=== PATIENT | female | born 2000 | race Caucasian/White ===

== ENCOUNTER 2018-01-24 21:07 | Emergency (ER) | payer OTHER, SELFPAY ==
[2018-01-24 21:08] VITALS: BP 124/78; PULSE 97; RESP 15; TEMP 36.7; BMI 43.7
[2018-01-24] MEDS: Naproxen 250 MG Tablet 500 MG PO (22:16)
--- NOTE | 2018-01-24 22:17 | ED.DCSUM_ITS ---
- ER Visit Summary Date of Service: 01/24/18 Chief Complaint: Low back pain History of Present Illness: The patient is a 17 F past medical history of noncemented diabetes. She states openly that she is noncompliant is not taking any medications and does not check her blood sugars. States that she has had low back pain now for approximately 3 weeks worse with movement. Denies any fall or trauma. Denies any fever or dysuria. She has never had back surgery. She denies any redness or swelling to her low back. No weakness or numbness in her lower extremities no bowel or bladder incontinence. No prior history. Physical Examination: Well-appearing young female. Vital signs are stable afebrile. She sitting upright in bed no distress. H EENT exam unremarkable. Neck nontender no lymphadenopathy. Lungs clear to auscultation bilaterally. Heart regular rhythm no murmur. Abdomen soft nontender nondistended normal bowel sounds no peritoneal signs. She is moving all 4 extremities. Neurovascular intact. No cauda equina. Normal medial thigh sensation. Normal motor strength in both lower extremities with 5 out of 5 motor strength with dorsi plantarflexion. Full range of motion intact. Normal sensation. Upper extremities are normal neurologically also. Her back exam there is no reproducible tenderness. No signs of trauma. No redness or warmth. No spine abnormalities. Over her lower lumbar coccyx area is where the pain is but there is no reproducible tenderness. There is no signs of a pilonidal cyst or abscess. Test Results: None Emergency Department Course and Treatment: Patient be placed on Naprosyn for pain. She will be referred to Dr. Blevins if she is not improving. We will check a BG T prior to discharge. Treatment Plan: Naprosyn for pain. Disposition: Discharge Impression: Musculoskeletal low back pain This note was generated with [employer] dictation software. It may contain incorrect words, spelling, and punctuation that were not noted in review of the chart prior to signing ED Disposition - Plan for ED Patient: Chief Complaint: Back Referrals: Care Physician,No Primary [Primary Care Provider] -
--- NOTE | 2018-01-24 22:17 | ED.DEP ---
ED Disposition - Plan for ED Patient: Disposition: Home or Assisted Living Chief Complaint: Back Instructions: ED Neck Back Pain General Prescriptions: Naproxen [Naprosyn] 500 mg PO BID PRN PRN #20 tab PRN Reason: Pain Referrals: Jose Cruz Robles MD [STAFF PHYSICIAN] - Additional Instructions: Ice and heat to the affected area of the lower back. Naprosyn for medication no more than 2 pills per day. Return if feeling worse weakness or numbness. Otherwise follow-up with Dr. Zander Robles to obtain a new primary care physician.
[2018-01-24 22:20] VITALS: PULSE 96; RESP 18
[2018-01-24 22:30] LABS: Bedside Glucose 110 mg/dL (70-110)
== END 2018-01-24 22:26 | disposition home or self-care (01) ==
PROVIDERS: Emergency Provider Emergency Medicine
DX: M54.5 Low back pain (principal); E11.9 Type 2 diabetes mellitus without complications; Z91.14 Patient's other noncompliance with medication regimen; Z91.19 Patient's noncompliance with other medical treatment and regimen; Z72.0 Tobacco use
CPT/HCPCS: 82962; 99282

== ENCOUNTER 2018-04-27 13:38 | Emergency (ER) | payer OTHER, MEDICAID, SELFPAY ==
[2018-04-27 13:39] VITALS: BP 122/83; PULSE 66; RESP 16; TEMP 36.4; O2SAT 98; BMI 28.3
[2018-04-27] MEDS: 0.9% Normal Saline 1,000 ML 999 ML IV (14:00)
--- NOTE | 2018-04-27 14:09 | ED.VISSUMM ---
- ER Visit Summary Date of Service: 04/27/18 Chief Complaint: Headache History of Present Illness: The patient is a 17 F who presents with a headache. Been going on for 3 hours. She states it is throbbing in both her bitemporal areas. She has had nausea with vomiting. She states that she is seeing spots. No direct trauma. No history of migraines in the past. She did not take any medications for this today. She does have a history of chronic back pain. Patient was seen at an urgent care today and directed to come to the emergency department for a stroke workup. Physical Examination: Vital signs reviewed. HEENT exam unremarkable. Heart is regular rate and rhythm without murmurs. Lungs are clear to auscultation. Abdomen is soft and nontender. Extremities reveal no edema. Skin exam normal. Neurologic exam normal. Test Results: HCG negative Emergency Department Course and Treatment: Patient received Compazine and Benadryl and IV fluids. She feels much better. This is likely a primary headache. She has no focal neurologic deficits. I do not feel that imaging is necessary at this time. I will give her naproxen for pain at home. She will follow-up with her PCP Treatment Plan: [] Disposition: Discharge Impression: Headache This note was generated with [email or web address] dictation software. It may contain incorrect words, spelling, and punctuation that were not noted in review of the chart prior to signing ED Disposition - Plan for ED Patient: Chief Complaint: Headache Referrals: Care Physician,No Primary [Primary Care Provider] -
[2018-04-27] MEDS: DiphenhydrAMINE 50 MG/ML Syringe 25 MG IV (14:18)
[2018-04-27] MEDS: proCHLORPERazine 10 MG/2 ML Vial IV (14:18)
[2018-04-27 14:41] LABS: Pregnancy, Serum, hCG Quali. NEGATIVE Negative (0-9 Nonpreg)
--- NOTE | 2018-04-27 15:01 | ED.DEP ---
ED Disposition - Plan for ED Patient: Disposition: Home or Assisted Living Chief Complaint: Headache Instructions: ED Cephalgia Unspecified Prescriptions: Naproxen [Naprosyn] 500 mg PO BID PRN #20 tab Referrals: Care Physician,No Primary [Primary Care Provider] -
[2018-04-27 15:22] VITALS: BP 98/66; PULSE 68; RESP 16
== END 2018-04-27 15:22 | disposition home or self-care (01) ==
PROVIDERS: Emergency Provider Emergency Medicine
DX: R51 Headache (principal); Z72.0 Tobacco use
CPT/HCPCS: 84703; 96361; 96374; 96375; 99285; J7030

== ENCOUNTER 2018-05-22 17:47 | Emergency (ER) | payer OTHER, MEDICAID, SELFPAY ==
[2018-05-22 17:49] VITALS: BP 118/68; PULSE 89; RESP 17; TEMP 37.2; O2SAT 100; BMI 28.2
--- NOTE | 2018-05-22 18:12 | ED.VISSUMM ---
- ER Visit Summary Date of Service: 05/22/18 Chief Complaint: Pelvic pain History of Present Illness: The patient is a 17 F 2 day history lower pelvic cramping. Home test positive a week ago. Abnormal menstrual periods, last menstrual period was January of this year. TIRE WRAPPER is in [place]. She has appointment upcoming week. She states she called her STEM MAKER today was told in the ED for workup with ultrasound. She takes vitamins. Denies any vaginal bleeding or discharge. Denies urinary symptoms. . History of thyroidectomy. States diabetic history. Takes no medications except for prenatals currently. Physical Examination: General: Alert and oriented ?3, no acute distress HEENT: Normocephalic, atraumatic. Moist mucosa membranes Neck: supple, nontender. Cardiovascular: Regular rate and rhythm, no murmurs Respiratory: Normal breath sounds, symmetric, no distress Abdomen: Soft, nontender, nondistended Extremities: Nontender, no edema, pulses intact ?4 Neuro: no focal neurological deficits. Test Results: Urine 100 leukocytes, WBCs 10-25. Urine culture pending. HCG 29,377. Ultrasound notes intrauterine 6 weeks and 0 days. Emergency Department Course and Treatment: Patient no vaginal bleeding or clots. Complains of cramping. She was given one [place]. Workup initiated hCG is 29,000. Ultrasound obtained intrauterine at 6 weeks. Urine did note signs of infections culture sent. With her being will be started on Macrobid. She will keep her follow-up with her OB. Smoking cessation discussed. Use Tylenol as needed. Treatment Plan: [] Disposition: Discharge Impression: 1. First trimester intrauterine 2. UTI in This note was generated with [employer] dictation software. It may contain incorrect words, spelling, and punctuation that were not noted in review of the chart prior to signing ED Disposition - Plan for ED Patient: Disposition: Home or Assisted Living Chief Complaint: Abd Pain Diagnosis: First trimester , UTI in Instructions: : Your First Trimester Changes, Understanding Urinary Tract Infections (UTIs) Prescriptions: Nitrofurantoin Macrocrystals [Macrobid] 100 mg PO Q12 #10 capsule Referrals: Care Physician,No Primary [Primary Care Provider] - Additional Instructions: Stop smoking. Continue prenatals. Take antibiotic as prescribed. Keep follow-up with your TIRE WRAPPER.
[2018-05-22 18:35] LABS: Mucous, Urine 0 SEEN /hpf (<or=2+)
[2018-05-22 18:39] LABS: Color, Urine Yellow (Yellow); Glucose, Dipstick Normal (Normal); Ketone-Dipstick 5 mg/dl (Negative); Leukocyte Esterase-Dipstick 100 /ul (Negative); Nitrite-Dipstick Negative (Negative); Occult Blood-Urine 10 /ul (Negative); Protein-Dipstick 15 mg/dl (Negative); Specific Gravity, Urine 1.015 (1.002-1.030); Urine Bilirubin Dipstick Negative (Negative); Urine Clarity Cloudy (Clear); Urine Urobilinogen 4 mg/dl (Normal)
[2018-05-22 18:50] LABS: Red Blood Cells-Urine 0-5 SEEN /hpf (0-5); Squamous Epithelial Cells - UA 0-5 SEEN /hpf (5-10)
[2018-05-22 18:51] LABS: Bacteria 1+ /hpf (None Seen)
[2018-05-22 18:52] LABS: Amorphous Sediment 3+; White Blood Cells 10-25 SEEN /hpf (0-5)
[2018-05-22] MEDS: HYDROcodone Bitartrate/Apap 5/325 Tablet PO (19:14)
[2018-05-22 19:26] LABS: hCG Titer Quant., Serum 29377 mIU/mL (<9 non-preg)
[2018-05-22] MEDS: Nitrofurantoin Macrocrystals 100 MG Capsule PO (20:40)
[2018-05-22 20:42] VITALS: BP 124/82; PULSE 75; RESP 18; O2SAT 96
== END 2018-05-22 20:46 | disposition home or self-care (01) ==
PROVIDERS: Emergency Provider Emergency Medicine
DX: O23.41 Unspecified infection of urinary tract in pregnancy, first trimester (principal); B96.89 Other specified bacterial agents as the cause of diseases classified elsewhere; O99.331 Smoking (tobacco) complicating pregnancy, first trimester; Z3A.01 Less than 8 weeks gestation of pregnancy
CPT/HCPCS: 36415; 76817; 81001; 84702; 87086; 87088; 87186; 99283

== ENCOUNTER → 2018-07-02 14:01 | Outpatient (CLI) | payer MEDICAID, OTHER, SELFPAY ==
[2018-07-02 14:28] LABS: Absolute Lymphocyte Count 1.77 X10^3/ul (0.83-4.51); Absolute Neutrophil Count 4.6 X10^3/uL (2.0-7.7); Eosinophil# 0.04 X10^3/uL; Eosinophils% 0.6 % (0-5); Hematocrit 35.4 % (37-47); Hemoglobin 11.7 g/dl (12.0-15.0); Lymphocyte # 1.77 X10^3/ul (4.0); Lymphocyte % 26.4 % (19-41); Mean Corp Hgb Conc 33.1 g/gl (32-36); Mean Corpuscular Hgb 29.3 pg (27.0-32.0); Mean Corpuscular Volume 88.7 fL (81-99); Mean Platelet Vol. 10.2 fl (6.2-12.0); Monocyte# 0.28 X10^3/uL; Monocyte% 4.2 % (0-10); Neutrophil % 68.5 % (47-70); POSITIVE COUNT NO; POSITIVE DIFFERENTIAL NO; POSITIVE MORPHOLOGY NO; Platelet Count 259 K/mm3 (150-450); RBC Distribution Width CV 14.4 % (11.6-14.6); RBC Distribution Width SD 46.6 fl (35.1-43.9); Red Blood Count 3.99 M/mm3 (4.2-5.4); White Blood Count 6.7 K/mm3 (4.4-11.0)
[2018-07-02 14:46] LABS: Protein, Urine (Random) 17.2 mg/dL (<11.9); Protein:Creat Ratio 91 mg/g CRE (0-200)
[2018-07-02 14:50] LABS: Hemoglobin A1c 5.6 % (4.2-6.3)
[2018-07-02 15:11] LABS: ALB/GLOB Ratio 0.9 RATIO (0.9-2.4); AST(SGOT) 12 U/L (15-37); Alanine Aminotransfer ALT/SGPT 15 U/L (13-56); Albumin, Serum 3.5 g/dL (3.2-5.0); Alkaline Phosphatase 77 U/L (45-117); Anion Gap 9 (5-15); BUN 6 mg/dL (7-18); BUN/Creat Ratio 10.3 RATIO (10-20); Calcium,Total 8.9 mg/dL (8.5-10.1); Chloride 105 mmol/L (98-107); Creatinine, Serum 0.58 mg/dL (0.55-1.02); EST Glomerular Filtration Rate 141 mL/min (>60); Est Glom Filt Rate - Afr Amer 170 mL/min (>60); Glucose 87 mg/dL (74-106); Potassium 3.7 mmol/L (3.5-5.1); Protein, Total 7.5 g/dL (6.4-8.2); Sodium Level 140 mmol/L (136-145); T4 Free Direct 0.46 ng/dL (0.76-1.46)
[2018-07-02 15:21] LABS: Amphetamine Urine VISTA NEGATIVE (<1000 ng/mL); Barbiturate Urine VISTA NEGATIVE (< 200 ng/mL); Benzodiazepine Urine VISTA NEGATIVE (< 200 ng/mL); Cocaine Urine VISTA NEGATIVE (< 300 ng/mL); Ecstacy Urine VISTA NEGATIVE (< 500 ng/mL); Methadone Urine VISTA NEGATIVE (< 300 ng/mL); PCP Urine VISTA NEGATIVE (< 25 ng/mL); THC Urine VISTA POSITIVE (< 50 ng/mL); Vista UDS pH Range 7
[2018-07-02 15:50] LABS: HIV - WCH Non-Reactive (Nonreactive); Rubella IgG 24.9 IU/mL
[2018-07-02 16:17] LABS: Chlamydia Trachomatis by PCR Negative (Negative); Neisserai gonorrhoeae by PCR Negative (Negative); Probe Check PASS; Sample Adequacy Control PASS; Specimen Processing Control PASS
[2018-07-07 13:54] LABS: CF, Screen Comment: (.); HEPATITIS B SURFACE AG Negative (Negative)
[2018-07-09 05:43] LABS: Rapid Plasmin Reagin (RPR) NONREACTIVE (NONREACTIVE)
== END ==
PROVIDERS: Referring Provider Obstetrics & Gynecology; Visit Provider Obstetrics & Gynecology
DX: O09.91 Supervision of high risk pregnancy, unspecified, first trimester (principal); Z3A.00 Weeks of gestation of pregnancy not specified
CPT/HCPCS: 36415; 80053; 80307; 81220; 82570; 83036; 84156; 84439; 84443; 85025; 86592; 86703; 86762; 86850; 86900; 87086; 87088; 87186; 87340; 87491; 87591

== ENCOUNTER → 2018-07-02 17:23 | Outpatient (CLI) | payer MEDICAID, OTHER, SELFPAY ==
[2018-07-02 19:32] LABS: Chlamydia Trachomatis by PCR Negative (Negative); Neisserai gonorrhoeae by PCR Negative (Negative); Probe Check PASS; Sample Adequacy Control PASS; Specimen Processing Control PASS
== END ==
PROVIDERS: Referring Provider Obstetrics & Gynecology; Visit Provider Obstetrics & Gynecology
DX: O09.91 Supervision of high risk pregnancy, unspecified, first trimester (principal); Z3A.00 Weeks of gestation of pregnancy not specified
CPT/HCPCS: 36415; 80053; 80307; 81220; 82570; 83036; 84156; 84439; 84443; 85025; 86592; 86703; 86762; 86850; 86900; 87086; 87088; 87186; 87340; 87491; 87591

== ENCOUNTER → 2018-08-27 13:12 | Outpatient (CLI) | payer OTHER, MEDICAID, SELFPAY ==
[2018-08-27 13:37] LABS: Absolute Neutrophil Count 7.6 X10^3/uL (2.0-7.7); Basophil# 0.01 X10^3/uL; Basophil% 0.1 % (0-1); Differential Indicated SCAN CRITERIA MET; Eosinophil# 0.03 X10^3/uL; Eosinophils% 0.3 % (0-5); Hematocrit 29.4 % (37-47); Hemoglobin 9.7 g/dl (12.0-15.0); Lymphocyte % 17.2 % (19-41); Mean Corpuscular Hgb 29.3 pg (27.0-32.0); Mean Corpuscular Volume 88.8 fL (81-99); Mean Platelet Vol. 9.3 fl (6.2-12.0); Monocyte# 0.53 X10^3/uL; Monocyte% 5.3 % (0-10); Neutrophil # 7.58 X10^3/uL (2.7-7.7); Neutrophil % 76.5 % (47-70); POSITIVE COUNT NO; POSITIVE DIFFERENTIAL NO; POSITIVE MORPHOLOGY YES; Platelet Count 292 K/mm3 (150-450); RBC Distribution Width CV 14.6 % (11.6-14.6); RBC Distribution Width SD 47.7 fl (35.1-43.9); Red Blood Count 3.31 M/mm3 (4.2-5.4); White Blood Count 9.9 K/mm3 (4.4-11.0)
--- OUTSIDE RECORDS SUMMARY | 2018-10-22 12:23 | XMS RPT_ITS ---
:2000 Author Organization OHIP Support Name Relationship Address Phone [employer] Unavailable [address] + [place] [address] [facility] Unavailable [address] + [place] [address] [employer] Unavailable [address] + [place] [address] [facility] Unavailable [address] + [place] [address] [facility] Unavailable Unavailable + [place] [address] [facility] Unavailable + [place] [address] [employer] Unavailable [address] + [place] [address] [facility] CHARIS Unavailable [address] + [place] [address] [facility] Unavailable [address] + [place] [address] UE Unavailable Unavailable Unavailable [facility] Unavailable [address] + [place] [address] UE Unavailable Unavailable Unavailable [facility]IS Unavailable Unavailable + [place] [address] [facility] Unavailable Unavailable + [place] [address] [facility] Unavailable [address] + [place] [address] UE Unavailable Unavailable Unavailable [facility] Unavailable [address] + [place] [address] UE Unavailable Unavailable Unavailable Charis Montalvo Unavailable [address] [place] + [place] [address] UE Unavailable Unavailable Unavailable UE Unavailable Unavailable Unavailable UE Unavailable Unavailable Unavailable UE Unavailable Unavailable Unavailable ROBIND Unavailable [address] + [address] [place] [address] Care Team Providers Name Role Phone EFRAIN ROSAS Attending Unavailable MARCANTHONY, KATERINE Styles Referring Unavailable INGRID, CRYSTAL Primary Care Unavailable RENY BARRON Attending Unavailable MARCANTHONY, KATERINE E Referring Unavailable INGRID, CRYSTAL Primary Care Unavailable Marcanthony, Katerine Attending Unavailable Marcanthony, Katerine Referring Unavailable Primay Care Physicia, No Primary Care Unavailable Marcanthony, Katreine Attending Unavailable Marcanthony, Katerine Referring Unavailable Primay Care Physicia, No Primary Care Unavailable Marcanthony, Katerine Consulting Unavailable Dhruv Reid Attending Unavailable Primay Care Physicia, No Primary Care Unavailable Jose Antonio Everett Attending Unavailable Primay Care Physicia, No Primary Care Unavailable Ander Mckeon Attending Unavailable Primay Care Physicia, No Primary Care Unavailable Daisy, Oumar Attending Unavailable Le, Oumar Referring Unavailable Marcanthony, Katerine Attending Unavailable Primay Care Physicia, No Referring Unavailable Marcanthony, Katerine Attending Unavailable Marcanthony, Katerine Referring Unavailable Primay Care Physicia, No Primary Care Unavailable Marcanthony, Katerine Attending Unavailable Marcanthony, Katerine Referring Unavailable Marcanthony, Katerine Attending Unavailable Primay Care Physicia, No Referring Unavailable Marcanthony, Katerine Attending Unavailable Primay Care Physicia, No Referring Unavailable Marcanthony, Katerine Attending Unavailable Marcanthony, Katerine Referring Unavailable Primay Care Physicia, No Primary Care Unavailable PROBLEMS PROBLEMS DATE TYPE CONDITION / CODE ATTENDING STATUS SOURCE 2018 Unknown O09.299 - Marcanthony, Active [place] Supervision of [facility] with Hospital other poor Repository reproductive or obstetric history, unspecified trimester / O09.299(ICD-10) 2018 Unknown Z82.79 - Family Marcanthony, Active [place] history of other [facility] congenital Hospital malformations, Repository deformations and chromosomal abnormalities / Z82.79(ICD-10) 2018 Unknown O99.332 - Smoking Marcanthmarah, Active [place] (tobacco) [facility] complicating Hospital , second Repository trimester / O99.332(ICD-10) 2018 Unknown O99.282 - Marcanthony, Active [place] Endocrine, [facility] nutritional and Hospital metabolic diseases Repository complicating , second trimester / O99.282(ICD-10) 2018 Unknown O34.219 - Maternal Marcanthony, Active [place] care for [facility] unspecified type Hospital scar from previous Repository delivery / O34.219(ICD-10) 2018 Unknown Z87.898 - Personal Marcanthony, Active [place] history of other [facility] specified Hospital conditions / Repository Z87.898(ICD-10) 2018 Unknown O09.92 - Marcanthony, Active [place] Supervision of high [facility] risk , Hospital unspecified, second Repository trimester / O09.92(ICD-10) 2018 Unknown G40.909 - Epilepsy, Marcanthony, Active [place] unspecified, not [facility] intractable, Hospital without status Repository epilepticus / G40.909(ICD-10) 2018 Unknown Z3A.19 - 19 weeks Marcanthony, Active [place] gestation of [facility] / Hospital Z3A.19(ICD-10) Repository 07/30/2018 Unknown E03.9 - Marcanthony, Active [place] Hypothyroidism, [facility] unspecified / Hospital E03.9(ICD-10) Repository 07/03/2018 Unknown Z34.90 - Encounter Marcanthony, Active [place] for supervision of [facility] normal , Hospital unspecified, Repository unspecified trimester / Z34.90(ICD-10) 07/02/2018 Unknown O09.90 - Marcanthony, Active [place] Supervision of high [facility] risk , Hospital unspecified, Repository unspecified trimester / O09.90(ICD-10) 07/02/2018 Unknown O09.91 - Marcanthony, Active [place] Supervision of high [facility] risk , Hospital unspecified, first Repository trimester / O09.91(ICD-10) PROCEDURES PROCEDURES No Procedure Records FoundRESULTS RESULTS CBC W/DIFF, AUTOMATED Collected: 2018 Status: F Source: [place] 1:21 PM [facility] REPOSITORY TYPE CODE TESTS RESULT OUT OF RANGE REFERENCE UNITS LAB L100.1000 4.4-11.0 K/mm3 Normal WBC 9.9 LAB L100.1200 4.2-5.4 M/mm3 Low RBC 3.31 LAB L100.1300 12.0-15.0 g/dl Low HGB 9.7 LAB L100.1400 37-47 % Low HCT 29.4 LAB L100.1500 81-99 fL Normal MCV 88.8 LAB L100.1600 27.0-32.0 pg Normal MCH 29.3 LAB L100.1700 32-36 g/gl Normal MCHC 33.0 LAB L100.1810 11.6-14.6 % Normal RDW CV 14.6 LAB L100.1820 35.1-43.9 fl High RDW SD 47.7 LAB L100.1900 150-450 K/mm3 Normal PLT 292 LAB L100.2000 6.2-12.0 fl Normal MPV 9.3 LAB L100.2100 47-70 % High NEUT% 76.5 LAB L100.2200 19-41 % Low LY% 17.2 LAB L100.2300 0-10 % Normal MONO% 5.3 LAB L100.2400 0-5 % Normal EO% 0.3 LAB L100.2500 0-1 % Normal BASO% 0.1 LAB L100.2550 0.0-0.9 % Normal IM GRAN % 0.600 Result Comment: IG% - Immature Granulocytes (promyelocytes, myelocytes and metamyelocytes) > 1% indicates that a LEFT SHIFT is Present. LAB L100.2620 2.0-7.7 X10 3/uL Normal Absolute Neut 7.6 LAB L100.2720 0.83-4.51 X10 3/ul Normal Absolute Lymph 1.70 Performed By: #### L100.0100 #### [facility] [address] [place], [place], [id number] TYPE AND SCREEN Collected: 2018 Status: F Source: [place] 1:21 PM [facility] REPOSITORY Order Comment: Reason for Type AND Screen/Red Cells: TYPE CODE TESTS RESULT OUT OF RANGE REFERENCE UNITS LAB B10.0800 O Normal BLOOD TYPE GEL POSITIVE LAB B100.4000 Normal Antibody NEGATIVE Screen Performed By: #### B101.7450 #### [facility] [address] [place], [address] POLICE DETECTIVE OFFICE VISIT Observed: 2018 Status: F Source: [place] REPORT 1:09 PM [facility] REPOSITORY [facility] [address] [place] [address] OFFICE VISIT Date of Service: 08/27/18 MR#: [id number] Acct: [id number] Name: SABRA MONTALVO Rep #: [id number] : 2000 Provider: Katerine Mcnulty MD Age/Sex: 18/F Location: [facility] Status: Signed Intake Vital Signs08/27/18 Height 5 ft 4 in 08/27/18 Weight: 175 lb 08/27/18 Body Mass Index (BMI) 30.0 08/27/18 Blood Pressure 114/70 Intake Visit Reasons: 19 weeks Chief Complaint: est ob Air Pollution Engineer Required: No Is patient in pain?: No Allergies levothyroxine sodium [From Synthroid] Allergy (Verified 08/27/18 12:56) Other Medications Prenatabs FA 1 tab PO DAILY 05/22/18 [History Confirmed 08/27/18] folic acid 1 mg tablet 4 mg PO DAILY #120 tab 07/02/18 [Rx Confirmed 08/27/18] thyroid (pork) 15 mg tablet 15 mg PO DAILY #30 tab 07/03/18 [Rx Confirmed 08/27/18] Last Menstral Period: 04/22/18 Zika: Zika virus screening: Negative : No PFSH PFSH Medical History Diabetes (Acute) Epilepsy (Acute) Graves disease (Acute) Surgical History delivery delivered (Acute) H/O thyroidectomy (Acute) Family History Mother Cancer unknown Social History Smoking Status: Current every day smoker alcohol intake: never substance use type: marijuana caffeine: Yes what type of physical activity do you participate in: none seatbelt use: always do you feel safe at home: Yes additional social history: single- unemployed Pregancy History 3 Elective abortions Hx Para 1 Spontaneous abortions Past Pregnancies Del. DateName GA/Weeks Outcome Route Bth WeighInfant GeLabor LgtAnesthesiDel LocatProvider FOB t n h a n HPI 19 weeks: Details: SABRA MONTALVO is a 18 year old who presents for routine OB visit. patient states that she fell down the steps Thursday evening and landed on her back into the [facility] OB Visit GUIDO Calculator Estimated Delivery Date 01/15/19 Based on Ultrasound Date 05/22/18 Current WG 19w 6d Number 1 Initial Weight: Not Recorded Date Weight BP Urine PrFHR FuHt Pres MoCTX DilationFetal StVisit NoProviderComments E ot v te GA G Effac lucose ed Visit Notes Visit Date: 08/27/18 no vb lof some fm. no cramping. Katerine Mcnulty MD on 08/27/18 Visit Date: 07/30/18 no vb lof cramping states she has had one seizure she is trying to get in with a neurologist. she started her thyroid medicine but she hasn't made any visits yet Katerine Mcnulty MD on 07/30/18 ACOG First Trimester First Trimester: Desire for , Alcohol, Tobacco Cessation, Illicit/Recreational Drug/Substance Use, Intimate Partner Violence, Barriers to care, Unstable Housing, Communication Barriers, Environmental/Work Hazards, Anticipated Course of Care, Toxoplasmosis Precations, Use of Any medications, Sexual activity, Exercise, Dental Care, Sauna/Hot tub use, Seat Belt use, Childbirth classes/Hospital facilities, , Travel, Indications for US and Screening for Aneuploidy Diagnostics Diagnostics Labs Blood Type O POSITIVE 07/02/18 Antibody Screen NEGATIVE 07/02/18 Hct 35.4 % (37-47) L 07/02/18 Hgb 11.7 g/dl (12.0-15.0) L 07/02/18 Obstetrics Ultrasound 05/22/18 Rubella IgG Antibody 24.9 IU/mL 07/02/18 RPR NONREACTIVE (NONREACTIVE) 07/02/18 Hep Bs Antigen Negative (Negative) 07/02/18 Chlam trachomat DNA PCR Negative (Negative) 07/02/18 N.gonorrhoeae DNA (PCR) Negative (Negative) 07/02/18 Details: HIV: Urine Culture: Sequential Screen: NIPT Screen: ROS Const Denies fever(s) GI Denies abdominal pain, Reports as per HPI Denies vaginal discharge, Denies abnormal vaginal bleeding, Reports as per HPI Exam Const General: healthy appearing, comfortable, no acute distress GI Inspection: normal to inspection Palpation: soft, nontender Results [id number] Office Urine Glucose Negative Last Edit by Fransisca Delarosa on 08/27/18 13:01 Office Urine Protein Negative Last Edit by Fransisca Delarosa on 08/27/18 13:01 Assessment AND Plan Problems 1. 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 Family history of spina bifida Z82.79 4 mg folic acid 3. Tobacco smoking affecting in second trimester O99.332 encouraged cessation 4. Hypothyroidism affecting in second trimester O99.282 h/o thyroid removal. ordered testing 5. History of delivery affecting O34.219 considering 6. History of marijuana use Z87.898 encouraged cessation 7. Supervision of high risk in second trimester O09.92 [place] 01/15/19 TONY Urban (Nanci Jimenez) 8. Nonintractable epilepsy without status epilepticus, unspecified epilepsy type G40.909 neuro consult. no meds. last seizure 07/15 9. 19 weeks gestation of Z3A.19 NT normal, second part of sequential screen at 15-18 weeks. Plan ACOG trimester education reviewed and updated. see problem list details for updated plan management information and see below for orders placed at this visit. GA appropriate handout given. Orders Orders: Coding Level of Care Code Off vis,est,level 3 Diagnoses History of abnormality in previous , currently O09.299 Family history of spina bifida Z82.79 Tobacco smoking affecting in second trimester O99.332 Trimester: second trimester Hypothyroidism affecting in second trimester O99.282 Trimester: second trimester History of delivery affecting O34.219 History of marijuana use Z87.898 Supervision of high risk in second trimester O09.92 Trimester: second trimester Nonintractable epilepsy without status epilepticus, unspecified epilepsy type G40.909 Epilepsy type: unspecified Intractability: not intractable Status epilepticus: without status epilepticus 19 weeks gestation of Z3A.19 Weeks of gestation: 19 weeks 08/27/18 1309 <Electronically signed by Katerine Mcnulty MD> Date Katerine Mcnulty MD Cosigner Signature: Date (if applicable) CC: POLICE DETECTIVE OFFICE VISIT Observed: 07/30/2018 Status: F Source: [place] REPORT 1:47 PM [facility] REPOSITORY [facility] [address] [place], [place] [address]. [address] [place] [address] OFFICE VISIT Date of Service: 07/30/18 MR#: [id number] Acct: [id number] Name: SABRA MONTALVO Desirae Rep #: [id number] : 2000 Provider: Katerine Mcnulty MD Age/Sex: 17/F Location: [facility] Status: Signed Intake Vital Signs07/30/18 Height 5 ft 4 in 07/30/18 Weight: 167 lb 07/30/18 Body Mass Index (BMI) 28.6 07/30/18 Blood Pressure 114/80 Intake Visit Reasons: 15 weeks/Discuss questions about MFM (see note) Chief Complaint: est ob, questions about MFM Air Pollution Engineer Required: No Is patient in pain?: No Allergies levothyroxine sodium [From Synthroid] Allergy (Verified 07/30/18 13:17) Other Medications Nitrofurantoin Macrocrystals [Macrobid] 100 mg PO Q12 #10 cap 05/22/18 [Rx Confirmed 07/30/18] Prenatabs FA 1 tab PO DAILY 05/22/18 [History Confirmed 07/30/18] folic acid 1 mg tablet 4 mg PO DAILY #120 tab 07/02/18 [Rx Confirmed 07/30/18] thyroid (pork) 15 mg tablet 15 mg PO DAILY #30 tab 07/03/18 [Rx Confirmed 07/30/18] Last Menstral Period: 04/22/18 Zika: Zika virus screening: Negative : No PFSH PFSH Medical History Diabetes (Acute) Epilepsy (Acute) Graves disease (Acute) Surgical History delivery delivered (Acute) H/O thyroidectomy (Acute) Family History Mother Cancer unknown Social History Smoking Status: Current every day smoker alcohol intake: never substance use type: marijuana caffeine: Yes what type of physical activity do you participate in: none seatbelt use: always do you feel safe at home: Yes additional social history: single- unemployed Pregancy History 3 Elective abortions Hx Para 1 Spontaneous abortions Past Pregnancies Del. DateName GA/Weeks Outcome Route Bth WeighInfant GeLabor LgtAnesthesiDel LocatProvider FOB t n h a n HPI 15 weeks/Discuss questions about MFM (see note): Details: SABRA MONTALVO is a 17 year old who presents for routine OB visit. OB Visit GUIDO Calculator Estimated Delivery Date 01/15/19 Based on Ultrasound Date 05/22/18 Current WG 15w 6d Number 1 Initial Weight: Not Recorded Date Weight BP Urine PrFHR FuHt Pres MoCTX DilationFetal StVisit NoProviderComments E ot v te GA G Effac lucose ed Visit Notes Visit Date: 07/30/18 no vb lof cramping states she has had one seizure she is trying to get in with a neurologist. she started her thyroid medicine but she hasn't made any visits yet Katerine Mcnulty MD on 07/30/18 ACOG First Trimester First Trimester: Desire for , Alcohol, Tobacco Cessation, Illicit/Recreational Drug/Substance Use, Intimate Partner Violence, Barriers to care, Unstable Housing, Communication Barriers, Environmental/Work Hazards, Anticipated Course of Care, Toxoplasmosis Precations, Use of Any medications, Sexual activity, Exercise, Dental Care, Sauna/Hot tub use, Seat Belt use, Childbirth classes/Hospital facilities, , Travel, Indications for US and Screening for Aneuploidy Diagnostics Diagnostics Labs Blood Type O POSITIVE 07/02/18 Antibody Screen NEGATIVE 07/02/18 Hct 35.4 % (37-47) L 07/02/18 Hgb 11.7 g/dl (12.0-15.0) L 07/02/18 Obstetrics Ultrasound 05/22/18 Rubella IgG Antibody 24.9 IU/mL 07/02/18 RPR NONREACTIVE (NONREACTIVE) 07/02/18 Hep Bs Antigen Negative (Negative) 07/02/18 Chlam trachomat DNA PCR Negative (Negative) 07/02/18 N.gonorrhoeae DNA (PCR) Negative (Negative) 07/02/18 Details: HIV: Urine Culture: Sequential Screen: NIPT Screen: ROS Const Denies fever(s) GI Denies abdominal pain, Reports as per HPI Denies vaginal discharge, Denies abnormal vaginal bleeding, Reports as per HPI Exam Const General: healthy appearing, comfortable, no acute distress GI Inspection: normal to inspection Palpation: soft, nontender Results [id number] Office Urine Glucose Negative Last Edit by Fransisca Delarosa on 07/30/18 13:19 Office Urine Protein Negative Last Edit by Fransisca Delarosa on 07/30/18 13:19 Assessment AND Plan Problems 1. 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 Family history of spina bifida Z82.79 4 mg folic acid 3. Tobacco smoking affecting in second trimester O99.332 encouraged cessation 4. Hypothyroidism affecting in second trimester O99.282; E03.9 h/o thyroid removal. ordered testing 5. History of delivery affecting O34.219 considering 6. History of marijuana use Z87.898 encouraged cessation 7. Supervision of high risk in second trimester O09.92 GUIDO 01/15/19 TONY Urban (Nanci Jimenez) 8. Nonintractable epilepsy without status epilepticus, unspecified epilepsy type G40.909 neuro consult. no meds. last seizure 07/15 Plan ACOG trimester education reviewed and updated. see problem list details for updated plan management information and see below for orders placed at this visit. [place] appropriate handout given. Orders Orders: Coding Level of Care Code Off vis,est,level 3 Diagnoses History of abnormality in previous , currently O09.299 Family history of spina bifida Z82.79 Tobacco smoking affecting in second trimester O99.332 Trimester: second trimester Hypothyroidism affecting in second trimester O99.282; E03.9 Trimester: second trimester History of delivery affecting O34.219 History of marijuana use Z87.898 Supervision of high risk in second trimester O09.92 Trimester: second trimester Nonintractable epilepsy without status epilepticus, unspecified epilepsy type G40.909 Epilepsy type: unspecified Intractability: not intractable Status epilepticus: without status epilepticus 07/30/18 1347 <Electronically signed by Katerine Mcnulty MD> Date Katerine Mcnulty MD Cosigner Signature: Date (if applicable) CC: POLICE DETECTIVE OFFICE VISIT Observed: 07/02/2018 Status: F Source: [place] REPORT 8:[address] [facility] [address] [place] [address] OFFICE VISIT Date of Service: 07/02/18 MR#: [id number] Acct: [id number] Name: MICHELLEGERARD Dos SantosRob Merrill Rep #: [id number] : 2000 Provider: Katerine Mcnulty MD Age/Sex: 17/F Location: [facility] Status: Signed Intake Vital Signs07/02/18 Height 5 ft 4 in 07/02/18 Weight: 169 lb 07/02/18 Body Mass Index (BMI) 29.0 07/02/18 Blood Pressure 112/80 Intake Visit Reasons: NOB - LMP MID MARCH (11 WEEKS?) Chief Complaint: NEW OB Air Pollution Engineer Required: No Is patient in pain?: No Allergies levothyroxine sodium [From Synthroid] Allergy (Verified 07/02/18 12:52) Other Medications Nitrofurantoin Macrocrystals [Macrobid] 100 mg PO Q12 #10 cap 08/25/18 [Rx] Prenatabs FA 1 tab PO DAILY 05/22/18 [History Confirmed 07/02/18] folic acid 1 mg tablet 4 mg PO DAILY #120 tab 07/02/18 [Rx Confirmed 07/02/18] Last Menstral Period: 04/22/18 Zika: Zika virus screening: Negative : No PFSH PFSH Medical History Diabetes (Acute) Epilepsy (Acute) Graves disease (Acute) Surgical History delivery delivered (Acute) H/O thyroidectomy (Acute) Family History Mother Cancer unknown Social History Smoking Status: Current every day smoker alcohol intake: never substance use type: marijuana caffeine: Yes what type of physical activity do you participate in: none seatbelt use: always do you feel safe at home: Yes additional social history: single- unemployed Pregancy History 3 Elective abortions Hx Para 1 Spontaneous abortions Past Pregnancies Del. DateName GA/Weeks Outcome Route Bth WeighInfant GeLabor LgtAnesthesiDel LocatProvider FOB t n h a n HPI NOB - LMP MID MARCH (11 WEEKS?): Details: SABRA MONTALVO is a 17 year old who presents for New OB visit. unable to give urine specimen OB Visit Menstrual History Last Menstral Period: 04/22/18 Reported LMP: definite Normal amount/duration: Yes On hormonal BC at conception: No Antepartum Record Genetic Screening: Congenital Heart Defect: Other, Neural Tube Defect: Patient (sister spina bifida), Hemoglobinopathy Or Carrier: Other, Cystic Fibrosis: Other, Chromosome Abnormality: Other, Eb-Sachs: Other, Hemophilia: Other, Intellectual Disability/Autism: Other, Recurrent Loss/Stillbirth: Other, Other Structural Defect: Patient (child with TE malformation), Other Genetic Disease: Other, Maternal Metabolic Disorder: Other Infection History: Live with someone with TB or Exposed to TB: No, Patient or Partner has history of Genital Herpes: No, Rash or Viral illness since last mentrual period: No, Prior GBS-Infected child: No, History of STD: No, HIV Infection: No, History of Hepatitis: No, Recent travel outside of [place]: No, Concern for Hep exposure: No, Varicella immune: Yes Medical History Medical History: Positive: Diabetes, Auto-immune disorder, Neurologic/epilepsy, Thyroid dysfunction, Operations/hospitalizations, Negative: Hypertension, Heart disease, Kidney disease/UTI, Psychiatric, Depression/ depression, Hepatitis/liver disease, Varicosities/phlebitis, Trauma/domestic violence, History of blood transfusions, D (Rh) Sensitized, Pulmonary (e.g.,TB,Asthma), Seasonal allergies, Drug/latex allergies/reactions, Breast, Jewish Thought Professor surgery, Anesthetic complications, History of abnormal pap, Uterine anomaly/twan, Infertility, Anti-retroviral treatment, Relevant family history, Other ACOG First Trimester First Trimester: Desire for , Alcohol, Tobacco Cessation, Illicit/Recreational Drug/Substance Use, Intimate Partner Violence, Barriers to care, Unstable Housing, Communication Barriers, Environmental/Work Hazards, Anticipated Course of Care, Nurtrition and weight gain, Toxoplasmosis Precations, Use of Any medications, Sexual activity, Exercise, Dental Care, Sauna/Hot tub use, Seat Belt use, Childbirth classes/Hospital facilities, , Travel, Indications for US and Screening for Aneuploidy ROS Const Denies fever(s), Reports system reviewed and no additional complaints, except as docu, Reports fatigue Eyes Reports system reviewed and no additional complaints, except as docu ENT Reports system reviewed and no additional complaints, except as docu Card Denies chest pain, Denies shortness of breath Resp Reports system reviewed and no additional complaints, except as docu, Denies shortness of breath, Denies cough GI Reports nausea, Denies abdominal pain Reports system reviewed and no additional complaints, except as docu Musc Reports system reviewed and no additional complaints, except as docu Skin/Breast Reports system reviewed and no additional complaints, except as docu Neuro Yes system reviewed and no additional complaints, except as docu Psych Reports system reviewed and no additional complaints, except as docu Endo Reports fatigue, Reports system reviewed and no additional complaints, except as docu Exam Const General: healthy appearing, comfortable, no acute distress Orientation: alert [facility] Head: normal to inspection, atraumatic, normocephalic Ears: external ears normal, hearing grossly normal bilaterally Nose: nares normal, external nose normal Mouth: oral mucosae normal Teeth and gingiva: dentition normal Eyes General: appearance normal, both eyes and all related structures Neck Neck: no lymphadenopathy, supple, normal visual inspection Thyroid: thyroid normal Chest Chest palpation AND inspection: normal inspection of the chest Breast inspection: normal inspection of the breasts, normal inspection of the axillae Breast palpation: normal palpation of the breasts, normal palpation of the axillae Resp Effort AND Inspection: normal respiratory effort GI Inspection: normal to inspection Palpation: soft, no hepatosplenomegaly General: bladder normal to palpation External Female Exam: normal external appearance, normal appearance of the urethra Urethra: normal appearance of the urethra Speculum Exam - Vagina: normal appearance of the vagina, normal vaginal discharge Speculum Exam - Cervix: normal appearance of the cervix Bimanual Exam- Vagina AND Uterus: bladder normal to palpation, normal bimanual exam, uterus non-tender, other Bimanual Exam- Adnexa, other: adnexae non-tender Skin General: no rashes or lesions noted Neuro Motor: muscle tone normal throughout, no movement abnormalities noted Extrem General: normal to inspection, full ROM Assessment AND Plan Problems 1. History of delivery affecting O34.219 considering 2. Hypothyroidism affecting in first trimester O99.281; E03.9 h/o thyroid removal. ordered testing 3. Nonintractable epilepsy without status epilepticus, unspecified epilepsy type G40.909 neuro consult. no meds. last seizure several months ago 4. Pre-existing type 2 diabetes mellitus during in first trimester O24.111 no meds. testing order and endocrine, mfm consult 5. Supervision of high risk in first trimester O09.91 GUIDO 01/15/19 TONY Urban (Nanci Jimenez) 6. Family history of spina bifida Z82.79 4 mg folic acid 7. Tobacco smoking affecting in first trimester O99.331 encouraged cessation 8. History of marijuana use Z87.898 encouraged cessation 9. 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 ACOG book offered to patient. Discussed routine and specially indicated labs if needed- patient consents to testing. see problem list details for plan information. Optional screening including carrier screenings, neural tube defect screening, sequential screening, and NIPT screening offered to patient and patient chose: sequential screen Orders Orders: Referrals: Medications New: Supplemental Info ACOG book given and patient encouraged to read about nutrition, exercise, weight gain, and food avoidance in . Coding Level of Care Code Off vis,new,level 5 Diagnoses History of delivery affecting O34.219 Hypothyroidism affecting in first trimester O99.281; E03.9 Trimester: first trimester Nonintractable epilepsy without status epilepticus, unspecified epilepsy type G40.909 Epilepsy type: unspecified Intractability: not intractable Status epilepticus: without status epilepticus Pre-existing type 2 diabetes mellitus during in first trimester O24.111 Diabetes in type: pre-existing, type 2 Trimester: first trimester Supervision of high risk in first trimester O09.91 Trimester: first trimester Family history of spina bifida Z82.79 Tobacco smoking affecting in first trimester O99.331 Trimester: first trimester History of marijuana use Z87.898 History of abnormality in previous , currently O09.299 07/02/182056 <Electronically signed by Katerine Mcnulty MD> Date Katerine Mcnulty MD Cosigner Signature: Date (if applicable) CC: CT/NG [facility] BY PCR Collected: 07/02/2018 Status: F Source: [place] 5:25 PM [facility] REPOSITORY TYPE CODE TESTS RESULT OUT OF RANGE REFERENCE UNITS LAB L8200.2100 Negative Normal Chlam Negative Trac PCR LAB L8200.2200 Negative Normal NG by Negative PCR Performed By: #### L8200.2000 #### [facility] [address] [place], [address] URINE DRUG SCREEN Collected: 07/02/2018 Status: F Source: NEGRITA (AMELIATA) 2:10 PM [facility] REPOSITORY Order Comment: List of Drugs Taken or Suspected? UNK TYPE CODE TESTS RESULT OUT OF RANGE REFERENCE UNITS LAB L505.0075 TO BE Normal CONFIRMED Result Comment: CONFIRMATORY TESTING FOR ALL POSITIVE URINE DRUG SCREEN RESULTS WILL ONLY BE SENT OUT UPON PHYSICIAN ORDER. AARON Urine Drug Screen methods provide only preliminary analytical test results. A more specific alternate chemical method must be used in order to obtain a confirmed analytical result. Gas chromatography/mass spectrometery (GC/MS) is the preferred confirmatory method. Clinical consideration and professional judgement should be applied to any drug of abuse test result, particularly when preliminary positive results are used. URINE TCA TESTING MUST BE ORDERED SEPARATELY. USE TEST MNEMONIC: [facility] LAB L505.5005 VISTA UDS PH 7 Normal LAB L505.5015 <1000 ng/mL AMPHETAMINES Normal NEGATIVE LAB L505.5025 < 200 ng/mL BARBITIURATES Normal NEGATIVE LAB L505.5035 < 200 ng/mL BENZODIAZIPINE Normal NEGATIVE LAB L505.5045 < 300 ng/mL COCAINE Normal NEGATIVE LAB L505.5055 < 500 ng/mL ECSTACY Normal NEGATIVE LAB L505.5065 < 300 ng/mL METHADONE Normal NEGATIVE LAB L505.5075 < 300 ng/mL OPIATES Normal NEGATIVE LAB L505.5085 < 25 ng/mL PCP Normal NEGATIVE LAB L505.5095 < 50 High ng/mL THC POSITIVE Performed By: #### L505.5000 #### [facility] [address] [place], [address] PROTEIN+CREATININE Collected: Status: F Source: [facility],URINE 07/02/2018 2:10 PM [facility] REPOSITORY TYPE CODE TESTS RESULT OUT OF RANGE REFERENCE UNITS LAB L501.1200 NO RANGE EST. mg/dL Normal UR CREAT 190.00 LAB L501.1930 <11.9 mg/dL High 17.2 PROTEIN,UR.R AN. LAB L501.1940 0-200 mg/g CRE Normal PROT:CRE 91 RATIO Performed By: #### L501.0900, L8200.1999, M100.0650 #### [facility] [address] [place], [address] CT/NG [facility] BY PCR Collected: 07/02/2018 Status: F Source: [place] 2:10 PM [facility] REPOSITORY TYPE CODE TESTS RESULT OUT OF RANGE REFERENCE UNITS LAB L8200.2100 Negative Normal Chlam Negative Trac PCR LAB L8200.2200 Negative Normal NG by Negative PCR Performed By: #### L501.0900, L8200.1999, M100.0650 #### [facility] [address] [place], [address] Observed: 07/02/2018 Status: F Source: BELLE CULTURE, URINE 2:10 PM [facility] REPOSITORY Urine Culture ORGANISM 1: Presumptive E. coli [place] Count >100,000 Presumptive E. coli: REACTION Amoxacillin/Clavulanic Acid $ >=32 R Ampicillin $ >=32 R Ampicillin/Sulbactam $ >=32 R Cefazolin $ 16 I Cefepime $ <=1 S Ceftriaxone $ <=1 S Ciprofloxacin $ <=0.25 S ESBL - Ertapenim $$$ <=0.5 S Gentamicin $ <=1 S Imipenem *NF <=0.25 S Levofloxacin $ <=0.12 S Nitrofurantoin $ 32 S Piperacillin/Tazobactam $$ <=4 S Tobramycin $ <=1 S Trimethoprim/Sulfametho $ <=20 S (NF) indicates non-formulary drug at [facility]. Approval by Infectious Disease Specialist required before non-formulary drugs may be ordered and/or dispensed. Performed By: #### L501.0900, L8200.2000, M100.0650 #### [facility] [address] [place], [address] CBC W/DIFF, AUTOMATED Collected: 07/02/2018 Status: F Source: BELLE 2:07 PM [facility] REPOSITORY TYPE CODE TESTS RESULT OUT OF RANGE REFERENCE UNITS LAB L100.1000 4.4-11.0 K/mm3 Normal WBC 6.7 LAB L100.1200 4.2-5.4 M/mm3 Low RBC 3.99 LAB L100.1300 12.0-15.0 g/dl Low HGB 11.7 LAB L100.1400 37-47 % Low HCT 35.4 LAB L100.1500 81-99 fL Normal MCV 88.7 LAB L100.1600 27.0-32.0 pg Normal MCH 29.3 LAB L100.1700 32-36 g/gl Normal MCHC 33.1 LAB L100.1810 11.6-14.6 % Normal RDW CV 14.4 LAB L100.1820 35.1-43.9 fl High RDW SD 46.6 LAB L100.1900 150-450 K/mm3 Normal PLT 259 LAB L100.2000 6.2-12.0 fl Normal MPV 10.2 LAB L100.2100 47-70 % Normal NEUT% 68.5 LAB L100.2200 19-41 % Normal LY% 26.4 LAB L100.2300 0-10 % Normal MONO% 4.2 LAB L100.2400 0-5 % Normal EO% 0.6 LAB L100.2500 0-1 % Normal BASO% 0.0 LAB L100.2550 0.0-0.9 % Normal IM GRAN % 0.300 Result Comment: IG% - Immature Granulocytes (promyelocytes, myelocytes and metamyelocytes) > 1% indicates that a LEFT SHIFT is Present. LAB L100.2620 2.0-7.7 X10 3/uL Normal Absolute Neut 4.6 LAB L100.2720 0.83-4.51 X10 3/ul Normal Absolute Lymph 1.77 Performed By: #### L100.0100 #### [facility] [address], [place], [id number] HEMOGLOBIN A1C Collected: 07/02/2018 Status: F Source: BEL[place] 2:07 PM [facility] REPOSITORY TYPE CODE TESTS RESULT OUT OF RANGE REFERENCE UNITS LAB L501.9985 4.2-6.3 % Normal HGB A1C 5.6 Performed By: #### L501.9985 #### [facility] [address], [place], [id number] TYPE AND SCREEN Collected: 07/02/2018 Status: F Source: BEL[place] 2:07 [facility] REPOSITORY Order Comment: Reason for Type AND Screen/Red Cells: TYPE CODE TESTS RESULT OUT OF RANGE REFERENCE UNITS LAB B10.0800 O Normal BLOOD TYPE GEL POSITIVE LAB B100.4000 Normal Antibody NEGATIVE Screen Performed By: #### B101.7450 #### [facility] [address], [place], [id number] COMPREHENSIVE METABOLIC Collected: 07/02/2018 Status: F Source: [facility] 2:07 PM [facility] REPOSITORY TYPE CODE TESTS RESULT OUT OF RANGE REFERENCE UNITS LAB L501.0100 74-106 mg/dL Normal GLU 87 Result Comment: Please note revised GLUCOSE reference range effective 2017. LAB L501.1000 7-18 mg/dL Low BUN 6 LAB L501.1100 0.55-1.02 mg/dL Normal CREAT,SERUM 0.58 Result Comment: The validity of the calculated GFR AND GFRAA in patients over 70 years has not been determined. Clinical correlation is essential. LAB L501.1110 >60 mL/min Normal EST GFR 141 Result Comment: Non- GFR Calc LAB L501.1115 >60 mL/min Normal EST GFR - AA 170 Result Comment: GFR Calc LAB L501.1300 10-20 RATIO Normal BUN/CRE 10.3 LAB L501.1500 6.4-8.2 g/dL T Normal PROT 7.5 LAB L501.1800 3.2-5.0 g/dL Normal ALB 3.5 LAB L501.1950 2.2-4.2 g/dL Normal GLOB 4.0 LAB L501.2000 0.9-2.4 RATIO Normal A/G 0.9 LAB L501.2200 8.5-10.1 mg/dL CA Normal 8.9 LAB L501.4100 15-37 U/L Low AST 12 LAB L501.4305 45-117 U/L Normal ALK P 77 LAB L501.4405 13-56 U/L Normal ALT 15 LAB L501.4600 0.20-1.00 mg/dL T Normal BILI 0.20 LAB L501.5300 136-145 mmol/L NA Normal 140 LAB L501.5600 3.5-5.1 mmol/L K Normal 3.7 LAB L501.5900 98-107 mmol/L CL Normal 105 LAB L501.6100 21.0-32.0 mmol/L Normal CO2 26.0 LAB L501.6200 5-15 Normal GAP 9 Performed By: #### L500.4050, L501.9520, L506.0400 #### [facility] [address] [place], [address] THYROID STIM HORMONE Collected: 07/02/2018 Status: F Source: NEGRITA (TSH) 2:07 PM [facility] REPOSITORY TYPE CODE TESTS RESULT OUT OF RANGE REFERENCE UNITS LAB L501.9520 0.358-3.74 uIU/mL High TSH 72.80 Performed By: #### L500.4050, L501.9520, L506.0400 #### [facility] [place] [id number] T4 FREE DIRECT Collected: 07/02/2018 Status: F Source: BELLE 2:07 PM [facility] REPOSITORY TYPE CODE TESTS RESULT OUT OF REFERENCE UNITS RANGE LAB L506.0400 0.76-1.46 ng/dL Low T4 FREE 0.46 DIRECT Performed By: #### L500.4050, L501.9520, L506.0400 #### [facility] [address] [place], [place] [id number] RUBELLA IGG Collected: 07/02/2018 Status: F Source: BELLE 2:07 [facility] REPOSITORY TYPE CODE TESTS RESULT OUT OF RANGE REFERENCE UNITS LAB L509.4000 IU/mL Normal Rubella IgG 24.9 Result Comment: Antibody results Interpretation of Immune Status < 5 IU/ml Presumed Non-immune 5 - < 10 IU/ml Equivocal > or = 10 IU/ml Presumed Immune Performed By: #### L509.4000, L3890.6005 #### [place] [id number] #### L3100.0390, L3280.0100 #### [facility] (refer to report for specific site) refer to report for address and phone number HIV - [facility] Collected: 07/02/2018 Status: F Source: [place] 2:07 PM [facility] REPOSITORY TYPE CODE TESTS RESULT OUT OF RANGE REFERENCE UNITS LAB L3890.6005 Nonreactive Normal HIV - [facility] Non-Reactive Performed By: #### L509.4000, L3890.6005 #### [facility] [address] [place], [place] [id number] #### L3100.0390, L3280.0100 #### [facility] (refer to report for specific site) refer to report for address and phone number HEPATITIS B SURFACE Collected: 07/02/2018 Status: F Source: [place] AG 2:07 PM [facility] REPOSITORY TYPE CODE TESTS RESULT OUT OF RANGE REFERENCE UNITS LAB L3100.0400 Negative Normal HB Negative SURF AG Result Comment: Performed at: - [facility] [address] [place], [place] [id number] Assistant Infant Teacher: Marie Sutherland MD, Phone: [phone] Performed at: - [facility] [id number] Assistant Infant Teacher: Zohaib Mo PhD, Phone: [phone] Performed By: #### L509.4000, L3890.6005 #### [facility] [place], [address] #### L3100.0390, L3280.0100 #### [facility] (refer to report for specific site) refer to report for address and phone number CYSTIC FIBROSIS PROF Collected: 07/02/2018 Status: F Source: [place] 2:07 PM [facility] REPOSITORY TYPE CODE TESTS RESULT OUT OF RANGE REFERENCE UNITS LAB L3280.0200 . Normal CF, SCREEN Comment: Result Comment: RESULTS: Negative for 32 mutations analyzed INTERPRETATION: This individual is negative for the mutations analyzed. This negative result may need further interpretation depending on the clinical indication. This result reduces but does not eliminate the risk to be a CF carrier. COMMENTS: The detection rate varies with ethnicity and is listed below. The presence of an undetected mutation in the CF gene cannot be ruled out. In the absence of family history, the remaining risk that a person with a negative result could have at least one CF mutation is listed in the table. If there is a family history of CF, these risk figures do not apply. As detailed information regarding this individual's family history would permit a more accurate assessment of this individual's risk to be a carrier of cystic fibrosis, please contact [facility] at for a revised report. Mutation Detection Detection rates are based on mutation Rates among Ethnic frequencies in patients affected with Groups cystic fibrosis. Among individuals with an atypical or mild presentation (e.g. congenital absence of the vas deferens, pancreatitis) detection rates may vary from those provided here: Carrier risk reduction when no family history Detection Ethnicity Rate Ashkenazi 10/23 to 97% Pentecostalism 10/22 to 90% (non-) -[place]i to 69% 46 to 73% to 55% This interpretation is based on the clinical and family relationship information provided and the current understanding of the molecular genetics of this condition. MUTATIONS ANALYZED: G85E V520F W5191V 2183AA to G R117H G542X P3378G 2184delA R334W S549N 394delTT 2789+5G to A R347H S549R 621+1G to T 3120+1G to A R347P G551D 711+1G to T 3659delC A455E R553X 1078delT 3849+10kbC to T GwazuF068 R560T 1717-1G to A 3876delA EawgtR884 G2961A 1898+1G to A 3905insT METHODS/LIMITATIONS: DNA is isolated from the sample and tested for the 32 CF mutations on the [place] Array Platform ([employer]). Regions of the CFTR gene are amplified enzymatically and subjected to a solution-phase multiplex allele-specific primer extension with subsequent hybridization to a bead array and fluorescence detection. Polymorphisms F508C, I506V and I507V are included in this panel to rule out false positive [id number] homozygotes. Reflex testing of 5T is included in the panel for R117H interpretation. False positive or negative results may occur for reasons that include genetic variants, blood transfusions, bone marrow transplantation, erroneous representation of family relationships or contamination of a sample with maternal cells. REFERENCES: 1. Updates on Carrier Screening for Cystic Fibrosis. (2011) Am J Ob Gynecol 117(4):4680-6719 2. Moiz, et al. (2004) Renetta Med 6:387-91 3. Juan Luis, et al. (2002) [place] Med 4:379-391 4. Preconception and carrier screening for cystic fibrosis: (2001)ACOG.ACMG publication Results Released By: Bev Kirk, Ph.D., Public Health Assistant Released By: Bev Kirk, Ph.D., Director LAB L3280.0400 . Normal COMMENT Comment Result Comment: The assay provides information intended to be used for carrier screening in adults of reproductive age, as an aid in screening, and as a confirmatory test for another medically established diagnosis in newborns and children. The test is not indicated for use in diagnostic testing, pre-implantation screening, or for any stand-alone diagnostic purposes without confirmation by another medically established diagnostic product or procedure. Performed By: #### L509.4000, L3890.6005 #### [facility] [address] [place], [address] #### L3100.0390, L3280.0100 #### [facility] (refer to report for specific site) refer to report for address and phone number RAPID PLASMIN REAGIN Collected: 07/02/2018 Status: F Source: BELLE (RPR) 2:07 PM [facility] REPOSITORY TYPE CODE TESTS RESULT OUT OF REFERENCE UNITS RANGE LAB L700.5000 NONREACTIVE NONREACTIVE Normal RPR Performed By: #### L700.5000 #### [facility] [address] [place], [address] EMERGENCY DEPARTMENT Observed: 05/22/2018 Status: F Source: BELLE SUMMARY 8:32 PM [facility] REPOSITORY [facility] Medical Records Department [address] [place] [address] Emergency Department Summary 05/22/18 1812 MR#: [id number] Acct: [id number] Name: SABRA MONTALVO Rep #: [id number] : 2000 17 From: Oumar Kern PCP: Care Physician, No Primary Status: REG ER - ER Visit Summary Date of Service: 05/22/18 Chief Complaint: Pelvic pain History of Present Illness: The patient is a 17 F 2 day history lower pelvic cramping. Home test positive a week ago. Abnormal menstrual periods, last menstrual period was January of this year. POLICE DETECTIVE is in [place]. She has appointment upcoming week. She states she called her CLINICAL CYTOGENETICS DIRECTOR today was told in the ED for workup with ultrasound. She takes vitamins. Denies any vaginal bleeding or discharge. Denies urinary symptoms. . History of thyroidectomy. States diabetic history. Takes no medications except for prenatals currently. Physical Examination: General: Alert and oriented 3, no acute distress HEENT: Normocephalic, atraumatic. Moist mucosa membranes Neck: supple, nontender. Cardiovascular: Regular rate and rhythm, no murmurs Respiratory: Normal breath sounds, symmetric, no distress Abdomen: Soft, nontender, nondistended Extremities: Nontender, no edema, pulses intact 4 Neuro: no focal neurological deficits. Test Results: Urine 100 leukocytes, WBCs 10-25. Urine culture pending. HCG 29,377. Ultrasound notes intrauterine 6 weeks and 0 days. Emergency Department Course and Treatment: Patient no vaginal bleeding or clots. Complains of cramping. She was given one [place]. Workup initiated hCG is 29,000. Ultrasound obtained intrauterine at 6 weeks. Urine did note signs of infections culture sent. With her being will be started on Macrobid. She will keep her follow-up with her OB. Smoking cessation discussed. Use Tylenol as needed. Treatment Plan: [] Disposition: Discharge Impression: 1. First trimester intrauterine 2. UTI in This note was generated with [employer] dictation software. It may contain incorrect words, spelling, and punctuation that were not noted in review of the chart prior to signing ED Disposition - Plan for ED Patient: Disposition: Home or Assisted Living Chief Complaint: Abd Pain Diagnosis: First trimester , UTI in Instructions: : Your First Trimester Changes, Understanding Urinary Tract Infections (UTIs) Prescriptions: Nitrofurantoin Macrocrystals [Macrobid] 100 mg PO Q12 #10 capsule Referrals: Care Physician,No Primary [Primary Care Provider] - Additional Instructions: Stop smoking. Continue prenatals. Take antibiotic as prescribed. Keep follow-up with your POLICE DETECTIVE. What to do if you have Problems For any increased pain, shortness of breath, bleeding, nausea or vomiting, chest pain, or any unexpected problems, contact your Primary Care Provider. Call [facility] ([phone]) or report to the closest Emergency Room. Call 911 if necessary. 05/22/182031 <Electronically signed by Oumar Kern> Date Oumar Kern Cosigner Signature (If Indicated): Date CC: No Primary Care Physician URINALYSIS, COMPLETE Collected: 05/22/2018 Status: F Source: [place] 6:30 PM [facility] REPOSITORY Order Comment: Order Date: 05/22/18 How was Urine Obtained? CLEAN CATCH TYPE CODE TESTS RESULT OUT OF RANGE REFERENCE UNITS LAB L400.3000 Yellow COLOR Normal Yellow LAB L400.3050 Clear Normal CLARITY Cloudy LAB L400.3200 Normal mg/dl Normal GLUCOSE, UR Normal LAB L400.3300 Negative mg/dL Normal BILIRUBIN URINE Negative LAB L400.3400 Negative mg/dl High 5 KETONE UR LAB L400.3465 1.002-1.030 Normal SP.GR. DIPSTX 1.015 LAB L400.3550 5.0 - 8.0 pH UR Normal 7.0 LAB L400.3600 Negative mg/dl High PROT 15 DIPSTX LAB L400.3700 Normal mg/dl High 4 UROBILI LAB L400.3750 Negative Normal NITRITE UR Negative LAB L400.3780 Negative /ul High 10 OCCULT BLOOD-UR LAB L400.3800 Negative /ul High LEUK ESTERASE 100 LAB L400.4050 0-5 /hpf WBC Normal 10-25 SEEN LAB L400.4100 0-5 /hpf Normal RBC-UA 0-5 SEEN LAB L400.4150 5-10 /hpf SQUAM Normal EPI 0-5 SEEN LAB L400.4300 None Seen /hpf 1+ Normal BACTERIA LAB L400.4350 <or=2+ /hpf 0 Normal MUCUS, URINE SEEN LAB L400.4900 3+ Normal AMORPHOUS Performed By: #### L400.0001 #### [facility] [address] [place], [place], [address] Observed: 05/22/2018 Status: F Source: [place] CULTURE, URINE 6:30 PM [facility] REPOSITORY Order Date: 05/22/18 Urine Culture ORGANISM 1: Presumptive E. coli [place] Count >100,000 Presumptive E. coli: REACTION Amoxacillin/Clavulanic Acid $ >=32 R Ampicillin $ >=32 R Ampicillin/Sulbactam $ 16 I Cefazolin $ 16 I Cefepime $ <=1 S Ceftriaxone $ <=1 S Ciprofloxacin $ <=0.25 S ESBL - Ertapenim $$$ <=0.5 S Gentamicin $ <=1 S Imipenem *NF <=0.25 S Levofloxacin $ <=0.12 S Nitrofurantoin $ 32 S Piperacillin/Tazobactam $$ <=4 S Tobramycin $ <=1 S Trimethoprim/Sulfametho $ <=20 S (NF) indicates non-formulary drug at [facility]. Approval by Infectious Disease Specialist required before non-formulary drugs may be ordered and/or dispensed. Performed By: #### M100.0650 #### [facility] [address] [facility] [place], [address] HCG TITER QUANT., Collected: 05/22/2018 Status: F Source: [place] SERUM 6:15 PM [facility] REPOSITORY TYPE CODE TESTS RESULT OUT OF RANGE REFERENCE UNITS LAB L700.8000 <9 non-preg mIU/mL High HCG 76997 QUANT. Performed By: #### L700.8000 #### [facility] [address] [place], [address] TRANSVAGINAL W/PREG US Observed: 05/22/2018 Status: F Source: BELLE 6:09 PM [facility] REPOSITORY [facility] Imaging Services [address] [place] [address] Transvaginal w/Preg US MR#: [id number] Acct: [id number] Name: SABRA MONTALVO Rep #: [id number] : 2000 F 17 From: Reny Walker MD PCP: Care Physician, No Primary Status: DEP ER Study: Transvaginal w/Preg US Date of Exam: 05/22/18 Exam# [id number] Ordering Dr: Oumar Villa DO STUDY: FIRST TRIMESTER OBSTETRICAL ULTRASOUND REASON FOR EXAM: Female, 17 years old. and pain LMP: April 06, 2018 TECHNIQUE: Transverse and longitudinal imaging of the pelvis was obtained transvaginally using real-time ultrasound. PRIOR STUDY: None. FINDINGS: There is visualization of a single gestational sac in a normal intrauterine position. The mean sac diameter (MSD) measures 15.8 mm, indicating an estimated gestational age (EGA) of 6 weeks, 3 days. The gestational sac shape is within normal limits. There is a visualized yolk sac. The yolk sac measures 3.1 mm. There is visualization of an embryonic pole. The crown-rump length (CRL) measures 3.3 mm, indicating an estimated gestational age (EGA) of 6 weeks, 0 days. There is demonstrated cardiac activity with a heart rate of 97 bpm. The estimated gestation age (EGA) by LMP is 6 weeks, 4 days. The estimated date of delivery (GUIDO) by LMP is January 11, 2019. The estimated gestation age (EGA) by US is 6 weeks, 2 days. The estimated date of delivery (GUIDO) by US is January 13, 2019. The uterus measures 9.0 x 5.0 x 5.6 cm. There is no demonstrated uterine fibroid. The cervix is closed. The right ovary was not visualized. There is no visualized right adnexal mass or complex lesion. The left ovary measures 2.7 x 1.5 x 3.2 cm. There is no left ovarian cyst. There is no visualized left adnexal mass or complex lesion. There is minimal fluid in the cul de sac. US/Transvaginal w/Preg US IMPRESSION: There is an intrauterine with estimated age of 6 weeks 2 days by the current ultrasound. Heart rate was measured at 97 bpm, likely within normal limits at the small size. There is minimal fluid in the pelvis. There are no abnormal masses seen in the adnexal regions. Electronically Signed: Reny Walker MD at 20:58 EDT Tel Direct: [phone], Service support , CC: No Primary Care Physician; Oumar Villa Environmental Permitting Specialist: Signed DISCHARGE INSTRUCTION Observed: 04/27/2018 Status: F Source: NEGRITA 3:02 PM [facility] REPOSITORY [facility] Medical Records Department [address] [place] [address] Discharge Instruction 04/27/18 1501 MR#: [id number] Acct: [id number] Name: SABRA MONTALVO Rep #: [id number] : 2000 17 From: Ander Mckeon MD PCP: Care Physician, No Primary Status: REG ER ED Disposition - Plan for ED Patient: Disposition: Home or Assisted Living Chief Complaint: Headache Instructions: ED Cephalgia Unspecified Prescriptions: Naproxen [Naprosyn] 500 mg PO BID PRN #20 tab Referrals: Care Physician,No Primary [Primary Care Provider] - What to do if you have Problems For any increased pain, shortness of breath, bleeding, nausea or vomiting, chest pain, or any unexpected problems, contact your Primary Care Provider. Call [facility] ([phone]) or report to the closest Emergency Room. Call 911 if necessary. 04/27/18 1502 <Electronically signed by Ander Mckeon MD> Date Ander Mckeon MD Cosigner Signature (If Indicated): Date CC: No Primary Care Physician EMERGENCY DEPARTMENT Observed: 04/27/2018 Status: F Source: NEGRITA SUMMARY 3:01 PM [facility] REPOSITORY [facility] Medical Records Department [address] [place] [address] Emergency Department Summary 04/27/18 1409 MR#: [id number] Acct: [id number] Name: SABRA MONTALVO Rep #: [id number] : 2000 17 From: Ander Mckeon MD PCP: Jennifer Physician, No Primary Status: REG ER - ER Visit Summary Date of Service: 04/27/18 Chief Complaint: Headache History of Present Illness: The patient is a 17 F who presents with a headache. Been going on for 3 hours. She states it is throbbing in both her bitemporal areas. She has had nausea with vomiting. She states that she is seeing spots. No direct trauma. No history of migraines in the past. She did not take any medications for this today. She does have a history of chronic back pain. Patient was seen at an urgent care today and directed to come to the emergency department for a stroke workup. Physical Examination: Vital signs reviewed. HEENT exam unremarkable. Heart is regular rate and rhythm without murmurs. Lungs are clear to auscultation. Abdomen is soft and nontender. Extremities reveal no edema. Skin exam normal. Neurologic exam normal. Test Results: HCG negative Emergency Department Course and Treatment: Patient received Compazine and Benadryl and IV fluids. She feels much better. This is likely a primary headache. She has no focal neurologic deficits. I do not feel that imaging is necessary at this time. I will give her naproxen for pain at home. She will follow-up with her PCP Treatment Plan: [] Disposition: Discharge Impression: Headache This note was generated with [employer] dictation software. It may contain incorrect words, spelling, and punctuation that were not noted in review of the chart prior to signing ED Disposition - Plan for ED Patient: Chief Complaint: Headache Referrals: Care Physician,No Primary [Primary Care Provider] - What to do if you have Problems For any increased pain, shortness of breath, bleeding, nausea or vomiting, chest pain, or any unexpected problems, contact your Primary Care Provider. Call [facility] ([phone]) or report to the closest Emergency Room. Call 911 if necessary. 04/27/18 1501 <Electronically signed by Ander Mckeon MD> Date Ander Mckeon MD Cosigner Signature (If Indicated): Date CC: No Primary Care Physician ,SERUM,HCG QUALI. Collected: Status: F Source: NEGRITA 04/27/2018 2:02 PM [facility] REPOSITORY Order Comment: Date of Last Menstrual Period? 04/27/18 TYPE CODE TESTS RESULT OUT OF REFERENCE UNITS RANGE LAB L700.6700 =>Qualitative mIU/mL Normal HCG Qual < 1 triggr LAB L700.7000 0-9 Nonpreg Negative Normal HCGSQUAL NEGATIVE Performed By: #### L700.6800 #### [facility] [address] [place], [address] PROGRESS Observed: 04/27/2018 Status: COMPLETED Source: [place]ATUR 1:07 PM [facility] RE[facility]IT[facility] HNO ID: [id number] Author: Wilmar Haq Service: (none) Author Type: Physician Type: Progress Notes Filed: 04/27/2018 1:39 PM Note Text: Patient presents with: Vomiting: AND headache X 2.5 hrs HPI: Feeling abrupt onset of headache today. The headache was preceded by red and black spots in her outer paula of vision. She then got nausea and started to vomit. She continues to have the vision change and nausea. She has not had headaches like this before. She normally does not get headaches. She has never had vision change with a headache. Positive symptoms: headache (bilateral temples), right facial numbness, photophobia, feels like she might pass out Negative symptoms: Sore throat, Fever, Diarrhea, weakness, palpitations, chest pain, shortness of breath OTC: none. No family history of migraines, stroke, or aneurysm. MEDICATIONS: Reports to EMS she takes synthroid s/p thyroidectomy No current outpatient prescriptions on file. No current facility-administered medications for this visit. ALLERGIES: ALLERGIES No Known Allergies VITALS: BP 120/78 Pulse 76 Temp 36.1 ?C (96.9 ?F) (Tympanic) Resp 18 Wt 74.8 kg (165 lb) LMP 02/24/2018 (Approximate) PHYSICAL EXAM: GEN: Alert, mildly ill appearing HEENT: PERRL (3mm), EOMI, MMM NECK: supple, no lymphadenopathy, no thyromegaly HEART: regular rate, regular rhythm, no murmurs LUNGS: clear to auscultation, no wheezes or crackles, no increased WOB ABD: soft, non-distended, no masses palpated, non-tender EXT: no clubbing, no cyanosis, no edema NEURO: Alert and oriented to person, place, and time. CN II-XII intact. DTR 2+/4. Normal strength. Normal gait. No tremor. ASSESSMENT/PLAN: 1. Headache, unspecified headache type - ICD9: 784.0, ICD10: R51 (primary diagnosis) 2. Vision changes - ICD9: 368.9, ICD10: H53.9 3. Numbness and tingling of right face - ICD9: 782.0, ICD10: R20.0, R20.2 4. Dizziness - ICD9: 780.4, ICD10: R42 Transported to ED by EMS. Wilmar Haq MD CNOV Observed: 04/27/2018 Status: COMPLETED Source: [place] 1:00 PM [facility] REPOSITORY Office Visit (WSTR) SABRA MONTALVO ([id number]) 2000 F Date Time Provider Department 04/27/18 1:00 PM WILMAR HAQ [facility] During your visit today, we recorded the following information about you: Temperature Pulse Respiration Blood pressure 96.9 degrees 76/minute 18/minute 120/78 Weight Last Period 74.8 kg 02/24/18 Wilmar Haq MD 04/27/2018 1:39 PM Signed Patient presents with: Vomiting: AND headache X 2.5 hrs HPI: Feeling abrupt onset of headache today. The headache was preceded by red and black spots in her outer [place] of vision. She then got nausea and started to vomit. She continues to have the vision change and nausea. She has not had headaches like this before. She normally does not get headaches. She has never had vision change with a headache. Positive symptoms: headache (bilateral temples), right facial numbness, photophobia, feels like she might pass out Negative symptoms: Sore throat, Fever, Diarrhea, weakness, palpitations, chest pain, shortness of breath OTC: none. No family history of migraines, stroke, or aneurysm. MEDICATIONS: Reports to EMS she takes synthroid s/p thyroidectomy No current outpatient prescriptions on file. No current facility-administered medications for this visit. ALLERGIES: ALLERGIES No Known Allergies VITALS: BP 120/78 Pulse 76 Temp 36.1 ?C (96.9 ?F) (Tympanic) Resp 18 Wt 74.8 kg (165 lb) LMP 02/24/2018 (Approximate) PHYSICAL EXAM: GEN: Alert, mildly ill appearing HEENT: PERRL (3mm), EOMI, MMM NECK: supple, no lymphadenopathy, no thyromegaly HEART: regular rate, regular rhythm, no murmurs LUNGS: clear to auscultation, no wheezes or crackles, no increased WOB ABD: soft, non-distended, no masses palpated, non-tender EXT: no clubbing, no cyanosis, no edema NEURO: Alert and oriented to person, place, and time. CN II-XII intact. DTR 2+/4. Normal strength. Normal gait. No tremor. ASSESSMENT/PLAN: 1. Headache, unspecified headache type - ICD9: 784.0, ICD10: R51 (primary diagnosis) 2. Vision changes - ICD9: 368.9, ICD10: H53.9 3. Numbness and tingling of right face - ICD9: 782.0, ICD10: R20.0, R20.2 4. Dizziness - ICD9: 780.4, ICD10: R42 Transported to ED by EMS. Wilmar Haq MD Referring Provider: SELF [200] Allergies As of Date: 04/27/2018 (No Known Allergies) Date Reviewed: 04/27/2018 Reviewed by: Cinda Beth LPN - Fully Assessed Reason for Visit: Vomiting [120] Cmt: AND headache X 2.5 hrs Primary Visit Diagnosis:Headache, unspecified headache type [R51] Other Visit Diagnoses:Vision changes [H53.9] Numbness and tingling of right face [R20.0, R20.2] Dizziness [R42] Problem List As Of Date 04/27/2018 Noted Resolved [Z34.90] INVALID FOR* Pes planus [M21.40] INVALID FOR* Medications Discontinued During This Encounter Ansbjula-Ih-Iqx-Fe-FA (PREN* 0 04/04/2014 04/27/2018 Class: Med Update Route: ORAL Sig: Take 1 tablet by mouth once daily. Patient not taking: Reported on 04/27/2018 Disc: Course of therapy completed Letter Text Sabra Montalvo Wilmar Haq MD Urgent Care [address] [facility] [address] Dept: [phone] Date this form was last completed: April 27, 2018 Reason for Emergency Transport: Headache, right sided facial numbness, vision change, feeling faint Name: Sabra Montalvo [facility] Number : [id number] Age: [age] year old : 2000 Address: [address] [place] [address] Dr Jonny lloyd [facility] [address] (home) Primary care physician: No Pcp NO PCP Current Vital Signs: BP 120/78 Pulse 76 Temp 36.1 ?C (96.9 ?F) (Tympanic) Resp 18 Wt 74.8 kg (165 lb) LMP 02/24/2018 (Approximate) Allergies: Patient has no known allergies. Current Medications: Current Outpatient Prescriptions: Ewqomiiz-Vv-Lqr-Fe-FA ( VITAMIN) tab Take 1 tablet by mouth once daily. (Patient not taking: Reported on 04/27/2018 ) No current facility-administered medications for this visit. Problem List: ACTIVE PROBLEM LIST Pes Planus Past Surgical History PAST SURGICAL HISTORY Procedure Laterality Date - NONE Insurance information: Payor: [place] / Plan: [place] [employer] [place] / Product Type: Medicaid / Emergency Contact: Extended Emergency Contact Information Primary Emergency Contact: Charis Montalvo Mobile Relation: Visitor Services Representative Encounter Status:Closed by WILMAR HAQ MD on 04/27/18 EMERGENCY DEPARTMENT Observed: 01/25/2018 Status: F Source: BELLE SUMMARY 12:30 AM [facility] REPOSITORY [facility] Medical Records Department [address] [place] [address] Emergency Department Summary 01/24/18 2213 MR#: [id number] Acct: [id number] Name: SABRA MONTALVO Rep #: [id number] : 2000 17 From: Jose Antonio Everett MD PCP: Jennifer Physician, No Primary Status: DEP ER - ER Visit Summary Date of Service: 01/24/18 Chief Complaint: Low back pain History of Present Illness: The patient is a 17 F past medical history of noncemented diabetes. She states openly that she is noncompliant is not taking any medications and does not check her blood sugars. States that she has had low back pain now for approximately 3 weeks worse with movement. Denies any fall or trauma. Denies any fever or dysuria. She has never had back surgery. She denies any redness or swelling to her low back. No weakness or numbness in her lower extremities no bowel or bladder incontinence. No prior history. Physical Examination: Well-appearing young female. Vital signs are stable afebrile. She sitting upright in bed no distress. H EENT exam unremarkable. Neck nontender no lymphadenopathy. Lungs clear to auscultation bilaterally. Heart regular rhythm no murmur. Abdomen soft nontender nondistended normal bowel sounds no peritoneal signs. She is moving all 4 extremities. Neurovascular intact. No cauda equina. Normal medial thigh sensation. Normal motor strength in both lower extremities with 5 out of 5 motor strength with dorsi plantarflexion. Full range of motion intact. Normal sensation. Upper extremities are normal neurologically also. Her back exam there is no reproducible tenderness. No signs of trauma. No redness or warmth. No spine abnormalities. Over her lower lumbar coccyx area is where the pain is but there is no reproducible tenderness. There is no signs of a pilonidal cyst or abscess. Test Results: None Emergency Department Course and Treatment: Patient be placed on Naprosyn for pain. She will be referred to Dr. Blevins if she is not improving. We will check a BG T prior to discharge. Treatment Plan: Naprosyn for pain. Disposition: Discharge Impression: Musculoskeletal low back pain This note was generated with [employer] dictation software. It may contain incorrect words, spelling, and punctuation that were not noted in review of the chart prior to signing ED Disposition - Plan for ED Patient: Chief Complaint: Back Referrals: Care Physician,No Primary [Primary Care Provider] - What to do if you have Problems For any increased pain, shortness of breath, bleeding, nausea or vomiting, chest pain, or any unexpected problems, contact your Primary Care Provider. Call [facility] ([phone]) or report to the closest Emergency Room. Call 911 if necessary. 01/25/1829 <Electronically signed by Jose Antonio Everett MD> Date Jose Antonio Everett MD Cosigner Signature (If Indicated): Date CC: No Primary Care Physician DISCHARGE INSTRUCTION Observed: 01/25/2018 Status: F Source: NEGR[place] 12:30 AM [facility] REPOSITORY [facility] Medical Records Department [address] [place] [address] Discharge Instruction 01/24/182216 MR#: [id number] Acct: [id number] Name: SABRA MONTALVO Rep #: [id number] : 2000 17 From: Jose Antonio Everett MD PCP: Care Physician, No Primary Status: DEP ER ED Disposition - Plan for ED Patient: Disposition: Home or Assisted Living Chief Complaint: Back Instructions: ED Neck Back Pain General Prescriptions: Naproxen [Naprosyn] 500 mg PO BID PRN PRN #20 tab PRN Reason: Pain Referrals: Jose Cruz Robles MD [STAFF PHYSICIAN] - Additional Instructions: Ice and heat to the affected area of the lower back. Naprosyn for medication no more than 2 pills per day. Return if feeling worse weakness or numbness. Otherwise follow- up with Dr. Zander Robles to obtain a new primary care physician. What to do if you have Problems For any increased pain, shortness of breath, bleeding, nausea or vomiting, chest pain, or any unexpected problems, contact your Primary Care Provider. Call [facility] ([phone]) or report to the closest Emergency Room. Call 911 if necessary. 01/25/1829 <Electronically signed by Jose Antonio Everett MD> Date Jose Antonio Torres Signature (If Indicated): Date CC: No Primary Care Physician BEDSIDE GLUCOSE Collected: 01/24/2018 Status: F Source: BELLE 10:24 PM [facility] REPOSITORY TYPE CODE TESTS RESULT OUT OF RANGE REFERENCE UNITS LAB L501.080 70-110 mg/dL Normal BEDSIDE GLU 110 Result Comment: MANAGEMENT OF PATIENT CARE PER NURSING PROTOCOL Performed By: #### L501.080 #### [facility] Point of Care [address] [place] [address] CNCO Observed: 12/23/2017 Status: COMPLETED Source: [place] 12:00 AM [facility] REPOSITORY Letter Text [facility], [address], [address] [place] [address] December 23, 2017 RE: Lynda Yu [address] [facility] [address] 2000 Dear Parent/Guardian of Lynda, We have tried to contact you in regards to your child's Need for Routine Physical Our efforts to reach you have been unsuccessful. Please call [phone] to coordinate your child's plan of care. Thank you and we look forward to talking with you. Sincerely, [facility] Pediatrics [facility] Children's ALLERGIES ALLERGIES DATE TYPE / NAME / CODE REACTION SEVERITY SOURCE CODE 09/14/2018 Drug levothyroxine Other Unknown [place] Allergy/41 sodium/[id number](RXNO Community 0890059([facility]) [facility]) Repository 01/24/2018 Drug No Known Unknown [place] Allergy/41 Allergies/[id number](R Community 8262283([facility]) Repository 09/13/2015 DRUG PROPYLTHIOURACIL [place] IN[place]EDI/ Children's 0030256([facility]) Repository 08/24/2015 DRUG METHIMAZOLE pruritis Low [place] IN[place]EDI/41 Children's 9258309([facility] OMED CT) Repository Drug NO KNOWN ALLERGIES [place] Class/4195 [facility] [address]([facility]) Repository ENCOUNTERS ENCOUNTERS ADMIT/DISCHARGE ACCOUNT ADMITTING ENCOUNTER LOCATION SOURCE NUMBER CLASS 09/14/2018 [id number] Ambulatory BMSBuilding:B [place] MS.CF.[facility] Repository 09/14/2018/09/14/20 [id number] Ambulatory [address] Hospital ing:WPOUTRoom Repository : WP013 08/30/2018 [id number] Ambulatory Building:[facility] Repository 2018 [id number] Ambulatory [facility] ing:PAVLAB Repository 08/27/2018/08/27/20 [id number] Ambulatory BMSBuilding:B [place] 18 MS.[facility] Repository 07/30/2018/07/30/20 [id number] Ambulatory BMSBuilding:B [place] 18 MS.[facility] Repository 07/15/2018 [id number] Ambulatory Building:[facility] Repository 07/02/2018 [id number] Ambulatory [facility] ing:LABSPEC Repository 07/02/2018 [id number] Ambulatory [facility] ing:PAVLAB Repository 07/02/2018/07/02/20 [id number] Ambulatory BMSBuilding:B [place] 18 MS.[facility] Repository 05/22/2018/05/22/20 [id number] Emergency [address] ing:ED Repository 04/27/2018/04/27/20 [id number] Emergency [address] Hospital ing:ED Repository 04/27/2018/04/28/20 [id number] Ambulatory [address] Repository 01/24/2018/01/25/20 [id number] Emergency [address] Hospital ing:ED Repository 10/01/2017/10/01/19 [id number] Ambulatory BMSBuilding:B [place] 18 MS.[facility] Repository PAYERS PAYERS ENCOUNTER GUARANTOR PAYER SUBSCRIBER SOURCE 09/14/2018 SABRA D Primary SABRA D [place] [id number] Insurance:PARAMOUNT LAGAMBODOB: Community ANTWAN PERRIN ADVANTAGE [facility] [id number] Number: Repository [address]Uge: 330 [id number] [phone] () Date:4123-15-81YA [address], [place] [address]MG: 09/14/2018 Secondary SABRA D [place] Insurance:CIGNAPolicy LAGAMBODOB: Community Number: [id number] Hospital [id number] Repository Date:6020-61-12UF [address] [place] [address]EC: 09/14/2018 Tertiary NOT GIVENUNK [place] Insurance:SELF PAY [facility] Number: Effective Repository Date:2018-09-14 09/14/2018 SABRA D Primary SABRA D [place] [id number] Insurance:PARAMOUNT LAGAMBODOB: Community ANTWAN PERRIN [facility] [id number] Number: Repository [address]Zne: 330 [id number] [phone] () Date:2357-97-65VO [address] [place] [address]PB: 09/14/2018 Secondary SABRA D [place] Insurance:CIGNAPolicy LAGAMBODOB: Community Number: [id number] Hospital [id number] Repository Date:6863-49-81VQ [address] [address]ON: 09/14/2018 Tertiary NOT GIVENUNK [place] Insurance:SELF PAY [facility] Number: Effective Repository Date:2018-09-14 08/30/2018 SABRA KARLA Primary SABRA KARLA [place] [facility] LAGAMBODOB: Insurance:CIGNAPolicy LAGAMBODOB: [facility] Number: [id number] Repository ANTWAN AYALA [id number] [address] [place] [address] Date: KRZYSZTOF [place], [address]Aye: (330) [place] [address] [phone] (HP) 08/30/2018 Secondary SABRA KARLA [place] [facility] Insurance:PARAMOUNT LAGAMBODOB: Hospital ADVANTAGE [id number] Repository MEDICAIDPolicy 6 [address] Number: [id number] [place], [id number] [place] [address] Date:[address], [place] [address]VB: 2018 SABRA D Primary SABRA D [place] [id number] Insurance:PARAMOUNT LAGAMBODOB: Community [facility] [id number] Number: Repository [address]Hpp: 330 [id number] [phone] (HP) Date:0175-28-97WX [address] [place] [address]BU: 2018 Secondary SABRA D [place] Insurance:CIGNAPolicy LAGAMBODOB: Community Number: [id number] Hospital [id number] Repository Date:3250-16-07LS [address]CVHTNSNW, [place] [address]VN: 2018 Tertiary NOT GIVENUNK [place] Insurance:SELF PAY [facility] Number: Effective Repository Date:2018 2018 SABRA D Primary SABRA D [place] [id number] Insurance:PARAMOUNT LAGAMBODOB: Community [address] DR[address] [facility] [id number] Number: Repository [address]Cwn: 330 [id number] [phone] (HP) Date:4440-04-93YN [address], [place] [address]PB: 2018 Secondary SABRA D [place] Insurance:CIGNAPolicy LAGAMBODOB: Community Number: [id number] Hospital [id number] Repository Date:1876-53-04EL [address]USDWTGMQSBP, [place] [address]FK: 2018 Tertiary NOT GIVENUNK [place] Insurance:SELF PAY [facility] Number: Effective Repository Date:2018 07/30/2018 SABRA D Primary SABRA D [place] [id number] Insurance:PARAMOUNT LAGAMBODOB: [facility] [address] ADVANTAGE [facility] [id number] Number: Repository [address]Zbe: (044) [id number] [phone] (HP) Date:0651-26-51MJ [address], [place] [address]OS: 07/30/2018 Secondary SABRA D [place] Insurance:CIGNAPolicy LAGAMBODOB: Community Number: [id number] Hospital [id number] Repository Date:7418-90-04DD [address]TFDXGNON[address]X, [place] [address]DS: 07/30/2018 Tertiary NOT GIVENUNK [place] Insurance:SELF PAY [facility] Number: Effective Repository Date:2018-07-15 07/15/2018 [facility] SABRA [place] [facility] CSBDOB: Insurance:CIGNAPolicy LAGAMBODOB: [place] [id number] Number: [id number] Repository [place] [id number] [address] [place], [place] Date: KRZYSZTOF [address] [address]Lso: 330) [place] [address] [phone] (HP) 07/15/2018 Secondary SABRA [place] [facility] Insurance:PARAMOUNT LAGAMBODOB: Hospital ADVANTAGE [id number] Repository [facility] [address] Number: [id number] [place] [id number] [place] [address] Date:[address] [address]OV: 07/02/2018 SABRA D Primary SABRA D [place] [id number] Insurance:PARAMOUNT LAGAMBODOB: [facility] [address] ADVANTAGE MCDPolicy [id number] Number: Repository [address]Rlu: (330) [id number] [phone] (HP) Date:1035-14-57XK [address] [place] [address]JM: 07/02/2018 Secondary SABRA D [place] Insurance:CIGNAPolicy LAGAMBODOB: Community Number: [id number] Hospital [id number] Repository Date:9182-99-09BZ [facility] [address]ONJG[place], [place] [address]YB: 07/02/2018 Tertiary NOT GIVENUNK [place] Insurance:SELF PAY [facility] Number: Effective Repository Date:2018-07-02 07/02/2018 SABRA D Primary SABRA D [place] [id number] Insurance:PARAMOUNT LAGAMBODOB: Community ANTWAN PERRIN [facility] [id number] [place] Number: Repository [id number]: ([phone]) [id number] [phone] () Date:2038-16-30VY [facility] [address], [place] [address]JU: 07/02/2018 Secondary SABRA D [place] Insurance:CIGNAPolicy LAGAMBODOB: Community Number: [id number] Hospital [id number] Repository Date:8936-37-78BX [facility] [place], [place] [address]QF: 07/02/2018 Tertiary NOT GIVENUNK [place] Insurance:SELF PAY [facility] Number: Effective Repository Date:2018-07-02 07/02/2018 SABRA D Primary SABRA D [place] [id number] Insurance:PARAMOUNT LAGAMBODOB: Community ANTWAN PERRIN [facility] [id number] Number: Repository [id number]: ([phone]) [id number] [phone] (HP) Date:7284-35-36YK [address], [place] [address]VW: 07/02/2018 Secondary SABRA D [place] Insurance:CIGNAPolicy LAGAMBODOB: Community Number: [id number] Hospital [id number] Repository Date:7170-57-03ZH [address]MC[place]N, [place] [address]CM: 07/02/2018 Tertiary NOT GIVENUNK [place] Insurance:SELF PAY [facility] Effective Repository Date:2018-07-02 05/22/2018 SABRA D Primary SABRA D [place] [id number] Insurance:CIGNAPolicy LAGAMBODOB: Community [address] Number: [id number] [id number] Repository [address]Xjz: ([phone]) Date:9866-01-75WV [phone] () [place]HWM[place]BS[place]X, [place] [address]VI: 05/22/2018 Secondary SABRA D [place] Insurance:PARAMOUNT LAGAMBODOB: Community ADVANTAGE [facility] [id number] Hospital Number: Repository [id number] Date:2460-62-88JT [address] [place] [address]MZ: 05/22/2018 Tertiary NOT GIVENUNK [place] Insurance:SELF PAY [facility] Number: Effective Repository Date:2018-05-22 04/27/2018 SABRA D Primary SABRA D [place] [id number] Insurance:CIGNAPolicy LAGAMBODOB: Community [address] Number: [id number] [id number] Repository [address]Xwl: ([phone]) Date:6099-93-32UX [phone] () [place]00[place]MXB[place]ADIW, [place] [address]TD: 04/27/2018 Secondary SABRA D [place] Insurance:PARAMOUNT LAGAMBODOB: Community [facility] [id number] Hospital Number: Repository [id number] Date:1976-44-31YA [address], [place] [address]EK: 04/27/2018 Tertiary NOT GIVENUNK [place] Insurance:SELF PAY [facility] Number: Effective Repository Date:2018-04-27 01/24/2018 SABRA D Primary AMBAR Negr[place] [id number] Insurance:CIGNAPolicy LAGAMBOUNK [facility] [address] Number: [place], [place] [id number] Repository [address]Ydj: ([phone]) Date:2749-26-31HM [phone] () [place], [place] [address]FA: 01/24/2018 Secondary NOT GIVENUNK [place] Insurance:SELF PAY [facility] Number: Effective Repository Date:2018-01-24 10/01/2017 SABRA Primary NOT GIVENUNK [place] [id number] Insurance:SELF PAY [place] Number: Effective Repository [phone]: ([phone]) Date:2017-10-01 [phone] ()
== END ==
PROVIDERS: Referring Provider Obstetrics & Gynecology; Visit Provider Obstetrics & Gynecology
DX: Z34.90 Encounter for supervision of normal pregnancy, unspecified, unspecified trimester (principal)
CPT/HCPCS: 36415; 85025; 86850; 86900

== ENCOUNTER 2018-09-14 17:35 | Outpatient (CLI) | payer OTHER, MEDICAID, SELFPAY ==
[2018-09-14 18:00] VITALS: BMI 29.9
--- NOTE | 2018-09-14 19:50 | OB.TRI.HP_ITS ---
- Problem List (1) Migraine Status: Acute History of Present Illness Date of Service: 09/14/18 Was patient seen by the physician?: No Reason For Visit: DECREASED FM History of Present Illness: decreased fm and migraines Allergies levothyroxine sodium [From Synthroid] Allergy (Verified 09/14/18 18:01) Other - Pertinent Past Medical History Medical History: Past Medical History (Last Reviewed 08/27/18 @ 12:56 by Fransisca Delarosa) Diabetes Epilepsy Graves disease Surgical History: Past Surgical History (Last Reviewed 08/27/18 @ 12:56 by Fransisca Delarosa) delivery delivered H/O thyroidectomy NST - FHR Rate Baby A Baseline: 150 Impression/Plan decreased fm and migraine- reassuring fhts, evaluated in er [facility]
--- OUTSIDE RECORDS SUMMARY | 2018-12-17 06:00 | XMS RPT_ITS ---
:2000 Author Organization OHIP Support Name Relationship Address Phone CHARIS MONTALVO Unavailable [address] + [place] [address] UE Unavailable Unavailable Unavailable [employer] Unavailable [address] + [place] [address] [facility] Unavailable [address] + [place] [address] [employer] Unavailable [address] + [place] [address] [facility] Unavailable [address] + [place] [address] [facility], CHARIS Unavailable Unavailable + [place] [address] [facility] AMBAR Unavailable Unavailable + [place] [address] [employer] Unavailable [address] + [place] [address] [facility] Unavailable [address] + [place] [address] [facility], CHARIS Unavailable [address] + [place] [address] UE Unavailable Unavailable Unavailable [facility] CHARIS Unavailable [address] + [place] [address] UE Unavailable Unavailable Unavailable [facility] CHARIS Unavailable Unavailable + [place] [address] [facility] AMBAR Unavailable Unavailable + [place] [address] [facility], CHARIS Unavailable [address] + [place] [address] UE Unavailable Unavailable Unavailable [facility], CHARIS Unavailable [address] + [place] [address] UE Unavailable Unavailable Unavailable [place], Charis Unavailable [address] + [place] [address] UE Unavailable Unavailable Unavailable UE Unavailable Unavailable Unavailable UE Unavailable Unavailable Unavailable UE Unavailable Unavailable Unavailable Care Team Providers Name Role Phone ALEXUS SMITH Attending Unavailable EFRAIN ROSAS Attending Unavailable MTANTHONYKATERINE E Referring Unavailable [place]GRID, CRYSTAL Primary Care Unavailable RENY BARRON Attending Unavailable MARCANTHONY, KATERINE E Referring Unavailable INGRID, CRYSTAL Primary Care Unavailable Marcanthony, Katerine Attending Unavailable Marcanthony, Katerine Referring Unavailable Primay Care Physicia, No Primary Care Unavailable Marcanthony, Katerine Attending Unavailable Marcanthony, Katerine Referring Unavailable Primay Care Physicia, No Primary Care Unavailable Marcanthony, Katerine Attending Unavailable Primay Care Physicia, No Referring Unavailable MarcanthonyKaterine Attending Unavailable Marcanthony, Katerine Referring Unavailable Marcanthony, Katerine Attending Unavailable Marcanthony, Katerine Referring Unavailable Primay Care Physicia, No Primary Care Unavailable Marcanthony, Katerine Attending Unavailable Primay Care Physicia, No Referring Unavailable Primay Care Physicia, No Primary Care Unavailable Jose Miguel Villay Attending Unavailable Daisy, Oumar Referring Unavailable Primay Care Physicia, No Primary Care Unavailable Ander Mckeon Attending Unavailable Primay Care Physicia, No Primary Care Unavailable Jose Antonio Everett Attending Unavailable Primay Care Physicia, No Primary Care Unavailable USMAN GERBER Attending Unavailable MarcanthonyKaterine Attending Unavailable MarcanthonyKaterine Referring Unavailable Primay Care Physicia, No Primary Care Unavailable MtanthKaterine crystal Consulting Unavailable MarcanthKaterine crystal Attending Unavailable Primay Care Physicia, No Referring Unavailable PROBLEMS PROBLEMS DATE TYPE CONDITION / CODE ATTENDING STATUS SOURCE 2018 Unknown O09.299 - Pricila, Active [place] Supervision of [facility] with Hospital other [facility] [place] Repository reproductive or obstetric history, unspecified trimester / O09.299(ICD-10) 2018 Unknown Z82.79 - Family Marcanthmarah, Active [place] history of other [facility] malformations, Repository deformations and chromosomal abnormalities / Z82.79(ICD-10) 2018 Unknown O99.332 - Smoking Marcanthmarah, Active [place] (tobacco) [facility] complicating Hospital , second Repository trimester / O99.332(ICD-10) 2018 Unknown O99.282 - Marcanthony, Active [place] Endocrine, [facility] nutritional and Hospital metabolic diseases Repository complicating , second trimester / O99.282(ICD-10) 2018 Unknown O34.219 - Maternal Marcanthony, Active [place] care for [facility] unspecified type Hospital scar from previous Repository delivery / O34.219(ICD-10) 2018 Unknown Z87.898 - Personal Marcanthony, Active [place] history of other [facility] specified Hospital conditions / Repository Z87.898(ICD-10) 2018 Unknown O09.92 - Marcanthony, Active [place] Supervision of high [facility] risk , Hospital unspecified, second Repository trimester / O09.92(ICD-10) 2018 Unknown G40.909 - Epilepsy, Marcanthony, Active [place] unspecified, not [facility] intractable, Hospital without status Repository epilepticus / G40.909(ICD-10) 2018 Unknown Z3A.19 - 19 weeks Marcanthony, Active [place] gestation of [facility] / Hospital Z3A.19(ICD-10) Repository 07/30/2018 Unknown E03.9 - Marcanthony, Active [place] Hypothyroidism, [facility] unspecified / Hospital E03.9(ICD-10) Repository 07/03/2018 Unknown Z34.90 - Encounter Marcanthony, Active [place] for supervision of [facility] normal , Hospital unspecified, Repository unspecified trimester / Z34.90(ICD-10) 07/02/2018 Unknown O09.90 - Marcanthony, Active [place] Supervision of high [facility] risk , Hospital unspecified, Repository unspecified trimester / O09.90(ICD-10) 07/02/2018 Unknown O09.91 - Marcanthony, Active [place] Supervision of high [facility] risk , Hospital unspecified, first Repository trimester / O09.91(ICD-10) PROCEDURES PROCEDURES No Procedure Records FoundRESULTS RESULTS 12 LEAD ELECTROCARDIOGRAM Observed: 09/29/2018 Status: F Source: [place] 2:42 PM [facility] Cardiovascular Services [address] [place] [address] 12 Lead EKG 09/27/18 0421 MR#: [id number] Acct: [id number] Name: MARILYN MONTALVO Rep #: [id number] : 2000 18 From: Aniket Osullivan MD Attending Dr: Status: DEP ER Ordering Dr: Usman Gerber MD Date: 09/27/18 Location: ED Sex: F C Admitted: Test Reason : SOB Blood Pressure : / mmHG Vent. Rate : 075 BPM Atrial Rate : 075 BPM P-R Int : 154 ms QRS Dur : 088 ms QT Int : 384 ms P-R-T Axes : -12 054 038 degrees QTc Int : 428 ms Normal sinus rhythm Normal ECG Confirmed by ABRAN BUTLER, ANIKET ([id number]), senior technical editor LENA GUADALUPE ([id number]) on 09/29/2018 2:42:16 PM Referred By: BUZZ Confirmed By:ANIKET OSULLIVAN MD 09/29/18 1442 Date Aniket Osullivan MD CC: No Primary Care Physician; USMAN GERBER MD Signed EMERGENCY DEPARTMENT Observed: 09/27/2018 Status: F Source: [place] SUMMARY 7:22 AM [facility] Medical Records Department [address] [place] [address] Emergency Department Summary 09/27/18 0405 MR#: [id number] Acct: [id number] Name: MARILYN MONTALVO Rep #: [id number] : 2000 18 From: Usman Gerber MD PCP: Care Physician, No Primary Status: REG ER History of Present Illness Chief Complaint: Shortness of Breath Informant: Patient Onset: Days - 3 Context: Gradual Onset Timing: Continuous Quality: short of breath Location: throat, but doesn't feel swollen or sore Current Severity: Moderate Maximum Severity: Severe Worsened by: nothing in particular Relieved by: nothing Associated Symptoms: throat discomfort/tightness Narrative: Patient is approximately 24 weeks , states for the past 4 or 5 months she has felt mildly short of breath but it has been worse in the last several days especially today since she has developed a cough and congestion. No fevers. Cough is nonproductive. She is still feeling the baby move and is having no abdominal symptoms or vaginal discharge/bleeding. She does not have a history of asthma. She feels like a tightness is in her throat but has no chest discomfort. No history of DVT or PE, no leg pain or swelling, or other recent illness. - Past Medical History (1) Graves disease Status: Resolved (2) Convulsion, non-epileptic Status: Chronic (3) Migraine Status: Chronic Past Medical History - Allergies and Home Meds Allergies/Adverse Reactions: Allergies levothyroxine sodium [From Synthroid] Allergy (Verified 09/27/18 03:09) Other Primary Care Physician: Care Physician,No Primary [Primary Care Provider] - Smoking Status: Current every day smoker Review of Systems General: Denies: Chills, Fever, Sweats Eyes: Denies: Visual changes - bilaterally, Diplopia ENT: Denies: Bilateral ear pain, Sore throat Cardiovascular: Denies: Chest pain, Palpitations Respiratory: Reports: Dyspnea, Cough. Denies: Sputum, Dyspnea on exertion, Orthopnea Gastrointestinal: Denies: Abdominal pain, Nausea, Vomiting, Diarrhea, Melena, Hematochezia Genitourinary: Reports: Frequency - since . Denies: Dysuria, Hematuria Musculoskeletal: Denies: Back pain, Swelling, Extremity Pain Skin: Denies: Rash, Abscess Neurological: Denies: Headache, Weakness, Numbness Psych: Denies: Depression, Anxiety Endocrine: Denies: Polyuria, Polydipsia Hematologic: Denies: Easy bruising, Easy bleeding Allergy: Denies: Swelling of the mouth, Swelling of the tongue Physical Exam Vital Signs/Narrative: Vital Signs 09/27/18 03:04 22 H 09/27/18 02:59 98.5 F 94 22 H 114/73 95 Inital Vital Signs reviewed: Yes General: Well nourished, Well developed, - - conversive in full sentences, nad Head: Normocephalic, Atraumatic Eyes: Perrl, EOMI ENT: Moist mucous membranes, No rhinorrhea Neck: Supple, Nontender Cardiovascular: Regular rate, Regular rhythm, No murmurs, Normal S1, Normal S2 Respiratory: No distress, CTA bilaterally, Chest nontender Abdomen: Soft, Nontender, Nondistended, Normal bowel sounds, - - gravid uterus to about the umbilicus Back: Nontender, Normal Inspection Extremities: Nontender - no calf tenderness or palpable cords, No edema Skin: Normal color, No rash Neurological: Alert, Oriented x3, Cranial nerves II-XII grossly intact, Normal Strength, Normal Sensation Psychological: Normal affect Diagnostic/Tx/Re-eval Impressions Chest X-Ray 09/27/18 04:50 IMPRESSION: Normal x-ray examination of the chest. Electronically Signed: Graham Griffith MD at 5:39 EST Tel , Service support , Chest CTA 09/27/18 05:13 IMPRESSION: 1. No CTA demonstrated large or central pulmonary embolism or arterial dissection. 2. There is limited enhancement of segmental pulmonary arteries and therefore segmental pulmonary emboli are not excluded. Electronically Signed: Zehra Guadalupe MD at 6:47 EST , Service support , 09/27/18 04:50 Chest PA and Lateral [RAD] Stat 09/27/18 05:13 CTA Chest W/WO Contrast [CT] Stat Laboratory Results WBC 11.1 H - Rhythm Strip Rhythm Strip: Sinus Rhythm Rate: 75 Ectopy: None - EKG Initial EKG Interpretation: Sinus Rhythm, No Acute Injury Pattern, - - Normal EKG - Medical Decision Making D-dimer is elevated at 1.01, the rest of her initial workup is unremarkable/normal including chest x-ray. I had a extensive discussion with the patient regarding her elevated risk for pulmonary embolus and given her symptoms, I recommend CT angiography of the chest as the least risky testing modality to the fetus and the best way to rule out pulmonary embolus in her at this time. She was amenable to this, it was performed and she was given IV fluids afterwards, the CT is unremarkable. The contrast bolus provided relatively limited views of the pulmonary vasculature, however no major filling defects were seen. Her vitals are normal and she is conversational with no difficulty. Differential diagnosis here includes progesterone-related dyspnea. 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 She is comfortable with that plan. ED Disposition - Plan for ED Patient: Disposition: Home or Assisted Living Chief Complaint: Shortness of Breath Diagnosis: Dyspnea, Second trimester Instructions: ED Dyspnea Shortness of Breath Referrals: Katerine Mcnulty MD [STAFF PHYSICIAN] - (Call for appointment to be seen within the next week) What to do if you have Problems For any increased pain, shortness of breath, bleeding, nausea or vomiting, chest pain, or any unexpected problems, contact your Primary Care Provider. Call [facility] ([phone]) or report to the closest Emergency Room. Call 911 if necessary. 09/27/18 07 <Electronically signed by Usman Gerber MD> Date Usman Gerber MD Cosigner Signature (If Indicated): Date CC: No Primary Care Physician CTA CHEST W/WO Observed: 09/27/2018 Status: F Source: [place] CONTRAST 5:15 AM [facility] REPOSITORY [facility] Imaging Services [address] [place] [address] CTA Chest W/WO Contrast MR#: [id number] Acct: [id number] Name: MARILYN MONTALVO Rep #: [id number] : 2000 F 18 From: Zehra Guadalupe MD PCP: Care Physician, No Primary Status: REG ER Study: CTA Chest W/WO Contrast Date of Exam: 09/27/18 Exam# [id number] Ordering Dr: Usman Gerber MD STUDY: CTA CHEST REASON FOR EXAM: Female, 18 years old. Shortness of breath and elevated d-dimer. RADIATION DOSAGE (If Supplied By Facility): CTDIvol = ( 13.29 ) mGy, DLP = ( 449.98 ) mGycm TECHNIQUE: The examination was performed with the intravenous administration of 100 ml of Isovue 370 contrast material. Post-processing of the angiographic images was performed, with multiplanar reformation and 3D reconstruction. Individualized dose optimization techniques were used for this CT. COMPARISON: Prior comparison studies are not available for review at this time. FINDINGS: There is limited enhancement of the main pulmonary artery and right and left pulmonary arteries. There is limited enhancement of the bilateral peripheral pulmonary arteries. There is no demonstrated large or central pulmonary embolism. There is prominence of the main pulmonary arteries without peripheral pulmonary vascular congestion. Normal thoracic aorta and visualized great vessels. There is no demonstrated aortic dissection. Normal heart and pericardium. Normal mediastinum. Normal hilar regions. Normal visualized trachea and bronchi. The lungs are well expanded. Normal pulmonary parenchyma. Normal pleura. Normal chest wall structures. Normal osseous structures. Normal visualized upper abdomen. CT/CTA Chest W/WO Contrast IMPRESSION: 1. No CTA demonstrated large or central pulmonary embolism or arterial dissection. 2. There is limited enhancement of segmental pulmonary arteries and therefore segmental pulmonary emboli are not excluded. Electronically Signed: Zehra Guadalupe MD at 6:47 EST , Service support , CC: No Primary Care Physician; USMAN GERBER MD Data Acquisition Technician: Signed BASIC METABOLIC Collected: 09/27/2018 Status: F Source: [place] PROFILE (BMP) 4:31 AM [facility] REPOSITORY TYPE CODE TESTS RESULT OUT OF RANGE REFERENCE UNITS LAB L501.0100 74-106 mg/dL Normal GLU 79 Result Comment: Please note revised GLUCOSE reference range effective 2017. LAB L501.1000 7-18 mg/dL Normal BUN 7 LAB L501.1100 0.55-1.02 mg/dL Low CREAT,SERUM 0.53 Result Comment: The validity of the calculated GFR AND GFRAA in patients over 70 years has not been determined. Clinical correlation is essential. LAB L501.1110 >60 mL/min Normal EST GFR 155 Result Comment: Non- GFR Calc LAB L501.1115 >60 mL/min Normal EST GFR - AA 188 Result Comment: GFR Calc LAB L501.1255 ml/min Normal Estimated CRCL 146.21 LAB L501.1300 10-20 RATIO BUN/CRE Normal 13.1 LAB L501.2200 8.5-10 mg/dL Low .1 CA 8.4 LAB L501.5300 136-14 mmol/L 5 NA Normal 140 LAB L501.5600 3.5-5. mmol/L 1 K Normal 3.6 LAB L501.5900 98-107 mmol/L CL Normal 107 LAB L501.6100 21.0-3 mmol/L 2.0 CO2 Normal 22.0 LAB L501.6200 5-15 GAP Normal 11 Performed By: #### L500.2500 #### [facility] [address] [place], [address] CBC W/DIFF, AUTOMATED Collected: 09/27/2018 Status: C Source: [place] 4:31 AM [facility] REPOSITORY TYPE CODE TESTS RESULT OUT OF RANGE REFERENCE UNITS LAB L100.1000 4.4-11.0 K/mm3 High WBC 11.1 LAB L100.1200 4.2-5.4 M/mm3 Low RBC 3.20 LAB L100.1300 12.0-15.0 g/dl Low HGB 9.5 LAB L100.1400 37-47 % Low HCT 28.7 LAB L100.1500 81-99 fL Normal MCV 89.7 LAB L100.1600 27.0-32.0 pg Normal MCH 29.7 LAB L100.1700 32-36 g/gl Normal MCHC 33.1 LAB L100.1810 11.6-14.6 % High RDW CV 14.7 LAB L100.1820 35.1-43.9 fl High RDW SD 46.8 LAB L100.1900 150-450 K/mm3 Normal PLT 301 LAB L100.2000 6.2-12.0 fl Normal MPV 9.6 LAB L100.2100 47-70 % High NEUT% 72.4 LAB L100.2200 19-41 % Low LY% 15.6 LAB L100.2300 0-10 % Normal MONO% 8.9 LAB L100.2400 0-5 % Normal EO% 0.6 LAB L100.2500 0-1 % Normal BASO% 0.3 LAB L100.2550 0.0-0.9 % High IM GRAN % 2.200 Result Comment: IG% - Immature Granulocytes (promyelocytes, myelocytes and metamyelocytes) > 1% indicates that a LEFT SHIFT is Present. LAB L100.2620 2.0-7.7 X10 3/uL High Absolute Neut 8.1 LAB L100.2720 0.83-4.51 X10 3/ul Normal Absolute Lymph 1.73 LAB L100.9900 Normal PATH REV Reviewed Result Comment: Neutrophilic leukocytosis with left shift. Normocytic anemia. Clinical correlation necessary. Chris Belcher M.D. 09/27/18 AMENDED REPORT 09/27/18 1057 PATH REV previously reported as: January Performed By: #### L100.0100 #### [facility] [address] [facility] [place], [address] D-DIMER QUANTITATIVE Collected: 09/27/2018 Status: F Source: [place] (DVT/PE) 4:31 AM [facility] REPOSITORY TYPE CODE TESTS RESULT OUT OF RANGE REFERENCE UNITS LAB L300.8000 0.27-0.49 FEU/ug/m High alert D-DIMER 1.01 QUANT Result Comment: D-Dimer ELEVATED (>0.49): Additional studies and clinical assessments are indicated to conclude diagnosis of: Deep Vein Thrombosis (DVT) or Pulmonary Embolism (PE) CRITICAL VALUE VERIFIED. CALLED TO [facility]AD[facility] GARZA ED 09/27/18 0500 [facility]. RESULTS READ BACK BY SAME . Performed By: #### L300.8000 #### [facility] [address] [place], [address] CHEST PA AND LATERAL Observed: 09/27/2018 Status: F Source: [place] 4:05 AM [facility] REPOSITORY [facility] Imaging Services [address] [place] [address] Chest PA and Lateral MR#: [id number] Acct: [id number] Name: MARILYN MONTALVO Rep #: [id number] : 2000 F 18 From: Graham Griffith MD PCP: Care Physician, No Primary Status: REG ER Study: Chest PA and Lateral Date of Exam: 09/27/18 Exam# [id number] Ordering Dr: Usman Gerber MD STUDY: X-RAY CHEST REASON FOR EXAM: Female, 18 years old. Dyspnea TECHNIQUE: Frontal and lateral views of the chest. COMPARISON: None. FINDINGS: The lungs are clear and expanded. There is no demonstrated pleural abnormality. Normal size heart. Normal mediastinum and zion. Normal visualized pulmonary arteries. Normal visualized aortic arch and descending thoracic aorta. Normal visualized thoracic spine. Normal visualized ribs, clavicles, and shoulders. There is no demonstrated abnormality of the visualized soft tissue structures of the upper abdomen. RAD/Chest PA and Lateral IMPRESSION: Normal x-ray examination of the chest. Electronically Signed: Graham Griffith MD at 5:39 EST Tel , Service support , CC: No Primary Care Physician; USMAN GERBER MD Data Acquisition Technician: Signed CBC W/DIFF, AUTOMATED Collected: 2018 Status: F Source: [place] 1:21 PM [facility] REPOSITORY TYPE CODE TESTS RESULT OUT [...] Lymph 1.70 Performed By: #### L100.0100 #### [facility] [address] [place], [address] TYPE AND SCREEN Collected: 2018 Status: F Source: [place] 1:21 PM [facility] REPOSITORY Order Comment: Reason for Type AND Screen/Red Cells: TYPE CODE TESTS RESULT OUT OF RANGE REFERENCE UNITS LAB B10.0800 O Normal BLOOD TYPE GEL POSITIVE LAB B100.4000 Normal Antibody NEGATIVE Screen Performed By: #### B101.7450 #### [facility] [address] [place], [address] FOLDER INSPECTOR OFFICE VISIT Observed: 2018 Status: F Source: [place] REPORT 1:09 PM [facility] REPOSITORY [facility] [address] [place] [address] OFFICE VISIT Date of Service: 08/27/18 MR#: [id number] Acct: [id number] Name: MARILYN MONTALVO Rep #: [id number] : 2000 Provider: Katerine Mcnulty MD Age/Sex: 18/F Location[place] [facility] Status: Signed Intake Vital Signs08/27/18 Height 5 ft 4 in 08/27/18 Weight: 175 lb 08/27/18 Body Mass Index (BMI) 30.0 08/27/18 Blood Pressure 114/70 Intake Visit Reasons: 19 weeks Chief Complaint: est ob Cemetery Counselor Required: No Is patient in pain?: No [...] h a n HPI 19 weeks: Details: MARILYN MONTALVO is a 18 year old who presents for routine OB visit. patient states that she fell down the steps Thursday evening and landed on her back into the [facility] OB Visit GUIDO Calculator Estimated Delivery Date [...] MD Cosigner Signature: Date (if applicable) CC: FOLDER INSPECTOR OFFICE VISIT Observed: 07/30/2018 Status: F Source: [place] REPORT 1:47 PM [facility] REPOSITORY [facility] [address] [place] [address] OFFICE VISIT Date of Service: 07/30/18 MR#: [id number] Acct: [id number] Name: MARILYN MONTALVO Rep #: [id number] : 2000 Provider: Katerine Mcnulty MD Age/Sex: 17/F Location[place] [facility] Status: Signed Intake Vital Signs07/30/18 Height 5 ft 4 in 07/30/18 Weight: 167 lb 07/30/18 Body Mass Index (BMI) 28.6 07/30/18 Blood Pressure 114/80 Intake Visit Reasons: 15 weeks/Discuss questions about MFM (see note) Chief Complaint: est ob, questions about MFM Cemetery Counselor Required: No Is patient in pain?: No [...] weeks/Discuss questions about MFM (see note): Details: MARILYN MONTALVO is a 17 year old who [...] Supervision of high risk in second trimester O09. GUIDO 01/15/19 TONY Urban (Nanci Jimenez) 8. [...] Supervision of high risk in second trimester O09 Trimester: second trimester Nonintractable epilepsy without status epilepticus, unspecified epilepsy type G40.909 Epilepsy type: unspecified Intractability: not intractable Status epilepticus: without status epilepticus 07/30/18 1347 <Electronically signed by Katerine Mcnulty MD> Date Katerine Mcnulty MD [facility] Signature: Date (if applicable) CC: FOLDER INSPECTOR OFFICE VISIT Observed: 07/02/2018 Status: F Source: [place] REPORT 8:57 PM [facility] [address] [place] [address] OFFICE VISIT Date of Service: 07/02/18 MR#: [id number] Acct: [id number] Name: MARILYN MONTALVO Rep #: [id number] : 2000 Provider: Katerine Mcnulty MD Age/Sex: 17/F Location[place] [facility] Status: Signed Intake Vital Signs07/02/18 Height 5 ft 4 in 07/02/18 Weight: 169 lb 07/02/18 Body Mass Index (BMI) 29.0 07/02/18 Blood Pressure 112/80 Intake Visit Reasons: NOB - LMP MID MARCH (11 WEEKS?) Chief Complaint: NEW OB Cemetery Counselor Required: No Is patient in pain?: No Allergies levothyroxine sodium [From Synthroid] Allergy (Verified 07/02/18 12:52) Other Medications Nitrofurantoin Macrocrystals [Macrobid] 100 mg PO Q12 #10 cap 05/22/18 [Rx] Prenatabs FA 1 tab PO DAILY [...] Past Pregnancies Del. DateName GA/Weeks Outcome Route Bt WeighInfant GeLabor LgtAnesthvaleriaDel LocatProvider FOB t n h a n HPI NOB - LMP MID MARCH (11 WEEKS?): Details: MARILYN MONTALVO is a 17 year old who [...] Pulmonary (e.g.,TB,Asthma), Seasonal allergies, Drug/latex allergies/reactions, Breast, Block Mechanic surgery, Anesthetic complications, History of abnormal pap, [...] appearing, comfortable, no acute distress Orientation: alert [facility] Head: normal to inspection, atraumatic, normocephalic Ears: [...] BY PCR Collected: 07/02/2018 Status: F Source: [place] 5:25 PM [facility] REPOSITORY TYPE CODE TESTS RESULT OUT OF RANGE REFERENCE UNITS LAB L8200.2100 Negative Normal Chlam Negative Trac PCR LAB L8200.2200 Negative Normal NG by Negative PCR Performed By: #### L8200.2000 #### [facility] [address] [place], [address] URINE DRUG SCREEN Collected: 07/02/2018 Status: F Source: [place] (AMELIATA) 2:10 PM [facility] REPOSITORY Order Comment: List of Drugs Taken or Suspected? UNK TYPE CODE TESTS RESULT OUT OF RANGE REFERENCE UNITS LAB L505.0075 TO BE Normal CONFIRMED Result Comment: CONFIRMATORY TESTING FOR ALL POSITIVE URINE DRUG SCREEN RESULTS WILL ONLY BE SENT OUT UPON PHYSICIAN ORDER. VISTA Urine Drug Screen methods provide only preliminary [...] THC POSITIVE Performed By: #### L505.5000 #### [facility] [address] [place], [address] PROTEIN+CREATININE Collected: Status: F Source: [place] RATIO,URINE 07/02/2018 2:10 PM [facility] REPOSITORY TYPE CODE TESTS RESULT OUT OF RANGE REFERENCE UNITS LAB L501.1200 NO RANGE EST. mg/dL Normal UR CREAT 190.00 LAB L501.1930 <11.9 mg/dL High 17.2 PROTEIN,UR.R AN. LAB L501.1940 0-200 mg/g CRE Normal PROT:CRE 91 RATIO Performed By: #### L501.0900, L8200.2000, M100.0650 #### [facility] [address] [place], [address] CT/NG [facility] BY PCR Collected: 07/02/2018 Status: F Source: [place] 2:10 PM [facility] REPOSITORY TYPE CODE TESTS RESULT OUT OF RANGE REFERENCE UNITS LAB L8200.2100 Negative Normal Chlam Negative Trac PCR LAB L8200.2200 Negative Normal NG by Negative PCR Performed By: #### L501.0900, L8200.2000, M100.0650 #### [facility] [address] [place], [address] Observed: 07/02/2018 Status: F Source: [place] CULTURE, URINE 2:10 PM [facility] REPOSITORY Urine Culture ORGANISM 1: Presumptive E. coli Winder Count >100,000 Presumptive E. coli: REACTION Amoxacillin/Clavulanic [...] <=20 S (NF) indicates non-formulary drug at [facility]. Approval by Infectious Disease Specialist required before non-formulary drugs may be ordered and/or dispensed. Performed By: #### L501.0900, L8200.2000, M100.0650 #### [facility] [address] [place], [address] CBC W/DIFF, AUTOMATED Collected: 07/02/2018 Status: F Source: [place] 2:07 PM [facility] REPOSITORY TYPE CODE TESTS RESULT OUT [...] Lymph 1.77 Performed By: #### L100.0100 #### [facility] [address] [facility]. [place], [place], [address] HEMOGLOBIN A1C Collected: 07/02/2018 Status: F Source: [place] 2:07 PM [facility] REPOSITORY TYPE CODE TESTS RESULT OUT OF RANGE REFERENCE UNITS LAB L501.9985 4.2-6.3 % Normal HGB A1C 5.6 Performed By: #### L501.9985 #### [facility] [address] [place], [address] TYPE AND SCREEN Collected: 07/02/2018 Status: F Source: [place] 2:07 PM [facility] REPOSITORY Order Comment: Reason for Type AND Screen/Red Cells: TYPE CODE TESTS RESULT OUT OF RANGE REFERENCE UNITS LAB B10.0800 O Normal BLOOD TYPE GEL POSITIVE LAB B100.4000 Normal Antibody NEGATIVE Screen Performed By: #### B101.7450 #### [facility] [address], [place], [address] COMPREHENSIVE METABOLIC Collected: 07/02/2018 Status: F Source: [facility] 2:07 PM [facility] REPOSITORY TYPE CODE TESTS RESULT OUT [...] Performed By: #### L500.4050, L501.9520, L506.0400 #### [facility] [address], [place], [id number] THYROID STIM HORMONE Collected: 07/02/2018 Status: F Source: [place] (TSH) 2:07 PM [facility] REPOSITORY TYPE CODE TESTS RESULT OUT OF RANGE REFERENCE UNITS LAB L501.9520 0.358-3.74 uIU/mL High TSH 72.80 Performed By: #### L500.4050, L501.9520, L506.0400 #### [facility] [address], [place], [id number] T4 FREE DIRECT Collected: 07/02/2018 Status: F Source: [place] 2:07 PM [facility] REPOSITORY TYPE CODE TESTS RESULT OUT OF REFERENCE UNITS RANGE LAB L506.0400 0.76-1.46 ng/dL Low T4 FREE 0.46 DIRECT Performed By: #### L500.4050, L501.9520, L506.0400 #### [facility] [address] [facility]. [place], [place], [id number] RUBELLA IGG Collected: 07/02/2018 Status: F Source: [place] 2:07 PM [facility] REPOSITORY TYPE CODE TESTS RESULT OUT OF RANGE REFERENCE UNITS LAB L509.4000 IU/mL Normal Rubella IgG 24.9 Result Comment: Antibody results Interpretation of Immune Status < 5 IU/ml Presumed Non-immune 5 - < 10 IU/ml Equivocal > or = 10 IU/ml Presumed Immune Performed By: #### L509.4000, L3890.6005 #### [facility]. [place], [place], [id number] #### L3100.0390, L3280.0100 #### [facility] (refer to report for specific site) refer to report for address and phone number HIV - [facility] Collected: 07/02/2018 Status: F Source: [place] 2:07 PM [facility] REPOSITORY TYPE CODE TESTS RESULT OUT OF RANGE REFERENCE UNITS LAB L3890.6005 Nonreactive Normal HIV - [facility] Non-Reactive Performed By: #### L509.4000, L3890.6005 #### [facility] [address] [place] [address]. [place], [place], [id number] #### L3100.0390, L3280.0100 #### [facility] (refer to report for specific site) refer to report for address and phone number HEPATITIS B SURFACE Collected: 07/02/2018 Status: F Source: [place] AG 2:07 PM [facility] REPOSITORY TYPE CODE TESTS RESULT OUT OF RANGE REFERENCE UNITS LAB L3100.0400 Negative Normal HB Negative SURF AG Result Comment: Performed at: - [facility] [address] [id number] Digital Campaign Manager: Marie Sutherland MD, Phone: [phone] Performed at: CB - [facility] [address] [id number] Digital Campaign Manager: Zohaib Mo PhD, Phone: [phone] Performed By: #### L509.4000, L3890.6005 #### [facility] [address] [place], [address] #### L3100.0390, L3280.0100 #### [facility] (refer to report for specific site) refer to report for address and phone number CYSTIC FIBROSIS PROF Collected: 07/02/2018 Status: F Source: [place] 2:07 PM [facility] REPOSITORY TYPE CODE TESTS RESULT OUT [...] a carrier of cystic fibrosis, please contact [employer] at for a revised report. Mutation Detection Detection rates are based on mutation Rates among Ethnic frequencies in patients affected with Groups cystic fibrosis. Among individuals with an atypical or mild presentation (e.g. congenital absence of the vas deferens, pancreatitis) detection rates may vary from those provided here: Carrier risk reduction when no family history Detection Ethnicity Rate Ashkenazi 10/23 to 97% Yarsanism 10/22 to 90% (non-) -Namibian to 69% 46 to 73% to 55% This interpretation is based on the clinical and family relationship information provided and the current understanding of the molecular genetics of this condition. MUTATIONS ANALYZED: G85E V520F Z2068E 2183AA to G R117H G542X B2880U 2184delA R334W S549N 394delTT 2789+5G to A R347H S549R 621+1G to T 3120+1G to A R347P G551D 711+1G to T 3659delC A455E R553X 1078delT 3849+10kbC to T TebjmH998 R560T 1717-1G to A 3876delA OnbdrV582 I7515W 1898+1G to A 3905insT METHODS/LIMITATIONS: DNA is isolated from the sample and tested for the 32 CF mutations on the [employer] Array Platform ([employer]). Regions of the CFTR gene are amplified enzymatically and subjected to a solution-phase multiplex allele-specific primer extension with subsequent hybridization to a bead array and fluorescence detection. Polymorphisms F508C, I506V and I507V are included in this panel to rule out false positive pljcuG208 homozygotes. Reflex testing of 5T is included in the panel for R117H interpretation. False positive or negative results may occur for reasons that include genetic variants, blood transfusions, bone marrow transplantation, erroneous representation of family relationships or contamination of a sample with maternal cells. REFERENCES: 1. Updates on Carrier Screening for Cystic Fibrosis. (2011) Am J Ob Gynecol 117(4):4519-3835 2. Moiz, et al. (2004) Renetta Med 6:387-91 3. Juan Luis, et al. (2002) [facility]etta Med 4:379-391 4. Preconception and carrier screening for cystic fibrosis: (2001)ACOG.ACMG publication Results Released By: Bev Kirk, Ph.D., Billiard Table Repairer Released By: Bev Kirk, Ph.D., Director LAB [...] procedure. Performed By: #### L509.4000, L3890.6005 #### [facility] [address] [place], [place], [address] #### L3100.0390, L3280.0100 #### [facility] (refer to report for specific site) refer to report for address and phone number RAPID PLASMIN REAGIN Collected: 07/02/2018 Status: F Source: [place] (RPR) 2:07 PM [facility] REPOSITORY TYPE CODE TESTS RESULT OUT OF REFERENCE UNITS RANGE LAB L700.5000 NONREACTIVE NONREACTIVE Normal RPR Performed By: #### L700.5000 #### [facility] [address] [place], [address] EMERGENCY DEPARTMENT Observed: 05/22/2018 Status: F Source: [place] SUMMARY 8:32 PM [facility] REPOSITORY [facility] Medical Records Department [address] [place] [address] Emergency Department Summary 05/22/18 1812 MR#: [id number] Acct: [id number] Name: MARILYN MONTALVO Rep #: [id number] : 2000 17 From: Oumar Kern PCP: Care Physician, No Primary Status: REG ER - ER Visit Summary Date of Service: 05/22/18 Chief Complaint: Pelvic pain History of Present Illness: The patient is a 17 F 2 day history lower pelvic cramping. Home test positive a week ago. Abnormal menstrual periods, last menstrual period was January of this year. 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 She has appointment upcoming week. She states she called her STUDIO CAMERA OPERATOR today was told in the ED for [...] Complains of cramping. She was given one Vivian. Workup initiated hCG is 29,000. Ultrasound obtained intrauterine at 6 weeks. Urine did note signs of infections culture sent. With her being will be started on Macrobid. She will keep her follow-up with her OB. Smoking cessation discussed. Use Tylenol as needed. Treatment Plan: [] Disposition: Discharge Impression: 1. First trimester intrauterine 2. UTI in This note was generated with Indigoz dictation software. It may contain incorrect words, [...] antibiotic as prescribed. Keep follow-up with your FOLDER INSPECTOR. What to do if you have Problems For any increased pain, shortness of breath, bleeding, nausea or vomiting, chest pain, or any unexpected problems, contact your Primary Care Provider. Call [facility] ([phone]) or report to the closest Emergency Room. Call 911 if necessary. 05/22/182031 <Electronically signed by Oumar Kern> Date Oumar Kern Cosigner Signature (If Indicated): Date CC: No Primary Care Physician URINALYSIS, COMPLETE Collected: 05/22/2018 Status: F Source: [place] 6:30 PM [facility] REPOSITORY Order Comment: Order Date: 05/22/18 How [...] Normal AMORPHOUS Performed By: #### L400.0001 #### [facility] [address] [place], [address] Observed: 05/22/2018 Status: F Source: [place] CULTURE, URINE 6:30 PM [facility] REPOSITORY Order Date: 05/22/18 Urine Culture ORGANISM 1: Presumptive E. coli Winder Count >100,000 Presumptive E. coli: REACTION Amoxacillin/Clavulanic [...] <=20 S (NF) indicates non-formulary drug at [facility]. Approval by Infectious Disease Specialist required before non-formulary drugs may be ordered and/or dispensed. Performed By: #### M100.0650 #### [facility] [address] [place], [address] HCG TITER QUANT., Collected: 05/22/2018 Status: F Source: [place] SERUM 6:15 PM [facility] REPOSITORY TYPE CODE TESTS RESULT OUT OF RANGE REFERENCE UNITS LAB L700.8000 <9 non-preg mIU/mL High HCG 45023 QUANT. Performed By: #### L700.8000 #### [facility] [address] [place], [address] TRANSVAGINAL W/PREG US Observed: 05/22/2018 Status: F Source: [place] 6:09 PM [facility] REPOSITORY [facility] Imaging Services [address] [place] [address] Transvaginal w/Preg US MR#: [id number] Acct: [id number] Name: MARILYN MONTALVO Rep #: [id number] : 2000 F 17 From: Reny Walker MD PCP: Care Physician, No Primary Status: DEP ER Study: Transvaginal w/Preg US Date of Exam: 05/22/18 Exam# [id number] Ordering Dr: Oumar Villa DO STUDY: FIRST [...] Walker MD at 20:58 EDT Tel Direct: [phone], Service support , CC: No Primary Care Physician; Oumar Villa Data Acquisition Technician: Signed DISCHARGE INSTRUCTION Observed: 04/27/2018 Status: F Source: [place] 3:02 PM [facility] REPOSITORY [facility] Medical Records Department [address] [place] [address] Discharge Instruction 04/27/18 1501 MR#: [id number] Acct: [id number] Name: MARILYN MONTALVO Rep #: [id number] : 2000 17 From: Ander Mckeon MD PCP: Jennifer Physician, No Primary Status: REG ER ED [...] your Primary Care Provider. Call [facility] ([phone]) or report to the closest Emergency Room. Call 911 if necessary. 04/27/18 1502 <Electronically signed by Ander Mckeon MD> Date Ander Mckeon MD Cosigner Signature (If Indicated): Date CC: No Primary Care Physician EMERGENCY DEPARTMENT Observed: 04/27/2018 Status: F Source: [place] SUMMARY 3:01 PM [facility] REPOSITORY [facility] Medical Records Department [address] [place] [address] Emergency Department Summary 04/27/18 1409 MR#: [id number] Acct: [id number] Name: MARILYN MONTALVO Rep #: [id number] : 2000 17 From: Ander Mckeon MD [...] Impression: Headache This note was generated with Indigoz dictation software. It may contain incorrect words, [...] your Primary Care Provider. Call [facility] ([phone]) or report to the closest Emergency Room. Call 911 if necessary. 04/27/18 1501 <Electronically signed by Ander Mckeon MD> Date Ander Mckeon MD Cosigner Signature (If Indicated): Date CC: No Primary Care Physician ,SERUM,HCG QUALI. Collected: Status: F Source: [place] 04/27/2018 2:02 PM [facility] REPOSITORY Order Comment: Date of Last Menstrual Period? 04/27/18 TYPE CODE TESTS RESULT OUT OF REFERENCE UNITS RANGE LAB L700.6700 =>Qualitative mIU/mL Normal HCG Qual < 1 triggr LAB L700.7000 0-9 Nonpreg Negative Normal HCGSQUAL NEGATIVE Performed By: #### L700.6800 #### [facility] [address] [place], [address] PROGRESS Observed: 04/27/2018 Status: COMPLETED Source: [place] 1:07 PM [facility] [place] REPOSITORY HNO ID: [id number] Author: Wilmar Haq Service: (none) Author Type: [...] MD CNOV Observed: 04/27/2018 Status: COMPLETED Source: [place] 1:00 PM [facility] REPOSITORY Office Visit (WSTR) PEDROMARILYN D ([id number]) 2000 F Date Time Provider Department 04/27/18 1:[address] [facility] During your visit today, we recorded the [...] INVALID FOR* Medications Discontinued During This Encounter Emwfbezp-Ly-Dtu-Fe-FA (PREN* 0 04/04/2014 04/27/2018 Class: Med Update Route: ORAL Sig: Take 1 tablet by mouth once daily. Patient not taking: Reported on 04/27/2018 Disc: Course of therapy completed Letter Text Marilyn Montalvo Wilmar Haq MD Urgent Care [address] [facility] [address] Dept: [phone] Date this form was last completed: April 27, 2018 Reason for Emergency Transport: Headache, right sided facial numbness, vision change, feeling faint Name: Marilyn Montalvo [facility] Number : [id number] Age: [age] year old : 2000 [facility] [address] [facility] [address] (home) Primary care physician: No Pcp NO PCP Current Vital Signs: BP 120/78 Pulse 76 Temp 36.1 ?C (96.9 ?F) (Tympanic) Resp 18 Wt 74.8 kg (165 lb) LMP 02/24/2018 (Approximate) Allergies: Patient has no known allergies. Current Medications: Current Outpatient Prescriptions: Mqjrskiy-Wn-Edg-Fe-FA ( VITAMIN) tab Take 1 tablet by mouth once daily. (Patient not taking: Reported on 04/27/2018 ) No current facility-administered medications for this visit. Problem List: ACTIVE PROBLEM LIST Pes Planus Past Surgical History PAST SURGICAL HISTORY Procedure Laterality Date - NONE Insurance information: Payor: [employer] MEDICAID / Plan: [employer] MEDICAID / Product Type: Medicaid / Emergency Contact: Extended Emergency Contact Information Primary Emergency Contact: Charis Montalvo Mobile Relation: Country Printer Encounter Status:Closed by WILMAR HAQ MD on 04/27/18 EMERGENCY DEPARTMENT Observed: 01/25/2018 Status: F Source: [place] SUMMARY 12:30 AM [facility] REPOSITORY [facility] Medical Records Department [address] [address] Emergency Department Summary 01/24/18 2213 MR#: [id number] Acct: [id number] Name: MARILYN MONTALVO Rep #: [id number] : 2000 17 From: Jose Antonio Everett MD PCP: Care Physician, No Primary Status: DEP ER - [...] back pain This note was generated with Indigoz dictation software. It may contain incorrect words, [...] problems, contact your Primary Care Provider. Call [facility] ([phone]) or report to the closest Emergency Room. Call 911 if necessary. 01/25/18 0030 <Electronically signed by Jose Antonio Everett MD> Date Jose Antonio Everett MD Cosigner Signature (If Indicated): Date CC: No Primary Care Physician DISCHARGE INSTRUCTION Observed: 01/25/2018 Status: F Source: [place] 12:30 AM [facility] REPOSITORY [facility] Medical Records Department [address] [place] [address] Discharge Instruction 01/24/18 2217 MR#: [id number] Acct: [id number] Name: MARILYN MONTALVO Rep #: [id number] : 2000 17 From: Jose Antonio Everett [...] your Primary Care Provider. Call [facility] ([phone]) or report to the closest Emergency Room. Call 911 if necessary. 01/25/18 0030 <Electronically signed by Jose Antonio Everett MD> Date Jose Antonio Everett MD Cosigner Signature (If Indicated): Date CC: No Primary Care Physician BEDSIDE GLUCOSE Collected: 01/24/2018 Status: F Source: [place] 10:24 PM [facility] REPOSITORY TYPE CODE TESTS RESULT OUT OF RANGE REFERENCE UNITS LAB L501.080 70-110 mg/dL Normal BEDSIDE GLU 110 Result Comment: MANAGEMENT OF PATIENT CARE PER NURSING PROTOCOL Performed By: #### L501.080 #### [facility] Point of Care [address] [place] [address] CNCO Observed: 12/23/2017 Status: COMPLETED Source: [place] 12:00 AM [facility] REPOSITORY Letter Text General Pediatrics, [place] [address] [facility], [address] [place] [address] December 23, 2017 RE: Lynda Yu [address] [facility] [address] 2000 Dear Parent/Guardian of Lynda, We have tried to contact you in regards to your child's Need for Routine Physical Our efforts to reach you have been unsuccessful. Please call [phone] to coordinate your child's plan of care. Thank you and we look forward to talking with you. Sincerely, Primary Care Pediatrics [facility] ALLERGIES ALLERGIES DATE TYPE / NAME / CODE REACTION SEVERITY SOURCE CODE 09/27/2018 Drug levothyroxine Other Unknown [place] Allergy/41 sodium/[id number](RXNO Community [id number]([facility]) [facility] CT) Repository 01/24/2018 Drug No Known Unknown [place] Allergy/41 Allergies/[id number](R Community [id number]([facility] CT) Repository 09/13/2015 DRUG PROPYLTHIOURACIL [place] INGREDI/41 Children's 1474010([facility]) Repository 08/24/2015 DRUG METHIMAZOLE pruritis Low [place] INGREDI/41 Children's [id number]([facility]) Repository Drug NO KNOWN ALLERGIES [employer] Class/4195 [facility] [address]([facility] ED CT) Repository ENCOUNTERS ENCOUNTERS ADMIT/DISCHARGE ACCOUNT ADMITTING ENCOUNTER LOCATION SOURCE NUMBER CLASS 10/12/2018/10/12/19 [id number] Ambulatory [address] Repository 09/27/2018/09/27/20 [id number] Emergency [address] ing:ED Repository 09/14/2018 [id number] Ambulatory BMSBuilding:Ivanna Rees MS.CF.[facility] Repository 09/14/2018/09/14/20 [id number] Ambulatory [address] ing:WPOUTRoom Repository : WP013 08/30/2018 [id number] Ambulatory Building:[facility] Repository 2018 [id number] Ambulatory [facility] ing:PAVLAB Repository 08/27/2018/08/27/20 [id number] Ambulatory BMSBuilding:B [place] 18 MS.[facility] Repository 07/30/2018/07/30/20 [id number] Ambulatory BMSBuilding:B [place] 18 MS.[facility] Repository 07/15/2018 [id number] Ambulatory Building:[facility] Repository 07/02/2018 [id number] Ambulatory [facility] ing:LABSPEC Repository 07/02/2018 [id number] Ambulatory [facility] ing:PAVLAB Repository 07/02/2018/07/02/20 [id number] Ambulatory BMSBuilding:B [place] 18 MS.[facility] Repository 05/22/2018/05/22/20 [id number] Emergency [address] ing:ED Repository 04/27/2018/04/27/20 [id number] Emergency [address] ing:ED Repository 04/27/2018/04/28/20 [id number] Ambulatory [address] Repository 01/24/2018/01/25/20 [id number] Emergency [address] ing:ED Repository PAYERS PAYERS ENCOUNTER GUARANTOR PAYER SUBSCRIBER SOURCE 09/27/2018 MARILYN Merrill Primary AMBAR [place] [id number] Insurance:Tamir MARTINEZODOB: [facility] DRAPT Number: [id number] [id number] Repository [address]Euc: [phone]) Date:0743-00-65AF [phone] () [address]002[address]ZCOFVDETQCP, [place] [address]ON: 09/27/2018 Secondary MARILYN Merrill [place] Insurance:PARAMOUNT LAGAMBODOB: [facility] [id number] Hospital Number: Repository [id number] Date:7125-60-68ML [address] [place] [phone]: 09/27/2018 Tertiary NOT GIVENUNK [place] Insurance:SELF PAY [facility] Number: Effective Repository Date:2018-09-27 09/14/2018 MARILYN D Primary MARILYN D [place] [id number] Insurance:PARAMOUNT LAGAMBODOB: Community [facility] [address] [facility] [id number] Number: Repository [address]Sfz: 330 [id number] [phone] () Date:7404-04-57GM [address] [place] [phone]: 09/14/2018 Secondary MARILYN D [place] Insurance:CIGNAPolicy LAGAMBODOB: [facility] Number: [id number] Hospital [id number] Repository Date:5112-00-65QH [address]OXFYFBKXOPF, [place] [address]RH: 09/14/2018 Tertiary NOT GIVENUNK [place] Insurance:SELF PAY [facility] Number: Effective Repository Date:2018-09-14 09/14/2018 MARILYN D Primary AMBAR [place] [id number] Insurance:CIGNAPolicy LAGAMBODOB: [facility] [address] Number: [id number] [id number] Repository [address]Ghr: 330) Date:0501-76-03CM [phone] () [id number], [place] [address]UA: 09/14/2018 Secondary MARILYN D [place] Insurance:PARAMOUNT LAGAMBODOB: [facility] [id number] Hospital Number: Repository [id number] Date:9844-88-69LU [address] [place] [phone]: 09/14/2018 Tertiary NOT GIVENUNK [place] Insurance:SELF PAY [facility]: Effective Repository Date:2018-09-14 08/30/2018 MARILYN KARLA Primary MARILYN KARLA [place] [facility] LAGAMBODOB: Insurance:CIGNAPolicy LAGAMBODOB: [facility] Number: [id number] Repository ANTWAN AYALA [id number] [place] [address] Date: KRZYSZTOF [place], [address]Lwz: (330) [place] [address] [phone] (HP) 08/30/2018 Secondary MARILYN KARLA [place] [facility] Insurance:PARAMOUNT LAGAMBODOB: Hospital [facility]ANTAGE [id number] Repository [facility]ICAIDPol[facility] [address] Number: [id number] CELESTIN [id number] [place] [address] Date: [address], [place] [address]QF: 2018 MARILYN D Primary MARILYN D [place] [id number] Insurance:PARAMOUNT LAGAMBODOB: [facility] ANTWAN PERRIN ADVANTAGE [facility] [id number] Number: Repository [id number]: 330 [id number] [phone] (HP) Date:3063-60-50YF [address] [place] [address]CQ: 2018 Secondary MARILYN D [place] Insurance:[facility]ENTERNAPolicy [facility]AMBODOB: Community Number: [id number] Hospital [id number] Repository Date:9897-37-24UB [address]KPKXZEXFHCV, [place] [address]II: 2018 Tertiary NOT GIVENUNK [place] Insurance:SELF PAY [facility] Number: Effective Repository Date:2018 2018 MARILYN D Primary MARILYN D [place] [id number] Insurance:PARAMOUNT LAGAMBODOB: [facility] MONCADA DRLUCY ADVANTAGE [facility] [id number] Number: Repository [id number]: ([phone] [id number] [phone] Date:2166-70-48UQ [address] [place] [address]US: 2018 Secondary MARILYN D [place] Insurance:CIGNAPolicy LAGAMBODOB: Community Number: [id number] Hospital [id number] Repository Date:9172-76-09CO [address] [place] [address]HZ: 2018 Tertiary NOT GIVENUNK [place] Insurance:SELF PAY [facility] Number: Effective Repository Date:2018 07/30/2018 MARILYN D Primary MARILYN D [place] [id number] Insurance:PARAMOUNT LAGAMBODOB: [facility] [id number] Number: Repository [id number]: 330 [id number] [phone] () Date:5179-49-20VZ[address] [address]NA: 07/30/2018 Secondary MARILYN D [place] Insurance:CIGNAPolicy LAGAMBODOB: Community Number: [id number] Hospital [id number] Repository Date:8173-65-58KO [address]ZUPEJCXAMP, [place] [address]PI: 07/30/2018 Tertiary NOT GIVENUNK [place] Insurance:SELF PAY [facility] Number: Effective Repository Date:2018-07-15 07/15/2018 [facility] Primary MARILYN KARLA [facility] CSBDOB: Insurance:CIGNAPolicy LAGAMBODOB: [facility] [id number] Number: [id number] Repository LEANNA [id number] [address] [place], [place] Date: KRZYSZTOF CELESTIN, [address]Nhd: [phone] [place] [phone] () 07/15/2018 Secondary MARILYN KARLA [facility] Insurance:PARAMOUNT LAGAMBODOB: [facility] ADVANTAGE [id number] Repository MEDICAIDPolicy 6 SAM[address] Number: KRZYSZTOF CELESTIN, [id number] [place] [address] Date:[address], [place] [address]EY: 07/02/2018 MARILYN D Primary MARILYN D [place] [id number] Insurance:PARAMOUNT LAGAMBODOB: Community [facility] [id number] Number: Repository [id number]: 330 [id number] [phone] (HP) Date:5491-69-50OD [address], [place] [address]BB: 07/02/2018 Secondary MARILYN D [place] Insurance:CIGNAPolicy LAGAMBODOB: Community Number: [id number] Hospital [id number] Repository Date:7265-21-44OA [address]CACYPRTKWKX, [place] [address]JE: 07/02/2018 Tertiary NOT GIVENUNK [place] Insurance:SELF PAY [facility] Number: Effective Repository Date:2018-07-02 07/02/2018 MARILYN D Primary MARILYN D [place] [id number] Insurance:PARAMOUNT LAGAMBODOB: [facility] [id number] Number: Repository [id number]: 330 [id number] [phone] (HP) Date:0529-97-03JG [address], [place] [address]OM: 07/02/2018 Secondary MARILYN D [place] Insurance:CIGNAPolicy LAGAMBODOB: Community Number: [id number] Hospital [id number] Repository Date:1634-32-96QQ [address]UTVFVDTWTGE, [place] [address]IS: 07/02/2018 Tertiary NOT GIVENUNK [place] Insurance:SELF PAY [facility] Number: Effective Repository Date:2018-07-02 07/02/2018 MARILYN D Primary MARILYN D [place] [id number] Insurance:PARAMOUNT LAGAMBODOB: Community [address] ADVANTAGE [facility] [id number] Number: Repository [address]Nxd: 330 [id number] [phone] () Date:0737-78-04JO [address], [place] [address]MZ: 07/02/2018 Secondary MARILYN D [place] Insurance:CIGNAPolicy LAGAMBODOB: Community Number: [id number] Hospital [id number] Repository Date:8416-77-34BT [address]FYYFVCBLZBX, [place] [address]NX: 07/02/2018 Tertiary NOT GIVENUNK [place] Insurance:SELF PAY [facility] Hospital Number: Effective Repository Date:2018-07-02 05/22/2018 MARILYN D Primary MARILYN D [place] [id number] Insurance:CIGNAPolicy LAGAMBODOB: Community [address] Number: [id number] [id number] Repository [address]Ibj: (330) Date:5231-70-72WJ [phone] () 346985KWVDUFQMMQS, [place] [address]OA: 05/22/2018 Secondary MARILYN D [place] Insurance:PARAMOUNT LAGAMBODOB: Community [facility] [id number] Hospital Number: Repository [id number] Date:8302-58-28ZQ [address], [place] [address]WE: 05/22/2018 Tertiary NOT GIVENUNK [place] Insurance:SELF PAY [facility] Hospital Number: Effective Repository Date:2018-05-22 04/27/2018 MARILYN D Primary MARILYN D [place] [id number] Insurance:CIGNAPolicy LAGAMBODOB: Community [address] Number: [id number] [id number] Repository [address]Elu: (330) Date:6827-20-00SG [phone] () [address]16721APMLZORQZEB, [place] [address]HJ: 04/27/2018 Secondary MARILYN D [place] Insurance:PARAMOUNT LAGAMBODOB: Community ADVANTAGE [facility] [id number] Hospital Number: Repository [id number] Date:6831-48-76NJ [address] [place] [address]EC: 04/27/2018 Tertiary NOT GIVENUNK [place] Insurance:SELF PAY [facility] Number: Effective Repository Date:2018-04-27 01/24/2018 MARILYN D Primary AMBAR [place] [id number] Insurance:[facility] CENTERKARLAHonorhealth Rehabilitation Hospitalsophia [facility] Number: [place], [place] [id number] Repository [address]Wdt: (330) Date:2918-46-22CU [phone] () 400733MGGDTOKPQML, [place] [address]DJ: 01/24/2018 Secondary NOT GIVENUNK [place] Insurance:SELF PAY [facility] Number: Effective Repository Date:2018-01-24
== END 2018-09-14 18:10 | disposition home or self-care (01) ==
LOC: WPOUT 17:44 → WP 17:44
PROVIDERS: Referring Provider Obstetrics & Gynecology; Visit Provider Obstetrics & Gynecology
DX: O36.8190 Decreased fetal movements, unspecified trimester, not applicable or unspecified (principal); O99.350 Diseases of the nervous system complicating pregnancy, unspecified trimester; G43.909 Migraine, unspecified, not intractable, without status migrainosus; Z3A.00 Weeks of gestation of pregnancy not specified
CPT/HCPCS: 59050; 99218; G0378

== ENCOUNTER 2018-09-27 02:58 | Emergency (ER) | payer OTHER, MEDICAID, SELFPAY ==
[2018-09-27] VITALS (8 sets, daily range): BP systolic 103–115; BP diastolic 53–73; PULSE 81–98; RESP 16–22; TEMP 36.7–36.9; O2SAT 95–99; BMI 31.4
--- NOTE | 2018-09-27 04:03 | EKG12_ITS ---
Test Reason : SOB Blood Pressure : / mmHG Vent. Rate : 075 BPM Atrial Rate : 075 BPM P-R Int : 154 ms QRS Dur : 088 ms QT Int : 384 ms P-R-T Axes : -12 054 038 degrees QTc Int : 428 ms Normal sinus rhythm Normal ECG Confirmed by ABRAN BUTLER, MAHENDRA ([id number]), dictionary editor LENA GUADALUPE ([id number]) on 09/29/2018 2:42:16 PM Referred By: BUZZ Confirmed By:MAHENDRA OSULLIVAN MD
--- NOTE | 2018-09-27 04:05 | ED.VIS.GEN ---
History of Present Illness Chief Complaint: Shortness of Breath Informant: Patient Onset: Days - 3 Context: Gradual Onset Timing: Continuous Quality: short of breath Location: throat, but doesn't feel swollen or sore Current Severity: Moderate Maximum Severity: Severe Worsened by: nothing in particular Relieved by: nothing Associated Symptoms: throat discomfort/tightness Narrative: Patient is approximately 24 weeks , states for the past 4 or 5 months she has felt mildly short of breath but it has been worse in the last several days especially today since she has developed a cough and congestion. No fevers. Cough is nonproductive. She is still feeling the baby move and is having no abdominal symptoms or vaginal discharge/bleeding. She does not have a history of asthma. She feels like a tightness is in her throat but has no chest discomfort. No history of DVT or PE, no leg pain or swelling, or other recent illness. - Past Medical History (1) Graves disease Status: Resolved (2) Convulsion, non-epileptic Status: Chronic (3) Migraine Status: Chronic Past Medical History - Allergies and Home Meds Allergies/Adverse Reactions: Allergies levothyroxine sodium [From Synthroid] Allergy (Verified 09/27/18 03:09) Other Primary Care Physician: Care Physician,No Primary [Primary Care Provider] - Smoking Status: Current every day smoker Review of Systems General: Denies: Chills, Fever, Sweats Eyes: Denies: Visual changes - bilaterally, Diplopia ENT: Denies: Bilateral ear pain, Sore throat Cardiovascular: Denies: Chest pain, Palpitations Respiratory: Reports: Dyspnea, Cough. Denies: Sputum, Dyspnea on exertion, Orthopnea Gastrointestinal: Denies: Abdominal pain, Nausea, Vomiting, Diarrhea, Melena, Hematochezia Genitourinary: Reports: Frequency - since . Denies: Dysuria, Hematuria Musculoskeletal: Denies: Back pain, Swelling, Extremity Pain Skin: Denies: Rash, Abscess Neurological: Denies: Headache, Weakness, Numbness Psych: Denies: Depression, Anxiety Endocrine: Denies: Polyuria, Polydipsia Hematologic: Denies: Easy bruising, Easy bleeding Allergy: Denies: Swelling of the mouth, Swelling of the tongue Physical Exam Vital Signs/Narrative: Vital Signs Temp Pulse Resp BP Pulse Ox 09/27/18 03:04 22 H 09/27/18 02:59 98.5 F 94 22 H 114/73 95 Inital Vital Signs reviewed: Yes General: Well nourished, Well developed, - - conversive in full sentences, nad Head: Normocephalic, Atraumatic Eyes: Perrl, EOMI ENT: Moist mucous membranes, No rhinorrhea Neck: Supple, Nontender Cardiovascular: Regular rate, Regular rhythm, No murmurs, Normal S1, Normal S2 Respiratory: No distress, CTA bilaterally, Chest nontender Abdomen: Soft, Nontender, Nondistended, Normal bowel sounds, - - gravid uterus to about the umbilicus Back: Nontender, Normal Inspection Extremities: Nontender - no calf tenderness or palpable cords, No edema Skin: Normal color, No rash Neurological: Alert, Oriented x3, Cranial nerves II-XII grossly intact, Normal Strength, Normal Sensation Psychological: Normal affect Diagnostic/Tx/Re-eval Impressions Chest X-Ray 09/27/18 04:50 IMPRESSION: Normal x-ray examination of the chest. Electronically Signed: Graham Griffith MD at 5:39 EST Tel , Service support , Chest CTA 09/27/18 05:13 IMPRESSION: 1. No CTA demonstrated large or central pulmonary embolism or arterial dissection. 2. There is limited enhancement of segmental pulmonary arteries and therefore segmental pulmonary emboli are not excluded. Electronically Signed: Zehra Brown MD at 6:47 EST , Service support , 09/27/18 04:50 Chest PA and Lateral [RAD] Stat 09/27/18 05:13 CTA Chest W/WO Contrast [CT] Stat Laboratory Results 09/27/18 09/27/18 09/27/18 04:31 04:31 04:31 WBC 11.1 H RBC 3.20 L Hgb 9.5 L Hct 28.7 L MCV 89.7 MCH 29.7 MCHC 33.1 RDW 14.7 H RDW Differential 46.8 H Plt Count 301 MPV 9.6 Immature Gran % (Auto) 2.200 H Neut % (Auto) 72.4 H Lymph % (Auto) 15.6 L [place] % (Auto) 8.9 Eos % (Auto) 0.6 Baso % (Auto) 0.3 Absolute Neuts (auto) 8.1 H Absolute Lymphs (auto) 1.73 Total Counted Not Reportable Diff Path Review May foll D-Dimer Quant (PE/DVT) 1.01 H* Sodium 140 Potassium 3.6 Chloride 107 Carbon Dioxide 22.0 Anion Gap 11 BUN 7 Creatinine 0.53 L Estim Creat Clear Calc 146.21 Est GFR (MDRD) Af Amer 188 Est GFR (MDRD) Non-Af 155 BUN/Creatinine Ratio 13.1 Glucose 79 Calcium 8.4 L - Rhythm Strip Rhythm Strip: Sinus Rhythm Rate: 75 Ectopy: None - EKG Initial EKG Interpretation: Sinus Rhythm, No Acute Injury Pattern, - - Normal EKG - Medical Decision Making D-dimer is elevated at 1.01, the rest of her initial workup is unremarkable/normal including chest x-ray. I had a extensive discussion with the patient regarding her elevated risk for pulmonary embolus and given her symptoms, I recommend CT angiography of the chest as the least risky testing modality to the fetus and the best way to rule out pulmonary embolus in her at this time. She was amenable to this, it was performed and she was given IV fluids afterwards, the CT is unremarkable. The contrast bolus provided relatively limited views of the pulmonary vasculature, however no major filling defects were seen. Her vitals are normal and she is conversational with no difficulty. Differential diagnosis here includes progesterone-related dyspnea. I think she is stable to follow-up with her admeasurer. She is comfortable with that plan. ED Disposition - Plan for ED Patient: Disposition: Home or Assisted Living Chief Complaint: Shortness of Breath Diagnosis: Dyspnea, Second trimester Instructions: ED Dyspnea Shortness of Breath Referrals: Katerine Mcnulty MD [STAFF PHYSICIAN] - (Call for appointment to be seen within the next week)
--- NOTE | 2018-09-27 04:08 | ED.DCSUM_ITS ---
History of Present Illness Chief Complaint: Shortness of Breath Informant: Patient Onset: Days - 3 Context: Gradual Onset Timing: Continuous Quality: short of breath Location: throat, but doesn't feel swollen or sore Current Severity: Moderate Maximum Severity: Severe Worsened by: nothing in particular Relieved by: nothing Associated Symptoms: throat discomfort/tightness Narrative: Patient is approximately 24 weeks , states for the past 4 or 5 months she has felt mildly short of breath but it has been worse in the last several days especially today since she has developed a cough and congestion. No fevers. Cough is nonproductive. She is still feeling the baby move and is having no abdominal symptoms or vaginal discharge/bleeding. She does not have a history of asthma. She feels like a tightness is in her throat but has no chest discomfort. No history of DVT or PE, no leg pain or swelling, or other recent illness. - Past Medical History (1) Graves disease Status: Resolved (2) Convulsion, non-epileptic Status: Chronic (3) Migraine Status: Chronic Past Medical History - Allergies and Home Meds Allergies/Adverse Reactions: Allergies levothyroxine sodium [From Synthroid] Allergy (Verified 09/27/18 03:09) Other Primary Care Physician: Care Physician,No Primary [Primary Care Provider] - Smoking Status: Current every day smoker Review of Systems General: Denies: Chills, Fever, Sweats Eyes: Denies: Visual changes - bilaterally, Diplopia ENT: Denies: Bilateral ear pain, Sore throat Cardiovascular: Denies: Chest pain, Palpitations Respiratory: Reports: Dyspnea, Cough. Denies: Sputum, Dyspnea on exertion, Orthopnea Gastrointestinal: Denies: Abdominal pain, Nausea, Vomiting, Diarrhea, Melena, Hematochezia Genitourinary: Reports: Frequency - since . Denies: Dysuria, Hematuria Musculoskeletal: Denies: Back pain, Swelling, Extremity Pain Skin: Denies: Rash, Abscess Neurological: Denies: Headache, Weakness, Numbness Psych: Denies: Depression, Anxiety Endocrine: Denies: Polyuria, Polydipsia Hematologic: Denies: Easy bruising, Easy bleeding Allergy: Denies: Swelling of the mouth, Swelling of the tongue Physical Exam Vital Signs/Narrative: Vital Signs Temp Pulse Resp BP Pulse Ox 09/27/18 03:04 22 H 09/27/18 02:59 98.5 F 94 22 H 114/73 95 Inital Vital Signs reviewed: Yes General: Well nourished, Well developed, - - conversive in full sentences, nad Head: Normocephalic, Atraumatic Eyes: Perrl, EOMI ENT: Moist mucous membranes, No rhinorrhea Neck: Supple, Nontender Cardiovascular: Regular rate, Regular rhythm, No murmurs, Normal S1, Normal S2 Respiratory: No distress, CTA bilaterally, Chest nontender Abdomen: Soft, Nontender, Nondistended, Normal bowel sounds, - - gravid uterus to about the umbilicus Back: Nontender, Normal Inspection Extremities: Nontender - no calf tenderness or palpable cords, No edema Skin: Normal color, No rash Neurological: Alert, Oriented x3, Cranial nerves II-XII grossly intact, Normal Strength, Normal Sensation Psychological: Normal affect Diagnostic/Tx/Re-eval Impressions Chest X-Ray 09/27/18 04:50 IMPRESSION: Normal x-ray examination of the chest. Electronically Signed: Graham Griffith MD at 5:39 EST Tel , Service support , Chest CTA 09/27/18 05:13 IMPRESSION: 1. No CTA demonstrated large or central pulmonary embolism or arterial dissection. 2. There is limited enhancement of segmental pulmonary arteries and therefore segmental pulmonary emboli are not excluded. Electronically Signed: Zehra Brown MD at 6:47 EST , Service support , 09/27/18 04:50 Chest PA and Lateral [RAD] Stat 09/27/18 05:13 CTA Chest W/WO Contrast [CT] Stat Laboratory Results 09/27/18 09/27/18 09/27/18 04:31 04:31 04:31 WBC 11.1 H RBC 3.20 L Hgb 9.5 L Hct 28.7 L MCV 89.7 MCH 29.7 MCHC 33.1 RDW 14.7 H RDW Differential 46.8 H Plt Count 301 MPV 9.6 Immature Gran % (Auto) 2.200 H Neut % (Auto) 72.4 H Lymph % (Auto) 15.6 L [place] % (Auto) 8.9 Eos % (Auto) 0.6 Baso % (Auto) 0.3 Absolute Neuts (auto) 8.1 H Absolute Lymphs (auto) 1.73 Total Counted Not Reportable Diff Path Review May foll D-Dimer Quant (PE/DVT) 1.01 H* Sodium 140 Potassium 3.6 Chloride 107 Carbon Dioxide 22.0 Anion Gap 11 BUN 7 Creatinine 0.53 L Estim Creat Clear Calc 146.21 Est GFR (MDRD) Af Amer 188 Est GFR (MDRD) Non-Af 155 BUN/Creatinine Ratio 13.1 Glucose 79 Calcium 8.4 L - Rhythm Strip Rhythm Strip: Sinus Rhythm Rate: 75 Ectopy: None - EKG Initial EKG Interpretation: Sinus Rhythm, No Acute Injury Pattern, - - Normal EKG - Medical Decision Making D-dimer is elevated at 1.01, the rest of her initial workup is unremarkable/normal including chest x-ray. I had a extensive discussion with the patient regarding her elevated risk for pulmonary embolus and given her symptoms, I recommend CT angiography of the chest as the least risky testing modality to the fetus and the best way to rule out pulmonary embolus in her at this time. She was amenable to this, it was performed and she was given IV fluids afterwards, the CT is unremarkable. The contrast bolus provided relatively limited views of the pulmonary vasculature, however no major filling defects were seen. Her vitals are normal and she is conversational with no difficulty. Differential diagnosis here includes progesterone-related dyspnea. I think she is stable to follow-up with her lamp tester and inspector. She is comfortable with that plan. ED Disposition - Plan for ED Patient: Disposition: Home or Assisted Living Chief Complaint: Shortness of Breath Diagnosis: Dyspnea, Second trimester Instructions: ED Dyspnea Shortness of Breath Referrals: Katerine Mcnulty MD [STAFF PHYSICIAN] - (Call for appointment to be seen within the next week)
[2018-09-27] MEDS: Albuterol 2.5 MG/3 ML VIAL.NEB. INHALATION (04:37)
[2018-09-27 04:45] LABS: Absolute Lymphocyte Count 1.73 X10^3/ul (0.83-4.51); Absolute Neutrophil Count 8.1 X10^3/uL (2.0-7.7); Basophil# 0.03 X10^3/uL; Basophil% 0.3 % (0-1); Eosinophil# 0.07 X10^3/uL; Eosinophils% 0.6 % (0-5); Hematocrit 28.7 % (37-47); Hemoglobin 9.5 g/dl (12.0-15.0); Lymphocyte # 1.73 X10^3/ul (4.0); Lymphocyte % 15.6 % (19-41); Mean Corp Hgb Conc 33.1 g/gl (32-36); Mean Corpuscular Hgb 29.7 pg (27.0-32.0); Mean Corpuscular Volume 89.7 fL (81-99); Mean Platelet Vol. 9.6 fl (6.2-12.0); Monocyte# 0.99 X10^3/uL; Monocyte% 8.9 % (0-10); Neutrophil # 8.05 X10^3/uL (2.7-7.7); Neutrophil % 72.4 % (47-70); Platelet Count 301 K/mm3 (150-450); RBC Distribution Width CV 14.7 % (11.6-14.6); RBC Distribution Width SD 46.8 fl (35.1-43.9); White Blood Count 11.1 K/mm3 (4.4-11.0)
[2018-09-27 04:50] LABS: Anion Gap 11 (5-15); BUN 7 mg/dL (7-18); BUN/Creat Ratio 13.1 RATIO (10-20); Calcium,Total 8.4 mg/dL (8.5-10.1); Chloride 107 mmol/L (98-107); Creatinine, Serum 0.53 mg/dL (0.55-1.02); EST Glomerular Filtration Rate 155 mL/min (>60); Est Glom Filt Rate - Afr Amer 188 mL/min (>60); Estimated Creatinine Clearance 146.21 ml/min; Glucose 79 mg/dL (74-106); Potassium 3.6 mmol/L (3.5-5.1); Sodium Level 140 mmol/L (136-145)
--- NOTE | 2018-09-27 04:50 | RAD_ITS ---
STUDY: X-RAY CHEST REASON FOR EXAM: Female, 18 years old. Dyspnea TECHNIQUE: Frontal and lateral views of the chest. COMPARISON: None. FINDINGS: The lungs are clear and expanded. There is no demonstrated pleural abnormality. Normal size heart. Normal mediastinum and zion. Normal visualized pulmonary arteries. Normal visualized aortic arch and descending thoracic aorta. Normal visualized thoracic spine. Normal visualized ribs, clavicles, and shoulders. There is no demonstrated abnormality of the visualized soft tissue structures of the upper abdomen. RAD/Chest PA and Lateral IMPRESSION: Normal x-ray examination of the chest. Electronically Signed: Graham Griffith MD at 5:39 EST Tel , Service support ,
[2018-09-27 04:51] LABS: POSITIVE COUNT YES; POSITIVE DIFFERENTIAL NO; POSITIVE MORPHOLOGY YES
[2018-09-27 05:00] LABS: D-Dimer Quantitative (DVT/PE) 1.01 FEU/ug/m (0.27-0.49)
--- NOTE | 2018-09-27 05:02 | ED.RN ---
DR GERBER NOTIFIED OF DDIMER RESULTS
--- NOTE | 2018-09-27 05:13 | CT_ITS ---
STUDY: CTA CHEST REASON FOR EXAM: Female, 18 years old. Shortness of breath and elevated d-dimer. RADIATION DOSAGE (If Supplied By Facility): CTDIvol = ( 13.29 ) mGy, DLP = ( 449.98 ) mGycm TECHNIQUE: The examination was performed with the intravenous administration of 100 ml of Isovue 370 contrast material. Post-processing of the angiographic images was performed, with multiplanar reformation and 3D reconstruction. Individualized dose optimization techniques were used for this CT. COMPARISON: Prior comparison studies are not available for review at this time. FINDINGS: There is limited enhancement of the main pulmonary artery and right and left pulmonary arteries. There is limited enhancement of the bilateral peripheral pulmonary arteries. There is no demonstrated large or central pulmonary embolism. There is prominence of the main pulmonary arteries without peripheral pulmonary vascular congestion. Normal thoracic aorta and visualized great vessels. There is no demonstrated aortic dissection. Normal heart and pericardium. Normal mediastinum. Normal hilar regions. Normal visualized trachea and bronchi. The lungs are well expanded. Normal pulmonary parenchyma. Normal pleura. Normal chest wall structures. Normal osseous structures. Normal visualized upper abdomen. CT/CTA Chest W/WO Contrast IMPRESSION: 1. No CTA demonstrated large or central pulmonary embolism or arterial dissection. 2. There is limited enhancement of segmental pulmonary arteries and therefore segmental pulmonary emboli are not excluded. Electronically Signed: Zehra Brown MD at 6:47 EST , Service support ,
[2018-09-27 10:57] LABS: Pathologist Review Reviewed
== END 2018-09-27 07:27 | disposition home or self-care (01) ==
PROVIDERS: Emergency Provider Emergency Medicine
DX: O99.89 Other specified diseases and conditions complicating pregnancy, childbirth and the puerperium (principal); R06.02 Shortness of breath; O99.282 Endocrine, nutritional and metabolic diseases complicating pregnancy, second trimester; E05.00 Thyrotoxicosis with diffuse goiter without thyrotoxic crisis or storm; O99.332 Smoking (tobacco) complicating pregnancy, second trimester; F17.200 Nicotine dependence, unspecified, uncomplicated; Z3A.24 24 weeks gestation of pregnancy
CPT/HCPCS: 71046; 71275; 80048; 85025; 85379; 93005; 94640; 96360; 99283; J7030; Q9967; A4216

== ENCOUNTER 2018-11-28 13:52 | Emergency (ER) | payer OTHER, MEDICAID, SELFPAY ==
[2018-09-27 02:59] VITALS: BMI 31.4
[2018-11-28 13:53] VITALS: BP 120/66; PULSE 87; RESP 16; TEMP 36.6; O2SAT 99; BMI 31.6
--- NOTE | 2018-11-28 14:52 | RAD_ITS ---
STUDY: X-RAY CHEST REASON FOR EXAM: Female, 18 years old. Cough TECHNIQUE: PA and lateral views of the chest. COMPARISON: 09/27/2018 FINDINGS: The lungs are clear and expanded. There is no demonstrated pleural abnormality. Normal size heart. Normal mediastinum and zion. Normal visualized pulmonary arteries. Normal visualized aortic arch and descending thoracic aorta. Normal visualized thoracic spine. Normal visualized ribs, clavicles, and shoulders. There is no demonstrated abnormality of the visualized soft tissue structures of the upper abdomen. RAD/Chest PA and Lateral IMPRESSION: Normal x-ray examination of the chest. Electronically Signed: Scot Hendricks MD at 16:17 EST , Service support ,
--- NOTE | 2018-11-28 14:54 | ED.VISSUMM ---
- ER Visit Summary Date of Service: 11/28/18 Chief Complaint: Cough History of Present Illness: The patient is a 18 F currently is at 33 weeks. She is Ab1 with having a miscarriage. She is a history of Graves' disease but currently is not taking any thyroid medication. She has had a thyroidectomy. Subjective fever. No chest pain. No hemoptysis. Physical Examination: Young healthy female no acute distress vital signs are stable afebrile pulse ox 99% room air no signs of hypoxia. She is in no distress. HEENT exam clear rhinorrhea. Swollen turbinates. TMs normal. Posterior pharynx moist and pink. No erythema or exudate. No trouble swallowing or breathing. No stridor or drooling. Neck nontender no lymphadenopathy. Lungs clear to auscultation bilaterally. No rales, rhonchi dry cough. Heart regular rhythm no murmur. Abdomen gravid uterus nontender. Normal bowel sounds no peritoneal signs. Extremities moving all 4. Calves nontender without edema or cords. Neurologically awake alert with no focal motor deficits. Back nontender. Test Results: Chest x-ray 2 views were done patient was shielded due to . Shows no acute abnormality. Emergency Department Course and Treatment: Repeat exam doing well at 1606. Treatment Plan: Treat as a viral illness. Plenty of fluids and rest. Follow-up if not improving. Disposition: Discharge Impression: Viral URI. Third trimester This note was generated with [employer] dictation software. It may contain incorrect words, spelling, and punctuation that were not noted in review of the chart prior to signing ED Disposition - Plan for ED Patient: Disposition: Home or Assisted Living Instructions: ED Upper Resp Infec No Abx Tx Referrals: Christine Mancia MD [STAFF PHYSICIAN] - 1 Week if not improving Additional Instructions: Plenty of fluids and rest. Tylenol as needed for fever. Follow-up with CREDIT PORTFOLIO MANAGER as needed.
--- NOTE | 2018-11-28 14:57 | ED.DCSUM_ITS ---
- ER Visit Summary Date of Service: 11/28/18 Chief Complaint: Cough History of Present Illness: The patient is a 18 F currently is at 33 weeks. She is Ab1 with having a miscarriage. She is a history of Graves' disease but currently is not taking any thyroid medication. She has had a thyroidectomy. Subjective fever. No chest pain. No hemoptysis. Physical Examination: Young healthy female no acute distress vital signs are stable afebrile pulse ox 99% room air no signs of hypoxia. She is in no distress. HEENT exam clear rhinorrhea. Swollen turbinates. TMs normal. Posterior pharynx moist and pink. No erythema or exudate. No trouble swallowing or breathing. No stridor or drooling. Neck nontender no lymphadenopathy. Lungs clear to auscultation bilaterally. No rales, rhonchi dry cough. Heart regular rhythm no murmur. Abdomen gravid uterus nontender. Normal bowel sounds no peritoneal signs. Extremities moving all 4. Calves nontender without edema or cords. Neurologically awake alert with no focal motor deficits. Back nontender. Test Results: Chest x-ray 2 views were done patient was shielded due to . Shows no acute abnormality. Emergency Department Course and Treatment: Repeat exam doing well at 1606. Treatment Plan: Treat as a viral illness. Plenty of fluids and rest. Follow-up if not improving. Disposition: Discharge Impression: Viral URI. Third trimester This note was generated with [employer] dictation software. It may contain incorrect words, spelling, and punctuation that were not noted in review of the chart prior to signing ED Disposition - Plan for ED Patient: Disposition: Home or Assisted Living Instructions: ED Upper Resp Infec No Abx Tx Referrals: Christine Mancia MD [STAFF PHYSICIAN] - 1 Week if not improving Additional Instructions: Plenty of fluids and rest. Tylenol as needed for fever. Follow-up with ENTRY LEVEL BUSINESS ANALYST as needed.
--- NOTE | 2018-11-28 15:00 | DCINST.ED_ITS ---
ED Disposition - Plan for ED Patient: Disposition: Home or Assisted Living Instructions: ED Upper Resp Infec No Abx Tx Referrals: Christine Mancia MD [STAFF PHYSICIAN] - 1 Week if not improving Additional Instructions: Plenty of fluids and rest. Tylenol as needed for fever. Follow-up with SUPERVISOR DISPLAY FABRICATION as needed.
[2018-11-28 16:16] VITALS: BP 95/51; PULSE 91; RESP 16; O2SAT 99
== END 2018-11-28 16:17 | disposition home or self-care (01) ==
PROVIDERS: Emergency Provider Emergency Medicine
DX: O99.89 Other specified diseases and conditions complicating pregnancy, childbirth and the puerperium (principal); J06.9 Acute upper respiratory infection, unspecified; J20.8 Acute bronchitis due to other specified organisms; O99.333 Smoking (tobacco) complicating pregnancy, third trimester; F17.200 Nicotine dependence, unspecified, uncomplicated; Z3A.33 33 weeks gestation of pregnancy
CPT/HCPCS: 71046; 99282

== ENCOUNTER 2018-12-26 22:45 | Outpatient (CLI) | payer MEDICAID, SELFPAY ==
[2018-12-26 23:11] VITALS: BMI 34.0
[2018-12-27 00:43] LABS: Color, Urine Yellow (Yellow); Glucose, Dipstick Normal (Normal); Ketone-Dipstick Negative (Negative); Leukocyte Esterase-Dipstick 500 /ul (Negative); Nitrite-Dipstick Negative (Negative); Occult Blood-Urine 150 /ul (Negative); Protein-Dipstick Negative (Negative); Urine Bilirubin Dipstick Negative (Negative); Urine Clarity Sl. Cloudy (Clear); Urine Urobilinogen Normal (Normal); Urine pH 6.5 (5.0 - 8.0)
--- NOTE | 2018-12-29 09:00 | OB.TRI.HP_ITS ---
- Problem List (1) Back pain affecting Status: Acute (2) False labor Status: Acute History of Present Illness Date of Service: 12/26/18 Was patient seen by the physician?: No Reason For Visit: R/O LABOR Date of Service: 12/26/18 Final GUIDO: 01/15/19 Final GUIDO Source: US <20 weeks Gestational age: 37 Weeks and 4 Days History of Present Illness: Presented to L&D with complaint of back pain and possible contractions. Allergies levothyroxine sodium [From Synthroid] Allergy (Verified 12/26/18 23:13) Other - Pertinent Past Medical History Medical History: Past Medical History (Last Reviewed 08/27/18 @ 12:56 by Fransisca Delarosa) Diabetes Epilepsy Graves disease Surgical History: Past Surgical History (Last Reviewed 08/27/18 @ 12:56 by Fransisca Delarosa) delivery delivered H/O thyroidectomy Laboratory Studies: Laboratory Tests 12/27/18 Range/Units 00:25 Urine Color Yellow (Yellow) Urine Clarity Sl. Cloudy (Clear) Urine pH 6.5 (5.0 - 8.0) Ur Specific [place] 1.010 (1.002-1.030) Urine Protein Negative (Negative) mg/dl Urine Glucose (UA) Normal (Normal) mg/dl Urine Ketones Negative (Negative) mg/dl Urine Occult Blood 150 H (Negative) /ul Urine Nitrite Negative (Negative) Urine Bilirubin Negative (Negative) mg/dL Urine Urobilinogen Normal (Normal) mg/dl Ur Leukocyte Esterase 500 H (Negative) /ul NST - FHR Rate Baby A Baseline: 155 Variability:: Moderate Accelerations:: 15 x 15 Decelerations:: Variable NST Reactive:: Yes Uterine Activity:: Irregular
== END 2018-12-27 01:30 | disposition home or self-care (01) ==
LOC: WPOUT 23:04 → WP 23:05
PROVIDERS: Advanced Practice Midwife; Visit Provider Obstetrics & Gynecology
DX: O47.1 False labor at or after 37 completed weeks of gestation (principal); O26.893 Other specified pregnancy related conditions, third trimester; M54.9 Dorsalgia, unspecified; O99.283 Endocrine, nutritional and metabolic diseases complicating pregnancy, third trimester; E05.00 Thyrotoxicosis with diffuse goiter without thyrotoxic crisis or storm; Z3A.37 37 weeks gestation of pregnancy
CPT/HCPCS: 59025; 59050; 81002; 99218; G0378

== ENCOUNTER 2019-01-11 06:00 | Inpatient (IN) | payer MEDICAID, SELFPAY ==
[2019-01-11] VITALS (26 sets, daily range): BP systolic 81–107; BP diastolic 43–73; PULSE 64–88; RESP 14–18; TEMP 36.3–36.9; O2SAT 16–98; BMI 33.0
[2019-01-11] MEDS: Lactated Ringers 1,000 ML 999 ML IV (06:30)
[2019-01-11] MEDS: Sodium Citrate/Citric Acid 30 ML UDC PO (07:04)
[2019-01-11] MEDS: Cefazolin 2 GM in 0.9% Normal Saline 100 ML IV (07:05)
[2019-01-11 07:20] LABS: Absolute Lymphocyte Count 2.07 X10^3/ul (0.83-4.51); Absolute Neutrophil Count 6.7 X10^3/uL (2.0-7.7); Basophil# 0.01 X10^3/uL; Basophil% 0.1 % (0-1); Eosinophil# 0.04 X10^3/uL; Eosinophils% 0.4 % (0-5); Hematocrit 32.5 % (37-47); Hemoglobin 10.1 g/dl (12.0-15.0); Lymphocyte # 2.07 X10^3/ul (4.0); Lymphocyte % 22.2 % (19-41); Mean Corp Hgb Conc 31.1 g/gl (32-36); Mean Corpuscular Hgb 26.7 pg (27.0-32.0); Mean Platelet Vol. 10.6 fl (6.2-12.0); Monocyte# 0.44 X10^3/uL; Monocyte% 4.7 % (0-10); Neutrophil # 6.71 X10^3/uL (2.7-7.7); Platelet Count 346 K/mm3 (150-450); RBC Distribution Width CV 20.8 % (11.6-14.6); RBC Distribution Width SD 61.9 fl (35.1-43.9); Red Blood Count 3.78 M/mm3 (4.2-5.4); White Blood Count 9.3 K/mm3 (4.4-11.0)
[2019-01-11 07:25] LABS: Amphetamine Urine VISTA NEGATIVE (<1000 ng/mL); Barbiturate Urine VISTA NEGATIVE (< 200 ng/mL); Benzodiazepine Urine VISTA NEGATIVE (< 200 ng/mL); Cocaine Urine VISTA NEGATIVE (< 300 ng/mL); Differential Indicated SCAN CRITERIA MET; Ecstacy Urine VISTA NEGATIVE (< 500 ng/mL); Methadone Urine VISTA NEGATIVE (< 300 ng/mL); PCP Urine VISTA NEGATIVE (< 25 ng/mL); POSITIVE COUNT NO; POSITIVE DIFFERENTIAL NO; POSITIVE MORPHOLOGY YES; THC Urine VISTA POSITIVE (< 50 ng/mL); Vista UDS pH Range 7
[2019-01-11 07:31] LABS: Bedside Glucose 95 mg/dL (70-110)
--- NOTE | 2019-01-11 07:34 | PCM.HP.OB ---
History Date of Admission: 01/11/19 Final GUIDO: 01/15/19 Final GUIDO Source: US <20 weeks Gestational age: 39 Weeks and 3 Days History of this : This is a 18 year-old, G [], P [], at 39 weeks gestational age. Medical History: Medical History (Last Updated 01/11/19 @ 07:37 by Adi Sapp) Hypothyroid E03.9 Seizure R56.9 Reported by patient. No records documenting actual seizure actvity. Patient not compliant with seeing neurology. Surgical History: Surgical History (Last Reviewed 08/27/18 @ 12:56 by Fransisca Delarosa) delivery delivered O82 H/O thyroidectomy Z98.890 Allergies levothyroxine sodium [From Synthroid] Allergy (Mild, Verified 01/11/19 06:57) Other itching and zombified feeling Home Medications: Home Medications Prenatabs FA 1 tab PO DAILY 05/22/18 Thyroid [[place] Thyroid] 60 mg PO DAILY 12/26/18 Smoking Status: Current every day smoker Substance Use Type: Marijuana History Past Pregnancies: Past Pregnancies Delivery Date Name GA/Weeks Outcome Route Weight Gender Labor Length Anesthesia Delivery Location Provider FOB Labs: See [facility] H[facility]P Physical Exam General: Alert, Oriented x3 Abdomen: Soft, Non Tender, Non-Distended, Gravid Neurological: Cranial nerves II-XII grossly intact KENO MANAGER: Normal external genitalia Estimated gestational size: Appropriate for gestational size Assessment/Plan All Active Problems (Last Reviewed 08/27/18 @ 12:56 by Fransisca Delarosa) Graves disease (Resolved) Back pain affecting (Acute) False labor (Acute) Anemia during (Acute) (Acute) History of marijuana use (Acute) Tobacco smoking affecting (Acute) History of abnormality in previous , currently (Acute) Family history of spina bifida (Acute) Supervision of high-risk (Acute) Epilepsy (Acute) Hypothyroidism affecting (Acute) History of delivery affecting (Acute) Diabetes in (Ruled-out) This is a 18 year-old, female at 39&3 weeks gestational age. Admit to L&D Plan for repeat section Informed consent signed at pre-op visit Pre-op ancef ordered Plan for PP social work consult
--- NOTE | 2019-01-11 07:38 | HP.PCM_ITS ---
History Date of Admission: 01/11/19 Final GUIDO: 01/15/19 Final GUIDO Source: US <20 weeks Gestational age: 39 Weeks and 3 Days History of this : This is a 18 year-old, G [], P [], at 39 weeks gestational age. Medical History: Medical History (Last Updated 01/11/19 @ 07:37 by Adi Sapp) Hypothyroid E03.9 Seizure R56.9 Reported by patient. No records documenting actual seizure actvity. Patient not compliant with seeing neurology. Surgical History: Surgical History (Last Reviewed 08/27/18 @ 12:56 by Fransisca Delarosa) delivery delivered O82 H/O thyroidectomy Z98.890 Allergies levothyroxine sodium [From Synthroid] Allergy (Mild, Verified 01/11/19 06:57) Other itching and zombified feeling Home Medications: Home Medications Prenatabs FA 1 tab PO DAILY 05/22/18 Thyroid [[place] Thyroid] 60 mg PO DAILY 12/26/18 Smoking Status: Current every day smoker Substance Use Type: Marijuana History Past Pregnancies: Past Pregnancies Delivery Date Name GA/Weeks Outcome Route Weight Gender Labor Length Anesthesia Delivery Location Provider FOB Labs: See [facility] H[facility]P Physical Exam General: Alert, Oriented x3 Abdomen: Soft, Non Tender, Non-Distended, Gravid Neurological: Cranial nerves II-XII grossly intact SKATING CARHOP: Normal external genitalia Estimated gestational size: Appropriate for gestational size Assessment/Plan All Active Problems (Last Reviewed 08/27/18 @ 12:56 by Fransisca Delarosa) Graves disease (Resolved) Back pain affecting (Acute) False labor (Acute) Anemia during (Acute) (Acute) History of marijuana use (Acute) Tobacco smoking affecting (Acute) History of abnormality in previous , currently (Acute) Family history of spina bifida (Acute) Supervision of high-risk (Acute) Epilepsy (Acute) Hypothyroidism affecting (Acute) History of delivery affecting (Acute) Diabetes in (Ruled-out) This is a 18 year-old, female at 39&3 weeks gestational age. Admit to L&D Plan for repeat section Informed consent signed at pre-op visit Pre-op ancef ordered Plan for PP social work consult
[2019-01-11] MEDS: Oxytocin 30 units/NS 500 ml 30 UNITS/500 ML IV.SOLN 167 UNITS IV (08:06)
--- NOTE | 2019-01-11 08:43 | PCM.OPRPT ---
Report of Operation Date of Procedure: 01/11/19 Pre-Operative Diagnosis: (1) Prior section (2) Uncontrolled maternal hypothyroidism Post-Operative Diagnosis: Same Description of Surgical Findings:: Normal uterus & adnexa kiln mechanic: Ana Perales Type of Anesthesia:: Spinal Delivery Classification: Scheduled Final GUIDO: 01/15/19 Gestational age: 39 Weeks and 3 Days Indications for : Repeat Elective Description of Procedure: Patient taken to OR where she was prepped and draped in normal sterile fashion in a dorsal lithotomy position with a leftward tilt. After ensuring adequacy of anesthesia the Pfannensteil skin incision was made and carried through to the underlying fascia w/ a bovie. The fascia was incised in the midline and carried laterally with the Yee scissors. The rectus muscles were in the midline and the peritoneum was entered sharply. The bladder flap was dissected down with the Metzenbaum scissors and blunt dissection. The uterine incision was made with the scalpel and extended laterally w/ blunt dissection. The fetus was vertex and the head was brought to the incision in the flexed position. With good fundal pressure the head delivered easily. Shoulders & body delivered easily. The cord was clamped and cut after 1 minute delay and the handed off to waiting RN. The placenta was delivered w/ gentle traction and fundal massage and the uterus was exteriorized and cleared of all clots and debris. The uterine incision was closed with 1 vicryl suture in a running locked fashion. 3-0 vicryl was used to obtain hemostasis of the blader flap & reapproximate it to the lower uterine incision. The uterus was returned to the peritoneal cavity. Pelvis was irrigated and cleared of all clots & debris. The uterine incision was reexamined and found to be hemostatic. There was a stable hematoma on the left side of the uterine incision. Some chiquita was placed over the uterine incision due to the denuded areas. A figure of eight suture was placed to control bleeding on the muscle and chiquita was placed. Excellent hemostasis was obtained. The fascia was closed with looped PDS suture in a running standard fashion. The subcutaneous tissue was examined, any bleeding bovie cauterized. The subcutaneous tissue was reapproximated with 3-0 vicryl suture. The skin was closed in a subcuticular fashion by the MED AIDE with me present in the labor and delivery suite. I performed the remainder of the procedure w/ assistance. Amniotic Membrane Rupture Type: Artificial Amniotic Fluid Description: Lightly stained meconium Placenta [facility]position: [facility] Drain: Wilcox to straight drain Fluids Replaced: 1200ml Cord Entanglement: None Cord Vessel Description: 3 Vessels Esitmated Blood Loss (ml): 700ml Infant Gender: Female (1 minute): 8 (5 minute): 9 Delayed cord clamping: Yes Pre-op Antibiotic Given: Ancef 2 grams IV x1 - Admit VTE Documentation VTE Present on Admission: No
--- NOTE | 2019-01-11 08:52 | OP.PCM_ITS ---
Report of Operation Date of Procedure: 01/11/19 Pre-Operative Diagnosis: (1) Prior section (2) Uncontrolled maternal hypothyroidism Post-Operative Diagnosis: Same Description of Surgical Findings:: Normal uterus & adnexa director account management: Ana Perales Type of Anesthesia:: Spinal Delivery Classification: Scheduled Final GUIDO: 01/15/19 Gestational age: 39 Weeks and 3 Days Indications for : Repeat Elective Description of Procedure: Patient taken to OR where she was prepped and draped in normal sterile fashion in a dorsal lithotomy position with a leftward tilt. After ensuring adequacy of anesthesia the Pfannensteil skin incision was made and carried through to the underlying fascia w/ a bovie. The fascia was incised in the midline and carried laterally with the Yee scissors. The rectus muscles were in the m idline and the peritoneum was entered sharply. The bladder flap was dissected down with the Metzenbaum scissors and blunt dissection. The uterine incision was made with the scalpel and extended laterally w/ blunt dissection. The fetus was vertex and the head was brought to the incision in the flexed position. With good fundal pressure the head delivered easily. Shoulders & body delivered easily. The cord was clamped and cut after 1 minute delay and the handed off to waiting RN. The placenta was delivered w/ gentle traction and fundal massage and the uterus was exteriorized and cleared of all clots and debris. The uterine incision was closed with 1 vicryl suture in a running locked fashion. 3-0 vicryl was used to obtain hemostasis of the blader flap & reapproximate it to the lower uterine incision. The uterus was returned to the peritoneal cavity. Pelvis was irrigated and cleared of all clots & debris. The uterine incision was reexamined and found to be hemostatic. There was a stable hematoma on the left side of the uterine incision. Some chiquita was placed over the uterine incision due to the denuded areas. A figure of eight suture was placed to control bleeding on the muscle and chiquita was placed. Excellent hemostasis was obtained. The fascia was closed with looped PDS suture in a running standard fashion. The subcutaneous tissue was examined, any bleeding bovie cauterized. The subcutaneous tissue was reapproximated with 3-0 vicryl suture. The skin was closed in a subcuticular fashion by the EMPLOYEE COMMUNICATIONS MANAGER with me present in the labor and delivery suite. I performed the remainder of the procedure w/ assistance. Amniotic Membrane Rupture Type: Artificial Amniotic Fluid Description: Lightly stained meconium Placenta Disposition: [facility] Drain: Wilcox to straight drain Fluids Replaced: 1200ml Cord Entanglement: None Cord Vessel Description: 3 Vessels Esitmated Blood Loss (ml): 700ml Gender: Female (1 minute): 8 (5 minute): 9 Delayed cord clamping: Yes Pre-op Antibiotic Given: Ancef 2 grams IV x1 - Admit VTE Documentation VTE Present on Admission: No
[2019-01-11] MEDS: Lactated Ringers 1,000 ML 100 ML IV ×2 (09:15→18:29)
[2019-01-11 10:06] LABS: Bedside Glucose 104 mg/dL (70-110)
[2019-01-11] MEDS: Ketorolac 30 MG/ML Syringe IV ×2 (15:08→21:20)
[2019-01-12] VITALS (8 sets, daily range): BP systolic 95–121; BP diastolic 48–79; PULSE 68–85; RESP 16–18; TEMP 36.6–37; O2SAT 97–99
[2019-01-12] MEDS: Ketorolac 30 MG/ML Syringe IV ×4 (04:18→20:22)
[2019-01-12 05:12] LABS: Hematocrit 28.7 % (37-47); Mean Corp Hgb Conc 31.4 g/gl (32-36); Mean Corpuscular Hgb 27.4 pg (27.0-32.0); Mean Corpuscular Volume 87.2 fL (81-99); Mean Platelet Vol. 10.1 fl (6.2-12.0); Platelet Count 285 K/mm3 (150-450); RBC Distribution Width CV 20.6 % (11.6-14.6); RBC Distribution Width SD 63.8 fl (35.1-43.9); Red Blood Count 3.29 M/mm3 (4.2-5.4); White Blood Count 9.9 K/mm3 (4.4-11.0)
[2019-01-12 05:19] LABS: Scan Indicated on CBC? Y/N YES- FLAGS NOTED
[2019-01-12 05:39] LABS: Differential Comment SCANNED
[2019-01-12] MEDS: Thyroid 60 MG Tablet PO (06:14)
[2019-01-12 06:41] LABS: Bedside Glucose 106 mg/dL (70-110)
[2019-01-12] MEDS: 0.9% Saline Lock 10 ML Syringe IV ×4 (09:04→20:22)
[2019-01-12] MEDS: oxyCODONE 5 MG Tablet PO ×2 (12:29→22:52)
--- NOTE | 2019-01-12 12:29 | PCM.PN.OB ---
Subjective: Doing well per patient and nursing staff. Ambulating and taking PO without difficulty. Wilcox out and urinating. Passing flatus and feels like she needs to have BM. Denies any chest pain, SOB, increased vaginal bleeding or clots. Up out of bed to couch. Pain controlled. - Physical Exam General: Alert, Oriented x3, Cooperative HEENT: Atraumatic, Normocephalic Neck: Trachea Midline Lungs: Clear to auscultation, Normal air movement, No rhonchi, No wheeze Cardiovascular: Regular rate, Regular Rhythm, No murmurs Abdomen: Bowel Sounds Present, Soft, - - appropriately tender. Fundus firm 3 below U. Dressing dry and intact, no drainage. Extremities: No edema Psych/Mental Status: Normal Affect, Appropriate Vital Signs Temp Pulse Resp BP Pulse Ox 97.9 F 80 18 110/58 L 97 01/12/19 08:00 01/12/19 08:00 01/12/19 08:00 01/12/19 07:30 01/12/19 08:00 Oxygen Delivery Method Room Air Weight: 192 lb 10.944 oz Body Mass Index (BMI) 33.0 Finger Stick Blood Glucose 110 Intake and Output for Last 24 Hours 01/10/19 01/11/19 01/12/19 23:59 23:59 23:59 Intake Total 7727 / 7727 1217 / 1217 Output Total 3900 / 3900 1600 / 1600 Balance 3827 / 3827 -383 / -383 Laboratory Tests Past 24 Hrs 01/12/19 04:55 WBC 9.9 RBC 3.29 L Hgb 9.0 L Hct 28.7 L MCV 87.2 MCH 27.4 MCHC 31.4 L RDW 20.6 H RDW Differential 63.8 H Plt Count 285 MPV 10.1 Differential Comment SCANNED POC Glucose 01/12/19 06:19 POC Glucose 106 Medical Necessity - Tobacco Use Smoking Status: Current every day smoker Assessment/Plan All Active Problems (Last Updated 01/11/19 @ 07:37 by Adi Sapp) Diabetes (Acute) Graves disease (Acute) History of delivery affecting (Acute) Hypothyroidism affecting (Acute) Epilepsy (Acute) Supervision of high-risk (Acute) Family history of spina bifida (Acute) History of abnormality in previous , currently (Acute) Tobacco smoking affecting (Acute) History of marijuana use (Acute) (Acute) Anemia during (Acute) Graves disease (Resolved) Back pain affecting (Acute) False labor (Acute) Diabetes in (Ruled-out) A: POD #1 RLTCS Blood loss anemia P: 1) Routine postop and orders 2) Planning D/C home tomorrow. 3) Pain management. 4) Hgb decreased to 9. Will start Ferrous Sulfate 325mg PO BID. May take stool softener.
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
[2019-01-12] MEDS: Ferrous Sulfate 325 MG Tablet PO (16:58)
[2019-01-12] MEDS: Senna/Docusate Sodium 1 Tablet PO (22:52)
[2019-01-13] MEDS: Ketorolac 30 MG/ML Syringe IV ×2 (02:32→08:21)
[2019-01-13] MEDS: 0.9% Saline Lock 10 ML Syringe IV ×2 (02:32→08:21)
[2019-01-13 02:37] VITALS: BP 114/70; PULSE 80; RESP 16; TEMP 36.2; O2SAT 94
[2019-01-13] MEDS: Thyroid 60 MG Tablet PO (06:12)
[2019-01-13 08:07] VITALS: BP 122/78; PULSE 82; RESP 18; TEMP 36.5; O2SAT 98
--- NOTE | 2019-01-13 08:33 | DCINST_ITS ---
Discharge Diet: No Restrictions Discharge Activity: May not drive while taking narcotic pain medications., May Shower May resume sexual activity in: 6 weeks Weight Bearing Status: Weight bearing as tolerated Call your doctor if your incision/area has: Continuous Slow Oozing, Sudden Increased Bleeding, Increased Pain/ Swelling, Increased Redness, Foul Smelling Discharge, Swelling at the incision site Call your doctor if you observe: Fever of 101 or Higher Additional Instructions: If you experience any of the following, contact your healthcare provider. * Bleeding that soaks a pad every hour for 2 hours * Fever 100.4 or higher * Unrelieved incision or abdominal pain * Swelling, redness, discharge or bleeding from your incision or episiotomy site * Your incision begins to separate * Problems urinating (including inability to urinate or burning while urinating). * Visual changes * Severe headache * Flu-like symptoms * Pain or redness in one of both of your breasts * Pain, warmth, tenderness or swelling in your legs, especially the calf area * Frequent nausea and vomiting * Symptoms of depression or anxiety If you experience any of the following, call 911 or go to the nearest Emergency Room. * Chest pain * Problems breathing * Seizure activity * Partial or complete paralysis of a body part, slurred speech, weakness or drooping of the face, or a sudden inability to walk or hold your balance Allergies/Adverse Reactions: Allergies levothyroxine sodium [From Synthroid] Allergy (Mild, Verified 01/11/19 06:57) Other itching and zombified feeling Medications to take at Discharge Prenatabs FA 1 tab PO DAILY 05/22/18 Thyroid [[place] Thyroid] 60 mg PO DAILY 12/26/18 Acetaminophen [Tylenol] 1,000 mg PO Q8H PRN #60 tab 01/13/19 Docusate Sodium [Colace] 100 mg PO BID PRN PRN #60 cap 01/13/19 Ferrous Sulfate 325 mg PO DAILY #60 tab 01/13/19 Ibuprofen [Motrin] 600 mg PO Q6H PRN PRN #40 tab 01/13/19 Oxycodone [Oxyir] 5 - 10 mg PO Q6H PRN PRN 7 Days #28 tab 01/13/19 Thyroid [[place] Thyroid] 90 mg PO DAILY #30 tab 01/13/19 The following prescriptions were given: Ibuprofen [Motrin] 600 mg PO Q6H PRN PRN #40 tab PRN Reason: Mild Pain (1-310) Oxycodone [Oxyir] 5 - 10 mg PO Q6H PRN PRN 7 Days #28 tab PRN Reason: Mod-Severe Pain (4-1010) Acetaminophen [Tylenol] 1,000 mg PO Q8H PRN #60 tab PRN Reason: Mild Pain (1-310) Docusate Sodium [Colace] 100 mg PO BID PRN PRN #60 cap PRN Reason: Constipation Ferrous Sulfate 325 mg PO DAILY #60 tab Thyroid [[place] Thyroid] 90 mg PO DAILY #30 tab Follow-Up: Call to make an appointment with your doctor for an incision check in 1-2 weeks. You will also need a 6 week post- follow up appointment. Test results from this visit will be discussed in further detail at your follow- up appointment, if applicable. Primary Care Physician: Care Physician,No Primary [Primary Care Provider] -
--- NOTE | 2019-01-13 08:33 | PCM.PN.OB ---
Subjective: Patient denies complaints - Physical Exam General: Alert, Oriented x3 Abdomen: Soft, Non Tender, Non-Distended - ff mid & below um; incision - bandage c/d/i Extremities: No Calf Tenderness Vital Signs Temp Pulse Resp BP Pulse Ox 97.7 F L 82 18 122/78 H 98 01/13/19 08:07 01/13/19 08:07 01/13/19 08:07 01/13/19 08:07 01/13/19 08:07 Oxygen Delivery Method Room Air Weight: 192 lb 10.944 oz Body Mass Index (BMI) 33.0 Finger Stick Blood Glucose 110 Intake and Output for Last 24 Hours 01/11/19 01/12/19 01/13/19 23:59 23:59 23:59 Intake Total 7727 / 7727 1217 / 1217 Output Total 3900 / 3900 2650 / 2650 Balance 3827 / 3827 -1433 / -1433 Medical Necessity - Tobacco Use Smoking Status: Current every day smoker Assessment/Plan All Active Problems (Last Updated 01/11/19 @ 07:37 by Adi Sapp) Diabetes (Acute) Graves disease (Acute) History of delivery affecting (Acute) Hypothyroidism affecting (Acute) Epilepsy (Acute) Supervision of high-risk (Acute) Family history of spina bifida (Acute) History of abnormality in previous , currently (Acute) Tobacco smoking affecting (Acute) History of marijuana use (Acute) (Acute) Anemia during (Acute) Graves disease (Resolved) Back pain affecting (Acute) False labor (Acute) Diabetes in (Ruled-out) POD#2 D/c home per patient request Anemia - rx iron Hypothryoid - increase amour thyroid as recommended by [facility] endo F/u for 2wk PP check Will place nexplanon prior to discharge or at 2wk check
--- NOTE | 2019-01-18 11:23 | NURSING ---
Follow up phone call done . Doing well had some questions about cord care. Has seen wic but not yet seen baby doctor. Encouraged to get into baby doctor for check .
== END 2019-01-13 10:30 | disposition home or self-care (01) | DRG 540 ==
PROVIDERS: Admitting Provider Obstetrics & Gynecology; Referring Provider Obstetrics & Gynecology; Visit Provider Obstetrics & Gynecology
PROC: 10D00Z1 Extraction of Products of Conception, Low, Open Approach (ICD-10-PCS; CPT 59514; principal; 2019-01-11 07:15)
DX: O34.211 Maternal care for low transverse scar from previous cesarean delivery (principal); O77.0 Labor and delivery complicated by meconium in amniotic fluid; O99.284 Endocrine, nutritional and metabolic diseases complicating childbirth; E03.8 Other specified hypothyroidism; O99.334 Smoking (tobacco) complicating childbirth; F17.210 Nicotine dependence, cigarettes, uncomplicated; O99.324 Drug use complicating childbirth; F12.90 Cannabis use, unspecified, uncomplicated; O99.03 Anemia complicating the puerperium; D62 Acute posthemorrhagic anemia; O99.353 Diseases of the nervous system complicating pregnancy, third trimester; G40.909 Epilepsy, unspecified, not intractable, without status epilepticus; Z3A.39 39 weeks gestation of pregnancy; Z37.0 Single live birth
CPT/HCPCS: 80307; 82962; 85025; 85027; 86850; 86900; 99218; J7120; A4216; G0378

== ENCOUNTER 2019-04-07 01:41 | Emergency (ER) | payer MEDICAID, SELFPAY ==
[2019-01-11 06:56] VITALS: BMI 33.0
[2019-04-07 01:43] VITALS: BP 136/70; PULSE 100; RESP 18; TEMP 36.7; O2SAT 96; BMI 28.5
--- NOTE | 2019-04-07 01:51 | ED.VISSUMM ---
- ER Visit Summary Date of Service: 04/07/19 Chief Complaint: Pelvic pain, vaginal bleeding History of Present Illness: The patient is a 18 F who has pelvic pain and vaginal bleeding. Started today. She took a test and it was positive today. She had had some vaginal bleeding. She describes it as slightly less than a menstrual cycle. She had some suprapubic cramping as well. Denies any dysuria. She took nothing for this at home. She does have a vaginal delivery back in December. She is O+. Physical Examination: Vital signs reviewed. HEENT exam unremarkable. Heart is regular rate and rhythm without murmurs. Lungs are clear to auscultation. Abdomen is soft and nontender. exam is deferred. Extremities reveal no edema. Skin exam normal. Neurologic exam normal. Test Results: Urinalysis has 25-50 white blood cells and greater than 100 red cells. hCG quantitative is 301. Previous records show the patient is O+ Emergency Department Course and Treatment: The patient does have a UTI will be treated with Keflex. She does have a quantitative of 301. She will need a repeat quant in 2 days. Since this is below 1500 I do not feel she requires an ultrasound at this point. She will follow-up with her [employer]. Treatment Plan: [] Disposition: Discharge Impression: Threatened AB, UTI This note was generated with [employer] dictation software. It may contain incorrect words, spelling, and punctuation that were not noted in review of the chart prior to signing ED Disposition - Plan for ED Patient: Referrals: Care Physician,No Primary [Primary Care Provider] -
[2019-04-07 01:57] LABS: Bacteria 0 SEEN /hpf (None Seen); Mucous, Urine 0 SEEN /hpf (<or=2+)
[2019-04-07 02:01] LABS: Glucose, Dipstick Normal (Normal); Ketone-Dipstick Negative (Negative); Leukocyte Esterase-Dipstick 500 /ul (Negative); Nitrite-Dipstick Negative (Negative); Occult Blood-Urine 250 /ul (Negative); Protein-Dipstick 30 mg/dl (Negative); Urine Bilirubin Dipstick Negative (Negative); Urine Clarity Sl. Cloudy (Clear); Urine Urobilinogen Normal (Normal)
[2019-04-07 02:02] LABS: Color, Urine SEE COMMENT BELOW (Yellow)
[2019-04-07 02:04] LABS: Red Blood Cells-Urine > 100 SEEN /hpf (0-5); Squamous Epithelial Cells - UA 0-5 SEEN /hpf (5-10); White Blood Cells 25-50 SEEN /hpf (0-5)
[2019-04-07 03:06] LABS: hCG Titer Quant., Serum 301 mIU/mL (1-3)
--- NOTE | 2019-04-07 03:12 | ED.DEP ---
ED Disposition - Plan for ED Patient: Disposition: Home or Assisted Living Instructions: POSSIBLE MISCARRIAGE (Threatened ) Prescriptions: Cephalexin [Keflex] 500 mg PO Q12 #14 cap Prescription Printed Referrals: Care Physician,No Primary [Primary Care Provider] -
[2019-04-07] MEDS: Cephalexin 250 MG Capsule 500 MG PO (03:23)
[2019-04-07 03:25] VITALS: BP 132/76; PULSE 83; RESP 14; O2SAT 99
== END 2019-04-07 03:26 | disposition home or self-care (01) ==
PROVIDERS: Emergency Provider Emergency Medicine
DX: O20.0 Threatened abortion (principal); O23.40 Unspecified infection of urinary tract in pregnancy, unspecified trimester; O99.330 Smoking (tobacco) complicating pregnancy, unspecified trimester; F17.200 Nicotine dependence, unspecified, uncomplicated; Z3A.00 Weeks of gestation of pregnancy not specified
CPT/HCPCS: 81001; 84702; 99283

== ENCOUNTER → 2019-04-13 12:14 | Outpatient (CLI) | payer MEDICAID, SELFPAY ==
[2019-04-07 01:43] VITALS: BMI 28.5
[2019-04-13 12:58] LABS: hCG Titer Quant., Serum 407 mIU/mL (1-3)
== END ==
PROVIDERS: Referring Provider Emergency Medicine; Visit Provider Emergency Medicine
DX: O20.0 Threatened abortion (principal); Z3A.00 Weeks of gestation of pregnancy not specified
CPT/HCPCS: 36415; 84702

== ENCOUNTER 2019-06-30 15:27 | Outpatient (REF) | payer SELFPAY | END 2019-06-30 19:30 | disposition home or self-care (01) | LOC: EDREF 15:27 | DX: Z04.41 Encounter for examination and observation following alleged adult rape (principal) ==

== ENCOUNTER 2019-08-20 21:52 | Emergency (ER) | payer MEDICAID, SELFPAY ==
[2019-08-20 21:52] VITALS: BP 118/64; PULSE 93; RESP 16; TEMP 36.9; O2SAT 96; BMI 26.2
--- NOTE | 2019-08-20 22:04 | ED.VIS.GEN ---
History of Present Illness Chief Complaint: Cough Informant: Patient Narrative: She presents with 1 week of cough and congestion she has not been able to smoke as much secondary to her coughing. It started with upper respiratory symptoms and now she feels like it moved into her bronchus. No fever or chills. Past Medical History - Allergies and Home Meds Allergies/Adverse Reactions: Allergies levothyroxine sodium [From Synthroid] Allergy (Mild, Verified 08/20/19 21:53) Other itching and zombified feeling Primary Care Physician: NOT,DEFINED [Primary Care Provider] - Past Medical History: - - Hypothyroidism, does not take any medications Smoking Status: Current every day smoker Review of Systems General: Denies: Fever ENT: Reports: Rhinorrhea, Sore throat Cardiovascular: Denies: Chest pain Respiratory: Reports: Cough, Sputum. Denies: Dyspnea, Dyspnea on exertion Gastrointestinal: Denies: Abdominal pain Skin: Denies: Rash Neurological: Denies: Headache, Weakness Psych: Denies: Depression Hematologic: Denies: Easy bruising Physical Exam Vital Signs/Narrative: Vital Signs Temp Pulse Resp BP Pulse Ox 08/20/19 21:52 98.4 F 93 16 118/64 96 General: Well nourished, Well developed Head: Normocephalic Eyes: Perrl ENT: Moist mucous membranes, - - Rhinorrhea, swollen nasal turbinates. Postnasal drip. Neck: Supple Cardiovascular: Regular rate, Regular rhythm Respiratory: No distress, - - Some bronchial breath sounds Abdomen: Soft Back: Nontender, Normal Inspection Extremities: Nontender Skin: Normal color Neurological: Alert, Oriented x3 Diagnostic/Tx/Re-eval - Medical Decision Making Patient has bronchitis. I will treat her as such. She does not meet criteria for antibiotics. ED Disposition - Plan for ED Patient: Disposition: Home or Assisted Living Diagnosis: Bronchitis Instructions: BRONCHITIS, No Antibiotic (Adult) Prescriptions: Prednisone [Deltasone] 40 mg PO DAILY #8 tab Prescription Printed Referrals: NOT,DEFINED [Primary Care Provider] -
[2019-08-20] MEDS: predniSONE 20 MG Tablet 40 MG PO (22:25)
--- NOTE | 2019-08-20 22:27 | ED.DEP ---
ED Disposition - Plan for ED Patient: Disposition: Home or Assisted Living Diagnosis: Bronchitis Instructions: BRONCHITIS, No Antibiotic (Adult) Prescriptions: Prednisone [Deltasone] 40 mg PO DAILY #8 tab Prescription Printed Referrals: Aniket Bergeron MD [STAFF PHYSICIAN] - 3-5 Days
== END 2019-08-20 22:31 | disposition home or self-care (01) ==
PROVIDERS: Emergency Provider Emergency Medicine
DX: J40 Bronchitis, not specified as acute or chronic (principal); F17.200 Nicotine dependence, unspecified, uncomplicated
CPT/HCPCS: 99283

== ENCOUNTER 2019-11-30 23:03 | Emergency (ER) | payer MEDICAID, SELFPAY ==
[2019-11-30 23:04] VITALS: BP 122/76; PULSE 82; RESP 15; TEMP 36; O2SAT 98; BMI 22.7
--- NOTE | 2019-11-30 23:26 | ED.DCSUM_ITS ---
History of Present Illness Chief Complaint: Cellulitis Informant: Patient Onset: Days Context: Gradual Onset Current Severity: Moderate Maximum Severity: Moderate Narrative: Patient presents with cellulitis of the left maxilla. She states she is first noted a small bug bite lesion last Thursday. The area became more swollen. She was actually admitted to [facility] in [place] for IV clindamycin, IV vancomycin, and ofloxacin eyedrops. Patient states yesterday she did not get any antibiotics through her IV so she became upset last night and signed out AMA. They did not send her home with any antibiotics. Patient does admit the wound is better with the IV antibiotics, but states it has not really changed since she left the hospital yesterday. She was just hoping for some oral ant ibiotics for home. She has not noted fever or chills. She has no vision change out of her left eye. - Past Medical History (1) Hypothyroid Status: Chronic (2) Diabetes Status: Chronic (3) Graves disease Status: Chronic (4) Epilepsy Status: Chronic Comment: neuro consult. no meds. last seizure 07/15 Past Medical History - Allergies and Home Meds Allergies/Adverse Reactions: Allergies levothyroxine sodium [From Synthroid] Allergy (Mild, Verified 11/30/19 23:03) Other itching and zombified feeling Primary Care Physician: Sekou Zhang MD [STAFF PHYSICIAN] - 1 Week if not improving Prior records reviewed: Yes Lives: With Family Smoking Status: Current every day smoker Review of Systems General: Denies: Chills, Fever Eyes: Denies: Visual changes - bilaterally ENT: Reports: - - Left maxillary pain Cardiovascular: Denies: Chest pain Respiratory: Denies: Dyspnea, Cough Gastrointestinal: Denies: Abdominal pain, Nausea, Vomiting, Diarrhea Skin: Reports: Wounds Neurological: Denies: Headache Hematologic: Denies: Easy bruising, Easy bleeding Allergy: Denies: Uticaria Physical Exam Vital Signs/Narrative: Vital Signs Temp Pulse Resp BP Pulse Ox 11/30/19 23:04 96.8 F L 82 15 122/76 H 98 Inital Vital Signs reviewed: Yes General: Well nourished, Well developed Head: Normocephalic Eyes: Perrl, EOMI, - - Mild edema to the left lower eyelid. ENT: - - There is a scabbed wound over the left maxilla with surrounding erythema. Total length is approximately 6 cm x 3 cm wide. There is no palpable abscess. Cardiovascular: Regular rate, Regular rhythm Respiratory: No distress, CTA bilaterally Abdomen: Soft, Nontender Skin: - - As above Neurological: Alert, Oriented x3 Diagnostic/Tx/Re-eval - Medical Decision Making I was able to review the ophthalmology consult as well as the discharge summary from [facility] through clinic sink. Patient had been on IV clindamycin and IV vancomycin. Patient also felt that she was receiving IV Benadryl and that was helping her swelling quite a bit. At this time patient be written for p.o. clindamycin, Benadryl, and ofloxacin eyedrops. She is referred to Dr. davis, plastic surgery for follow-up as needed. She is given return instructions. I was also able to review CT facial that was performed at [facility]. There was no evidence of deep abscess or deep infection. ED Disposition - Plan for ED Patient: Disposition: Home or Assisted Living Diagnosis: Cellulitis Instructions: Cellulitis Prescriptions: DiphenhydrAMINE [Benadryl] 50 mg PO TID PRN PRN #20 cap PRN Reason: Swelling Transmission Status: Received by [email or web address] [place] Clindamycin [Cleocin] 300 mg PO 4X/DAY #80 cap Transmission Status: Received by [facility] [place] Ofloxacin 1 drp LEFT EYE [id number] #1 opth.btl Transmission Status: Received by [facility] [place] Referrals: Sekou Zhang MD [STAFF PHYSICIAN] - 1 Week if not improving
[2019-11-30] MEDS: DiphenhydrAMINE 25 MG Capsule 50 MG PO (23:33)
[2019-11-30] MEDS: Clindamycin HCl 150 MG Capsule 300 MG PO (23:34)
[2019-11-30 23:38] VITALS: BP 122/76; PULSE 82; RESP 15; O2SAT 98
== END 2019-11-30 23:39 | disposition home or self-care (01) ==
LOC: ED 23:33
PROVIDERS: Emergency Provider Emergency Medicine
DX: L03.90 Cellulitis, unspecified (principal); Z72.0 Tobacco use
CPT/HCPCS: 99283

== ENCOUNTER 2020-02-16 16:30 | Inpatient (IN) | payer MEDICAID, SELFPAY ==
[2020-02-16 16:31] VITALS: BP 123/79; PULSE 91; RESP 16; TEMP 36.4; O2SAT 100; BMI 24.0
--- NOTE | 2020-02-16 16:45 | ED.VISSUMM ---
- ER Visit Summary Date of Service: 02/16/20 Chief Complaint: Abdominal pain [] History of Present Illness: The patient is a 19 F [presents to the emergency department with complaint of abdominal pain that started 2 and half weeks ago. Patient states the pains been continuous but waxes and wanes in intensity. Pain usually worse with walking. Patient is concerned she may have an ectopic as she has had 4 ectopics in the past. Patient denies any vaginal bleeding. She has not had a period since early December. Patient has taken test at home but have been negative. Patient states that the pain is kind of diffuse about her lower abdomen. She describes just minimal dysuria. No fever. No vomiting. No blood in her stool or black tarry stool. Patient is G7, P2.] Physical Examination: [HEENT-PERRLA, EOMI. Cranial nerves II through XII grossly intact. TMs clear. Mucous membranes moist. No adenopathy. Cardiovascular-regular rate and rhythm without murmur or ectopy Lungs-clear to auscultation, chest wall stable without crepitus or subcu emphysema Abdomen-normoactive bowel sounds, soft. Patient has tenderness palpation over lower abdomen diffusely. There is no rebound, rigidity, or peritoneal signs. No masses palpated. Extremities-intact ?4, normal range of motion, normal pulses, atraumatic] Test Results: CBC with differential was normal. Chemistries unremarkable. Urinalysis normal. hCG was negative. CT scan of the abdomen pelvis read by radiology as normal proximal portion of the appendix but could not visualize the distal portion of the appendix. Patient had some inflammatory changes noted within the pelvis. It was recommended that I obtain a pelvic ultrasound. Pelvic ultrasound obtained showed right-sided ovarian cyst and a tubular fluid-filled structure between the bladder and the uterus and it was recommended that MRI be pain to evaluate further. [] Emergency Department Course and Treatment: Claudia case with general surgeon on-call Dr. Grace who asked that we obtain a CT scan of the abdomen pelvis with IV and p.o. contrast. Results will be pending. [] Treatment Plan: [CARE turned over to evening physician awaiting CT results of abdomen pelvis with IV and p.o. contrast] Disposition: [Pending] Impression: [Abdominal pain-etiology uncertain] This note was generated with [employer] software. It may contain incorrect words, spelling, and punctuation that were not noted in review of the chart prior to signing <Chicho Springer - Last Filed: 02/16/20 23:58> - ER Visit Summary Date of Service: 02/17/20 Emergency Department Course and Treatment: Care of the patient was turned over to me pending CT scan. CT scan of the abdomen pelvis with oral and IV contrast shows thickening of the sigmoid colon and rectum suggesting colitis or diverticulitis. There is no obstruction. There are loculated fluid collections in the pelvis measuring 2.8 and 3 cm. There are other small loculated fluid collections in the left hemipelvis measuring up to 15 mm which could represent early abscesses. This was interpreted by the radiologist and reviewed by myself. Case was discussed with Dr. Anne. He reviewed the CT scans and felt that this was more likely to be PID given the patient's age. He did not feel the bowel was inflamed. He recommended admitting the patient to the hospital on antibiotics. Case was discussed with the hospitalist. He recommended discussing the case with DIRECTOR [employer]INEER[employer]. Case was discussed with Dr. Burnett from [employer]. He felt that the patient should be admitted to the hospitalist. Hospitalist will admit the patient. Patient was started on Unasyn, Flagyl, and doxycycline. Results were reviewed with the patient. Patient is agreeable to admission. All questions were answered. Disposition: Admit to hospital Impression: 1. Abdominal pain 2. Pelvic abscesses This note was generated with [employer] dictation software. It may contain incorrect words, spelling, and punctuation that were not noted in review of the chart prior to signing <Simeon Parker - Last Filed: 02/17/20 03:27> ED Disposition <Chicho Springer - Last Filed: 02/16/20 23:58> <Simeon Parker - Last Filed: 02/17/20 03:27> - Plan for ED Patient: Disposition: Acute Care Hospital [facility] Diagnosis: Pelvic abscess in female, Abdominal pain Referrals: Care Physician,No Primary [Primary Care Provider] -
[2020-02-16 17:08] LABS: Absolute Lymphocyte Count 1.75 X10^3/uL (0.83-4.51); Absolute Neutrophil Count 4.9 X10^3/uL (2.0-7.7); Basophil# 0.01 X10^3/uL; Basophil% 0.1 % (0-1); Eosinophil# 0.04 X10^3/uL; Eosinophils% 0.5 % (0-5); Hemoglobin 9.8 g/dL (12.0-15.0); Lymphocyte # 1.75 X10^3/ul (4.0); Lymphocyte % 23.9 % (19-41); Mean Corp Hgb Conc 29.7 g/dL (32-36); Mean Corpuscular Hgb 22.5 pg (27.0-32.0); Mean Corpuscular Volume 75.9 fL (81-99); Mean Platelet Vol. 9.7 fl (6.2-12.0); Monocyte# 0.59 X10^3/uL; Monocyte% 8.1 % (0-10); NRBC Flagged by Analyzer 0 % (0-5); Neutrophil # 4.91 X10^3/uL (2.7-7.7); Neutrophil % 67.1 % (47-70); Platelet Count 483 K/mm3 (150-450); RBC Distribution Width CV 17.2 % (11.6-14.6); RBC Distribution Width SD 46.6 fl (35.1-43.9); Red Blood Count 4.35 M/mm3 (4.2-5.4); White Blood Count 7.3 K/mm3 (4.4-11.0)
[2020-02-16] MEDS: Morphine 4 MG/ML Syringe IV ×2 (17:08→19:56)
[2020-02-16] MEDS: 0.9% Normal Saline 1,000 ML 125 ML IV (17:08)
[2020-02-16] MEDS: Ondansetron 4 MG/2 ML Vial IV (17:08)
[2020-02-16 17:30] LABS: Anion Gap 6 (5-15); BUN 9 mg/dL (7-18); BUN/Creat Ratio 10.1 RATIO (10-20); Calcium,Total 9.2 mg/dL (8.5-10.1); Chloride 107 mmol/L (98-107); Creatinine, Serum 0.89 mg/dL (0.55-1.02); EST Glomerular Filtration Rate 85 mL/min (>60); Est Glom Filt Rate - Afr Amer 103 mL/min (>60); Estimated Creatinine Clearance 86.34 ml/min; Glucose 82 mg/dL (74-106); Potassium 3.6 mmol/L (3.5-5.1); Sodium Level 139 mmol/L (136-145)
[2020-02-16 17:34] LABS: Internal QC Validated? YES +Cl - CLEAR BKGD; Pregnancy, Serum, hCG Quali. NEGATIVE Negative
--- NOTE | 2020-02-16 18:10 | CT_ITS ---
We are attempting to reach an attending provider to discuss findings. An addendum with communication details will be sent when the communication is complete. STUDY: CT ABDOMEN AND PELVIS WITHOUT CONTRAST REASON FOR EXAM: Female, 19 years old. Abdominal pain,LOOKING FOR ECTOPIC VS APPY RADIATION DOSAGE (If Supplied By Facility): CTDIvol = ( 6.06 ) mGy, DLP = ( 319.28 ) mGycm TECHNIQUE: Transaxial images were obtained from the dome of the diaphragm to the symphysis pubis without oral contrast, and without intravenous contrast. Sagittal and coronal images were reconstructed. Individualized dose optimization techniques were used for this CT. COMPARISON: None. FINDINGS: The visualized lung bases are unremarkable. The visualized portions of the heart are within normal limits. Normal liver. Normal gallbladder and extrahepatic biliary system. Normal spleen. Normal pancreas. Normal bilateral adrenal glands. Normal right kidney. 2 mm nonobstructing left mid pole calyx stone, otherwise unremarkable left kidney. Normal visualized stomach. Normal small intestine. Normal colon. The proximal appendix is visualized and appears normal. Distal portion of the appendix is not well seen. There is moderate stranding with irregular soft tissue density within the right lower quadrant and right adnexa, poorly characterized. Normal abdominal aorta. Normal inferior vena cava. Normal retroperitoneum. Normal urinary bladder. Uterus appears enlarged and is poorly characterized. There is a low-attenuation structure posterior inferior aspect of the bladder which is poorly characterized. Normal abdominal wall. Normal osseous structures. CT/Abdomen/Pelvis without Cont IMPRESSION: Examination is limited due to the lack of intravenous contrast. An acute process is noted within the pelvis but is poorly characterized. The proximal appendix is normal however the distal appendix is obscured by this process. Favor a gynecologic process such as a possible ruptured ectopic however if that is a valid clinical concern. Consider contrast-enhanced MRI for further evaluation and to avoid further irradiation of this young patient. Electronically Signed: Jayjay Mariscal, at 19:39 EDT Tel , Service support ,
--- NOTE | 2020-02-16 19:44 | US_ITS ---
STUDY: ULTRASOUND OF THE FEMALE PELVIS - COMPLETE REASON FOR EXAM: Female, [address] scan. LOWER ABD PAIN LMP: 12/28/19 TECHNIQUE: Transabdominal TECHNICAL QUALITY: Limited. No transvaginal images. COMPARISON: CT scan of earlier today. FINDINGS: The uterus is anteverted and is in a midline position. The uterus measures 10.6 x 5.4 x 3.4 cm. Normal uterine cervix. The endometrium measures 6 mm in thickness, and is hyperechoic. There is no demonstrated endometrial mass. There is no demonstrated myometrial mass. I.U.D. - The patient does not have an I.U.D. The right ovary is visualized. The right ovary measures 5.8 x 3.9 x 2.9 cm. There is a 3.4 cm irregular cyst of the right ovary. There is no visualized right adnexal mass or complex lesion. There is normal arterial and normal venous vascularity. The left ovary is visualized. The left ovary measures 3.0 x 2.3 x 1.7 cm. There is no left ovarian cyst or ovarian mass. There is no visualized left adnexal mass or complex lesion. There is normal arterial and normal venous vascularity. 3.5 x 3.4 x 1.5 cm elliptical fluid collection seen located between the anterior aspect of the uterus and the bladder. In retrospect this can also be seen on the CT scan. Etiology is unknown. There is no fluid in the cul-de-sac. The pre void volume of the bladder was 351 ml. US/Pelvic (Non ) IMPRESSION: Again noted is enlargement of the uterus. 3.4 cm complex cyst of the right ovary. Elliptical fluid collection located between the uterus and the bladder of uncertain etiology. As indicated on the prior ultrasound report, recommend further evaluation with contrasted MRI. Electronically Signed: Nick Carpio MD at 22:44 EDT , Service support ,
[2020-02-16 19:57] VITALS: BP 118/83; PULSE 63; RESP 18; O2SAT 94
[2020-02-16 21:57] VITALS: RESP 17
[2020-02-16 23:00] VITALS: BP 113/71; PULSE 74; RESP 18; O2SAT 98
[2020-02-16 23:17] LABS: Bacteria 0 SEEN /hpf (None Seen); Mucous, Urine 0 SEEN /hpf (<or=2+); Red Blood Cells-Urine 0 SEEN /hpf (0-5)
[2020-02-16 23:21] LABS: Color, Urine Straw (Yellow); Glucose, Dipstick Normal (Normal); Ketone-Dipstick 15 mg/dl (Negative); Leukocyte Esterase-Dipstick 25 /ul (Negative); Nitrite-Dipstick Negative (Negative); Occult Blood-Urine 10 /ul (Negative); Protein-Dipstick Negative (Negative); Urine Bilirubin Dipstick Negative (Negative); Urine Clarity Sl. Cloudy (Clear); Urine Urobilinogen Normal (Normal); Urine pH 6.5 (5.0 - 8.0)
--- NOTE | 2020-02-16 23:45 | CON.PCM_ITS ---
Problem List (1) Abdominal pain Status: Acute Qualifiers: Abdominal location: right lower quadrant Qualified Code(s): R10.31 - Right lower quadrant pain Reason for Consult Date of Consultation: 02/16/20 History of Present Illness: The patient is a 19 year old F who says she has been having lower abdominal pain for 3 weeks. She is not having any nausea or vomiting. She says her pain comes and goes. She says she has a history of for tubal pregnancies. She says this feels the same as when she had the tubal pregnancies. She says that it occasionally feels like someone stabbing her and occasionally has dull pain. She is not experiencing any fevers or chills and reports that today is no worse than has been for the last 3 weeks but her boyfriend told her that she looked bigger than normal and she should come to the emergency room. Past Medical History Past Medical History (Chronic Problems): Chronic Problems (Last Reviewed 08/20/19 @ 22:03 by Sandy Andre RN) Diabetes (Chronic) Graves disease (Chronic) Epilepsy (Chronic) neuro consult. no meds. last seizure 07/15 Migraine (Chronic) Convulsion, non-epileptic (Chronic) Hypothyroid (Chronic) Medical History: Medical History (Last Reviewed 08/20/19 @ 22:03 by Sandy Andre RN) Hypothyroid E03.9 Seizure R56.9 Reported by patient. No records documenting actual seizure actvity. Patient not compliant with seeing neurology. Allergies levothyroxine sodium [From Synthroid] Allergy (Mild, Verified 11/30/19 23:03) Other itching and zombified feeling Home Medications: Ambulatory Orders Medication Instructions Recorded NK 02/16/20 Surgical History: Surgical History (Last Reviewed 08/27/18 @ 12:56 by Fransisca Delarosa) delivery delivered O82 H/O thyroidectomy Z98.890 Smoking Status: Current every day smoker Review of Systems Constitutional: Denies: Anorexia, Fever HEENT: Denies: Difficulty Swallowing Cardiovascular: Denies: Chest Pain Respiratory: Denies: Cough Gastrointestinal: Reports: Abdominal Pain. Denies: Diarrhea, Nausea, Vomiting Genitourinary: Denies: Dysuria Musculoskeletal: Denies: Joint Tenderness, Leg Pain Skin: Denies: Jaundice Neurological: Denies: Balance problems Hematologic/ Lymphatic: Denies: Anemia Patient Problems: Active and Suspected Problems (Last Reviewed 08/20/19 @ 22:03 by Sandy Andre RN) Abdominal pain (Acute) - Physical Exam Vitals/I&O's: Vital Signs Temp Pulse Resp BP Pulse Ox 97.5 F L 74 18 113/71 98 02/16/20 16:31 02/16/20 23:00 02/16/20 23:00 02/16/20 23:00 02/16/20 23:00 Oxygen Delivery Method Room Air Weight: 140 lb Body Mass Index (BMI) 24.0 Finger Stick Blood Glucose 110 General: Alert, Oriented x3 HEENT: Atraumatic Lungs: Normal air movement Cardiovascular: Regular rate, Regular Rhythm Abdomen: Soft, Non-Distended, Tender - Tender in the right lower quadrant with no guarding or rebound Skin: No rashes Musculoskeletal: No Muscle Wasting Neurological: Cranial nerves II-XII grossly intact Psych/Mental Status: Normal Affect Laboratory Results 02/16/20 17:00: WBC 7.3, RBC 4.35, Hgb 9.8 L, Hct 33.0 L, MCV 75.9 L, MCH 22.5 L , MCHC 29.7 L, RDW Std Deviation 46.6 H, RDW Coeff of Elaine 17.2 H, Plt Count 483 H, MPV 9.7, Immature Gran % (Auto) 0.300, Neut % (Auto) 67.1, Lymph % (Auto) 23.9, [place] % (Auto) 8.1, Eos % (Auto) 0.5, Baso % (Auto) 0.1, Absolute Neuts (auto) 4.9, Absolute Lymphs (auto) 1.75, Nucleated RBC % 0 02/16/20 17:00: Sodium 139, Potassium 3.6, Chloride 107, Carbon Dioxide 26.0, Anion Gap 6, BUN 9, Creatinine 0.89, Estim Creat Clear Calc 86.34, Est GFR (MDRD) Af Amer 103, Est GFR (MDRD) Non-Af 85, BUN/Creatinine Ratio 10.1, Glucose 82, Calcium 9.2 02/16/20 17:00: Serum , Qual NEGATIVE 02/16/20 23:05: Urine Color Straw, Urine Clarity Sl. Cloudy, Urine pH 6.5, Ur Specific [place] 1.010, Urine Protein Negative, Urine Glucose (UA) Normal, Urine Ketones 15 H, Urine Occult Blood 10 H, Urine Nitrite Negative, Urine Bilirubin Negative, Urine Urobilinogen Normal, Ur Leukocyte Esterase 25 H, Urine RBC Pending, Urine WBC Pending, Ur Squamous Epith Cells Pending, Urine Bacteria Pending, Urine Mucus Pending Clinical Impression(s) from Imaging Studies Abdomen/Pelvis CT 02/16/20 18:10 IMPRESSION: Examination is limited due to the lack of intravenous contrast. An acute process is noted within the pelvis but is poorly characterized. The proximal appendix is normal however the distal appendix is obscured by this process. Favor a gynecologic process such as a possible ruptured ectopic however if that is a valid clinical concern. Consider contrast-enhanced MRI for further evaluation and to avoid further irradiation of this young patient. Electronically Signed: Jayjay Mariscal, at 19:39 EDT Tel , Service support , ADDENDUM: 02/16/[id number] IMPRESSION: Examination is limited due to the lack of intravenous contrast. An acute process is noted within the pelvis but is poorly characterized. The proximal appendix is normal however the distal appendix is obscured by this process. Favor a gynecologic process such as a possible ruptured ectopic however if that is a valid clinical concern. Consider contrast-enhanced MRI for further evaluation and to avoid further irradiation of this young patient. N.B. : The above information has been verbally conveyed by Jayjay Mariscal to Chicho Springer MD, on 02/16/2020 19:47:55 (ET). Electronically Signed: Jayjay Mariscal at 19:39 EDT Tel , Service support , Pelvis Ultrasound 02/16/20 19:44 IMPRESSION: Again noted is enlargement of the uterus. 3.4 cm complex cyst of the right ovary. Elliptical fluid collection located between the uterus and the bladder of uncertain etiology. As indicated on the prior ultrasound report, recommend further evaluation with contrasted MRI. Electronically Signed: Nick Carpio MD at 22:44 EDT , Service support , Current Medications Sodium Chloride () 1,000 mls @ 125 mls/hr IV .Q8H SONU Last Admin: 02/16/20 17:08 Dose: 125 mls/hr Documented by: Assessment/Plan All Active Problems (Last Reviewed 08/20/19 @ 22:03 by Sandy Andre RN) History of delivery affecting (Acute) Hypothyroidism affecting (Acute) Supervision of high-risk (Acute) Family history of spina bifida (Acute) History of abnormality in previous , currently (Acute) Tobacco smoking affecting (Acute) History of marijuana use (Acute) (Acute) Anemia during (Acute) Graves disease (Resolved) Back pain affecting (Acute) False labor (Acute) Abdominal pain (Acute) Diabetes in (Ruled-out) 19-year-old female with abdominal pain 1. The patient is having lower abdominal pain but I am unsure as to etiology. She had a CT scan without contrast that shows some inflammation in the lower abdomen. She had a pelvic ultrasound which shows an elliptical fluid collection between the bladder and the uterus. 2. Patient is getting a repeat CT scan with p.o. and IV contrast. Patient should be admitted to the medical team if necessary as she may be having gynecological issues at this time. If repeat CT scan does not fact show acute appendicitis I ordered lean toward treating this medically with antibiotics as it likely perforated a long time ago. There is no sign of abscess that I can see in proximity of the appendix. Her white count is normal. Will be available if surgical intervention is necessary. Keith Anne MD Pager: [facility] [address] [place] [address], [address] [place] [address] Office:
[2020-02-17] VITALS (11 sets, daily range): BP systolic 77–116; BP diastolic 44–75; PULSE 52–69; RESP 16–18; TEMP 36.5–36.7; O2SAT 96–100; BMI 22.1; BMI 22.0
[2020-02-17 00:04] LABS: Squamous Epithelial Cells - UA 0-5 SEEN /hpf (5-10); White Blood Cells 0-5 SEEN /hpf (0-5)
--- NOTE | 2020-02-17 02:15 | HP.PCM_ITS ---
Problem List (1) Lower abdominal pain Status: Acute (2) Diabetes Status: Chronic (3) Graves disease Status: Chronic (4) History of delivery affecting Status: Chronic Comment: considering (5) Hypothyroidism affecting Status: Chronic Qualifiers: Trimester: second trimester Qualified Code(s): O99.282 - Endocrine, nutritional and metabolic diseases complicating , second trimester; E03.9 - Hypothyroidism, unspecified Comment: h/o thyroid removal. ordered testing (6) Epilepsy Status: Chronic Qualifiers: Epilepsy type: unspecified Intractability: not intractable Status epilepticus: without status epilepticus Qualified Code(s): G40.909 - Epilepsy, unspecified, not intractable, without status epilepticus Comment: neuro consult. no meds. 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, non-epileptic Status: Chronic (11) Hypothyroid Status: Chronic (12) Abdominal pain Status: Acute Qualifiers: Abdominal location: right lower quadrant Qualified Code(s): R10.31 - Right lower quadrant pain (13) Pelvic abscess in female Status: Acute History of Present Illness Date of Admission: 02/17/20 Chief Complaint: right lower abdominal pain The patient is a 19 year old F with a significant history of hypothyroidism secondary to thyroidectomy; diabetes mellitus; multiple tubal pregnancies who presented to the emergency department with right lower quadrant pain that started from the first week of January 2020 and has been progressively worsening. The pain radiates to the left lower quadrant of her abdomen. The pain worsens with moving, talking and deep breathing. The pain improves with rest. She denies any nausea or vomiting. However at the emergency department after she had received multiple doses of morphine she became nauseous and began to vomit. While at emergency department she complains of itching that she attributed to receiving morphine. She reports generalized bruising and left shoulder pain. Her last menstruation was within the first week of December 2019. Initial abdomen and pelvis CT was without contrast and it showed an acute process in the pelvis that was poorly characterized . Pelvic ultrasound showed enlargement of the uterus; a 3.4 cm complex cyst of the right ovary; and an elliptical fluid collection located between the uterus and the bladder of uncertain etiology. Pelvis CT with IV contrast showed suspected diverticulitis of the sigmoid colon with suspected multiple pelvic abscesses. General surgery saw the patient at the emergency department. Past Medical History Past Medical History (Chronic Problems): Chronic Problems (Last Reviewed 02/17/20 @ 05:[address] Josiah Matute MD) Diabetes (Chronic) Graves disease (Chronic) History of delivery affecting (Chronic) considering Hypothyroidism affecting (Chronic) h/o thyroid removal. ordered testing Epilepsy (Chronic) neuro consult. no meds. last seizure 07/15 Family history of spina bifida (Chronic) 4 mg folic acid History of marijuana use (Chronic) encouraged cessation Migraine (Chronic) Convulsion, non-epileptic (Chronic) Hypothyroid (Chronic) Medical History: Medical History (Last Reviewed 02/17/20 @ 05:[address] Josiah Matute MD) Hypothyroid E03.9 Seizure R56.9 Reported by patient. No records documenting actual seizure actvity. Patient not compliant with seeing neurology. Allergies levothyroxine sodium [From Synthroid] Allergy (Mild, Verified 11/30/19 23:03) Other itching and zombified feeling Home Medications: Ambulatory Orders Medication Instructions Recorded NK 02/16/20 Surgical History: Surgical History (Last Reviewed 02/17/20 @ 05:[address] Josiah Matute MD) delivery delivered O82 H/O thyroidectomy Z98.890 Smoking Status: Current every day smoker Tobacco Use: Cigarettes Alcohol: None - *Family History Maternal Family History: Family History (Last Reviewed 02/17/20 @ 05:[address] Josiah Matute MD) Mother Cancer Review of Systems Constitutional: Reports: Chills - Chronic. Denies: Fever, Weight Change HEENT: Denies: Head Aches, Sinus Congestion, Sinus Drainage Cardiovascular: Denies: Chest Pain, Palpitations Respiratory: Denies: Cough, Shortness of breath at rest, Sputum production Gastrointestinal: Reports: Abdominal Pain, Nausea - Not before presentation but developed at emergency department after multiple doses of morphine., Vomiting Genitourinary: Denies: Dysuria Musculoskeletal: Reports: Shoulder Pain. Denies: Joint Pain, Joint Tenderness Skin: Denies: Rash, Wounds Neurological: Denies: Numbness, Tingling, Focal weakness Psychiatric: Denies: Anxiety, Depression, Homicidal Ideations, Suicidal Ideations Hematologic/ Lymphatic: Reports: Easy Bruising. Denies: Easy Bleeding VTE Information - Inpt Only VTE Present on Admission: No VTE Mechan Device Prophylaxis: None VTE Pharm Prophylaxis ordered?: No Reason prophylaxis not ordered:: Treatment Not Indicated - Low risk Patient Problems: Active and Suspected Problems (Last Reviewed 02/17/20 @ 05:[address] Josiah Matute MD) Abdominal pain (Acute) Pelvic abscess in female (Acute) Lower abdominal pain (Acute) - Physical Exam Vitals/I&O's: Vital Signs Temp Pulse Resp BP Pulse Ox 98.1 F 64 18 106/74 100 02/17/20 02:11 02/17/20 02:11 02/17/20 02:11 02/17/20 02:11 02/17/20 02:11 Oxygen Delivery Method Room Air Weight: 63.503 kg Body Mass Index (BMI) 24.0 Finger Stick Blood Glucose 110 Intake and Output for Last 24 Hours 02/15/20 02/16/20 02/17/20 23:59 23:59 23:59 Intake Total 1000 / 1000 Balance 1000 / 1000 General: Alert, Oriented x3, Cooperative HEENT: Atraumatic, PERRLA, EOMI, Normocephalic Neck: Supple, No JVD, Negative Carotid Bruits Lungs: Clear to auscultation, Normal air movement, No rhonchi, No wheeze, No rales Cardiovascular: Regular rate, Normal S1, Normal S2, No murmurs Abdomen: Bowel Sounds Present, Soft, Tender Extremities: No edema, Capillary Refill Less than 3 Seconds Skin: No rashes, No breakdown Musculoskeletal: No Tenderness to Palpation of Joints or Extremities Neurological: Cranial nerves II-XII grossly intact Psych/Mental Status: Normal Affect, Appropriate Laboratory Results 02/16/20 17:00: WBC 7.3, RBC 4.35, Hgb 9.8 L, Hct 33.0 L, MCV 75.9 L, MCH 22.5 L , MCHC 29.7 L, RDW Std Deviation 46.6 H, RDW Coeff of Elaine 17.2 H, Plt Count 483 H, MPV 9.7, Immature Gran % (Auto) 0.300, Neut % (Auto) 67.1, Lymph % (Auto) 23.9, [place] % (Auto) 8.1, Eos % (Auto) 0.5, Baso % (Auto) 0.1, Absolute Neuts (auto) 4.9, Absolute Lymphs (auto) 1.75, Nucleated RBC % 0 02/16/20 17:00: Sodium 139, Potassium 3.6, Chloride 107, Carbon Dioxide 26.0, Anion Gap 6, BUN 9, Creatinine 0.89, Estim Creat Clear Calc 86.34, Est GFR (MDRD) Af Amer 103, Est GFR (MDRD) Non-Af 85, BUN/Creatinine Ratio 10.1, Glucose 82, Calcium 9.2 02/16/20 17:00: Serum , Qual NEGATIVE 02/16/20 23:05: Urine Color Straw, Urine Clarity Sl. Cloudy, Urine pH 6.5, Ur Specific [place] 1.010, Urine Protein Negative, Urine Glucose (UA) Normal, Urine Ketones 15 H, Urine Occult Blood 10 H, Urine Nitrite Negative, Urine Bilirubin Negative, Urine Urobilinogen Normal, Ur Leukocyte Esterase 25 H, Urine RBC 0 SEEN, Urine WBC 0-5 SEEN, Ur Squamous Epith Cells 0-5 SEEN, Urine Bacteria 0 SEEN, Urine Mucus 0 SEEN Current Medications Sodium Chloride () 1,000 mls @ 125 mls/hr IV .Q8H SONU Last Infusion: 02/17/20 01:15 Dose: Infused Documented by: Assessment/Plan All Active Problems (Last Reviewed 02/17/20 @ 05:[address] Josiah Matute MD) Graves disease (Resolved) Abdominal pain (Acute) Pelvic abscess in female (Acute) Lower abdominal pain (Acute) Diabetes in (Ruled-out) The patient is a 19 year old F with a significant history of hypothyroidism secondary to thyroidectomy; multiple tubal pregnancies who presented to the emergency department with right lower quadrant pain and with pelvis CT findings of suspected diverticulitis and multiple pelvic abscesses. Suspected diverticulitis and multiple pelvic abscesses. Differential diagnosis include PID.Negative test Per radiologist recommendation will get MRI with contrast of her Pelvis. Discussed the case with gynecology. Official consult for gynecology placed. General surgeon saw the patient at the ED. Will consult general surgery inpatient. Patient was started at the ED on Unasyn; doxycycline and Flagyl; continued. Trend CBC and BMP. Put on clear liquid diet History of hypothyroidism Patient reports thyroidectomy secondary to Graves' disease. Reportedly was started on levothyroxine but was allergic so levothyroxine was discontinued. Reportedly another thyroid medication was started but patient did not take. She reported that is been 5 years since she has been off thyroid medications. Patient to follow-up outpatient with her PCP on this. Diabetes mellitus Reported history of diabetes. Unclear whether gestational diabetes or not. Blood glucose was within goal on presentation. Trend BMP. Tobacco abuse Counseled. DVT prophylaxis Low risk. Inpatient E&M: [id number] Init Hosp L3
[2020-02-17] MEDS: 0.9% Normal Saline 1,000 ML 125 ML IV (02:22)
[2020-02-17] MEDS: Morphine 4 MG/ML Syringe IV (02:23)
[2020-02-17] MEDS: Doxycycline 100 MG CAPSULE PO (02:23)
[2020-02-17] MEDS: Ondansetron 4 MG/2 ML Vial IV (03:40)
[2020-02-17] MEDS: metroNIDAZOLE 500 MG/100 ML BAG 100 MG IV ×3 (03:43→22:33)
[2020-02-17] MEDS: DiphenhydrAMINE 50 MG/ML Syringe 25 MG IV (03:53)
[2020-02-17] MEDS: 0.9% Normal Saline 1,000 ML 75 ML IV (04:57)
--- NOTE | 2020-02-17 07:56 | PN.SURG_ITS ---
Patient Problems: Active and Suspected Problems (Last Reviewed 02/17/20 @ 05:[address] Josiah Matute MD) Abdominal pain (Acute) Pelvic abscess in female (Acute) Lower abdominal pain (Acute) - Physical Exam Vitals/I&O's: Vital Signs Temp Pulse Resp BP Pulse Ox 97.7 F L 59 L 16 116/75 98 02/17/20 04:13 02/17/20 04:13 02/17/20 04:13 02/17/20 04:13 02/17/20 07:49 Oxygen Delivery Method Room Air Weight: 128 lb 8.472 oz Body Mass Index (BMI) 22.0 Finger Stick Blood Glucose 110 Intake and Output for Last 24 Hours 02/15/20 02/16/20 02/17/20 23:59 23:59 23:59 Intake Total 1758.92 / 1758.92 Balance 1758.92 / 1758.92 General: Alert, Oriented x3 Lungs: Normal air movement Abdomen: Soft, Non-Distended, Tender Laboratory Results 02/16/20 17:00: WBC 7.3, RBC 4.35, Hgb 9.8 L, Hct 33.0 L, MCV 75.9 L, MCH 22.5 L , MCHC 29.7 L, RDW Std Deviation 46.6 H, RDW Coeff of Elaine 17.2 H, Plt Count 483 H, MPV 9.7, Immature Gran % (Auto) 0.300, Neut % (Auto) 67.1, Lymph % (Auto) 23.9, [place] % (Auto) 8.1, Eos % (Auto) 0.5, Baso % (Auto) 0.1, Absolute Neuts (auto) 4.9, Absolute Lymphs (auto) 1.75, Nucleated RBC % 0 02/16/20 17:00: Sodium 139, Potassium 3.6, Chloride 107, Carbon Dioxide 26.0, Anion Gap 6, BUN 9, Creatinine 0.89, Estim Creat Clear Calc 86.34, Est GFR (MDRD) Af Amer 103, Est GFR (MDRD) Non-Af 85, BUN/Creatinine Ratio 10.1, Glucose 82, Calcium 9.2 02/16/20 17:00: Serum , Qual NEGATIVE 02/16/20 23:05: Urine Color Straw, Urine Clarity Sl. Cloudy, Urine pH 6.5, Ur Specific [place] 1.010, Urine Protein Negative, Urine Glucose (UA) Normal, Urine Ketones 15 H, Urine Occult Blood 10 H, Urine Nitrite Negative, Urine Bilirubin Negative, Urine Urobilinogen Normal, Ur Leukocyte Esterase 25 H, Urine RBC 0 SEEN, Urine WBC 0-5 SEEN, Ur Squamous Epith Cells 0-5 SEEN, Urine Bacteria 0 SEEN, Urine Mucus 0 SEEN Current Medications Acetaminophen (Tylenol) 650 mg PO Q6H PRN PRN PRN Reason: Pain Score 1-10/Temp > 100.7 F Dextrose (D50w Syringe) 0 gm IV X1 PRN; Protocol PRN Reason: Hypoglycemia Diphenhydramine HCl (Benadryl) 25 mg IV Q6H PRN PRN PRN Reason: ITCHING Glucagon () 1 mg IM .X1 PRN PRN Reason: Hypoglycemia Ampicillin Sodium/Sulbactam (Sodium 3 gm/ Sodium Chloride) 112 mls @ 150 mls/hr IV Q6 SONU Doxycycline Hyclate 100 mg/ (Dextrose) 260 mls @ 250 mls/hr IV Q12 SONU Metronidazole (Flagyl) 500 mg in 100 mls @ 100 mls/hr IV Q8 SONU Sodium Chloride () 1,000 mls @ 75 mls/hr IV .[id number] SONU Last Admin: 02/17/20 04:57 Dose: 75 mls/hr Documented by: Morphine Sulfate () 2 mg IV Q3H PRN PRN PRN Reason: Pain Score 6-10/10 Ondansetron HCl (Zofran) 4 mg IV Q8H PRN PRN PRN Reason: NAUSEA/VOMITING Prochlorperazine Edisylate (Compazine Iv) 5 mg IV Q4H PRN PRN PRN Reason: Breakthrough nausea/vomiting Sodium Chloride () 10 - 40 ml IV UD PRN PRN Reason: SALINE FLUSH Medical Necessity - Tobacco Use Smoking Status: Current every day smoker Tobacco Use: Cigarettes Assessment/Plan All Active Problems (Last Reviewed 02/17/20 @ 05:[address] Josiah Matute MD) Graves disease (Resolved) Abdominal pain (Acute) Pelvic abscess in female (Acute) Lower abdominal pain (Acute) Diabetes in (Ruled-out) 19-year-old female with pelvic inflammation and abscesses 1. The patient's repeat CT scan with contrast was read as possible diverticulitis with multiple abscesses in the pelvis. I am unsure that this is a actual diagnosis as the patient has normal white count and she does not have any appreciable diverticulosis that I can identify. Having perforated diverticulitis with abscesses in a 19-year-old be very unlikely especially the fact that this is been going on for 3 weeks. Patient reports that she lost a 2 months ago and I am concerned that this may have something to do with that. This patient also may have PID. I still believe that perforated diverticulitis is low on the differential list. 2. Gynecological consultation has been placed and I would appreciate their input. Continue antibiotics and either way I would recommend repeating a CT scan in 1 week. Keith Anne MD Pager: [facility] [address] [place] [address], [address] [place] [address] Office:
[2020-02-17 08:32] LABS: Absolute Lymphocyte Count 2.02 X10^3/uL (0.83-4.51); Absolute Neutrophil Count 3.6 X10^3/uL (2.0-7.7); Basophil# 0.01 X10^3/uL; Basophil% 0.2 % (0-1); Eosinophil# 0.07 X10^3/uL; Eosinophils% 1.1 % (0-5); Hematocrit 26.9 % (37-47); Lymphocyte # 2.02 X10^3/ul (4.0); Lymphocyte % 32.5 % (19-41); Mean Corp Hgb Conc 29.7 g/dL (32-36); Mean Corpuscular Hgb 22.3 pg (27.0-32.0); Mean Corpuscular Volume 74.9 fL (81-99); Mean Platelet Vol. 9.1 fl (6.2-12.0); Monocyte# 0.53 X10^3/uL; Monocyte% 8.5 % (0-10); NRBC Flagged by Analyzer 0 % (0-5); Neutrophil # 3.58 X10^3/uL (2.7-7.7); Neutrophil % 57.5 % (47-70); Platelet Count 385 K/mm3 (150-450); RBC Distribution Width CV 17.1 % (11.6-14.6); RBC Distribution Width SD 45.8 fl (35.1-43.9); Red Blood Count 3.59 M/mm3 (4.2-5.4); White Blood Count 6.2 K/mm3 (4.4-11.0)
[2020-02-17 08:54] LABS: Anion Gap 6 (5-15); BUN 5 mg/dL (7-18); BUN/Creat Ratio 7.9 RATIO (10-20); Calcium,Total 8.3 mg/dL (8.5-10.1); Chloride 110 mmol/L (98-107); Creatinine, Serum 0.64 mg/dL (0.55-1.02); EST Glomerular Filtration Rate 125 mL/min (>60); Est Glom Filt Rate - Afr Amer 151 mL/min (>60); Estimated Creatinine Clearance 120.07 ml/min; Glucose 102 mg/dL (74-106); Potassium 3.2 mmol/L (3.5-5.1); Sodium Level 141 mmol/L (136-145)
[2020-02-17] MEDS: Morphine 2 MG/ML Syringe IV (08:56)
--- NOTE | 2020-02-17 09:30 | PN_ITS ---
Patient Problems: Active and Suspected Problems (Last Reviewed 02/17/20 @ 05:[address] Josiah Matute MD) Abdominal pain (Acute) Pelvic abscess in female (Acute) Lower abdominal pain (Acute) Subjective: Patient seen and examined. She was admitted with a complaint of lower abdominal pain which had been going on since the first week of January 2020. She tells me she decided to come to the hospital because everyone was telling her she looks [address] of the abdomen and pelvis on admission was inconclusive as it was limited by lack of IV contrast and showed acute process noted within the pelvis but poorly characterized and mentioned that in favor gynecologic process such as possible ruptured ectopic if that was a valid clinical concern. Pelvic ultrasound was done which showed enlargement of the uterus with a 3.4 cm complex cyst of the right ovary and elliptical fluid collection located between the uterus and bladder of uncertain etiology and recommended further evaluation with contrasted MRI. Pelvic CT done with IV contrast showed diffuse thickening of the sigmoid colon and rectum with induration of the surrounding mesentery suggesting colitis or diverticulitis with no obstruction and loculated fluid in the pelvis measuring 2.8 cm with similar appearing loculated fluid collection between urinary bladder and uterus measuring 3 cm which could be abscesses associated with diverticulitis and smaller similar loculated fluid collection seen in the left hemipelvis measuring up to 15 mm which could be small early abscesses. Urology and gynecology on board. She is currently on IV fluids and IV antibiotics. Patient still complains of abdominal pain though she states is getting better. She denies any fever or chills and admits to throwing up once since admission. He tells me that she has had several ectopic pregnancies in the past. She informed me that she had been told that it could possibly be due to a sexually transmitted infection; she could not say exactly who told her that it could be a sexually transmitted infection. Patient said if it was an STI, she was going to see you all the doctors she had seen within the last year because she just had a baby 1 year ago and did not understand how she could have a sexually transmitted infection if that was the case. I explained to patient that having a baby 1 year ago did not preclude anyone from getting a sexually transmitted infection; patient says she had been with the same partner all this while. When I inquired if she could state that she was the only sexual partner of her partner, patient says she could not confirm that she was the only one her partner had been with. Review of systems otherwise negative. She denies any vaginal discharge. Labs and vitals reviewed. Blood pressure is noted to be 93/52 with pulse rate of 52 and respiratory of 16. Chemistry shows potassium of 3.2 but is otherwise unremarkable. Serum test was negative. CBC shows WBC of 6.2 but hemoglobin has dropped from 9.8 to 8. She is currently on IV doxycycline and IV metronidazole. Patient also tells me that she has numerous comorbidities and says she has been told that she has diabetes and seizures and a whole lot of other problems that she does not remember the name of. However she refuses to take any medications because she says she lives her life as if there is nothing more with him refuses to be a guinea pig and be subjected to taking a lot of medications. Vitals/I&O's: Vital Signs Temp Pulse Resp BP Pulse Ox 97.7 F L 52 L 16 93/52 L 99 02/17/20 09:00 02/17/20 09:00 02/17/20 09:00 02/17/20 09:00 02/17/20 09:00 Oxygen Delivery Method Room Air Weight: 128 lb 8.472 oz Body Mass Index (BMI) 22.0 Finger Stick Blood Glucose 110 Intake and Output for Last 24 Hours 02/15/20 02/16/20 02/17/20 23:59 23:59 23:59 Intake Total 1758.92 / 1758.92 Balance 1758.92 / 1758.92 General: Alert, Oriented x3, Cooperative, No apparent distress HEENT: Atraumatic, PERRLA, EOMI, Normocephalic Oral: Dry Mucosa Neck: Supple, No JVD, Negative Carotid Bruits, Negative Hepatojugular Reflux, No Nodes Lungs: Clear to auscultation, Normal air movement, No rhonchi, No wheeze Cardiovascular: Regular Rhythm, Normal S1, Normal S2, No murmurs, Bradycardic Abdomen: Bowel Sounds Present, Soft, - - mild suprapubic tenderness, no guarding or rebound tenderness Extremities: No clubbing, No cyanosis, No edema, Capillary Refill Less than 3 Seconds Skin: No rashes, No breakdown Musculoskeletal: No Tenderness to Palpation of Joints or Extremities Lymphatic: No Cervical, Supraclavicular, or Inguinal Adenopathy Neurological: Cranial nerves II-XII grossly intact, Neuro grossly intact, Motor Exam 5/5 strength throughout Psych/Mental Status: Normal Affect, Appropriate, Alert and oriented to time, place, person, mood and affect Laboratory Results 02/16/20 17:00: WBC 7.3, RBC 4.35, Hgb 9.8 L, Hct 33.0 L, MCV 75.9 L, MCH 22.5 L , MCHC 29.7 L, RDW Std Deviation 46.6 H, RDW Coeff of Elaine 17.2 H, Plt Count 483 H, MPV 9.7, Immature Gran % (Auto) 0.300, Neut % (Auto) 67.1, Lymph % (Auto) 23.9, [place] % (Auto) 8.1, Eos % (Auto) 0.5, Baso % (Auto) 0.1, Absolute Neuts (auto) 4.9, Absolute Lymphs (auto) 1.75, Nucleated RBC % 0 02/16/20 17:00: Sodium 139, Potassium 3.6, Chloride 107, Carbon Dioxide 26.0, Anion Gap 6, BUN 9, Creatinine 0.89, Estim Creat Clear Calc 86.34, Est GFR (MDRD) Af Amer 103, Est GFR (MDRD) Non-Af 85, BUN/Creatinine Ratio 10.1, Glucose 82, Calcium 9.2 02/16/20 17:00: Serum , Qual NEGATIVE 02/16/20 23:05: Urine Color Straw, Urine Clarity Sl. Cloudy, Urine pH 6.5, Ur Specific [place] 1.010, Urine Protein Negative, Urine Glucose (UA) Normal, Urine Ketones 15 H, Urine Occult Blood 10 H, Urine Nitrite Negative, Urine Bilirubin Negative, Urine Urobilinogen Normal, Ur Leukocyte Esterase 25 H, Urine RBC 0 SEEN, Urine WBC 0-5 SEEN, Ur Squamous Epith Cells 0-5 SEEN, Urine Bacteria 0 SEEN, Urine Mucus 0 SEEN 02/17/20 08:24: WBC 6.2, RBC 3.59 L, Hgb 8.0 L, Hct 26.9 L, MCV 74.9 L, MCH 22.3 L, MCHC 29.7 L, RDW Std Deviation 45.8 H, RDW Coeff of Elaine 17.1 H, Plt Count 385, MPV 9.1, Immature Gran % (Auto) 0.200, Neut % (Auto) 57.5, Lymph % (Auto) 32.5, [place] % (Auto) 8.5, Eos % (Auto) 1.1, Baso % (Auto) 0.2, Absolute Neuts (auto) 3.6, Absolute Lymphs (auto) 2.02, Nucleated RBC % 0 02/17/20 08:24: Sodium 141, Potassium 3.2 L, Chloride 110 H, Carbon Dioxide 25.0, Anion Gap 6, BUN 5 L, Creatinine 0.64, Estim Creat Clear Calc 120.07, Est GFR (MDRD) Af Amer 151, Est GFR (MDRD) Non-Af 125, BUN/Creatinine Ratio 7.9 L, Glucose 102, Calcium 8.3 L Diagnostic Data Abdomen/Pelvis CT 02/16/20 18:10 IMPRESSION: Examination is limited due to the lack of intravenous contrast. An acute process is noted within the pelvis but is poorly characterized. The proximal appendix is normal however the distal appendix is obscured by this process. Favor a gynecologic process such as a possible ruptured ectopic however if that is a valid clinical concern. Consider contrast-enhanced MRI for further evaluation and to avoid further irradiation of this young patient. Electronically Signed: Jayjay Mairscal, at 19:39 EDT Tel , Service support , ADDENDUM: 02/16/20 195 IMPRESSION: Examination is limited due to the lack of intravenous contrast. An acute process is noted within the pelvis but is poorly characterized. The proximal appendix is normal however the distal appendix is obscured by this process. Favor a gynecologic process such as a possible ruptured ectopic however if that is a valid clinical concern. Consider contrast-enhanced MRI for further evaluation and to avoid further irradiation of this young patient. N.B. : The above information has been verbally conveyed by Jayjay Mariscal to Chicho Springer MD, on 02/16/2020 19:47:55 (ET). Electronically Signed: Jayjay Mariscal, at 19:39 EDT Tel , Service support , Pelvis Ultrasound 02/16/20 19:44 IMPRESSION: Again noted is enlargement of the uterus. 3.4 cm complex cyst of the right ovary. Elliptical fluid collection located between the uterus and the bladder of uncertain etiology. As indicated on the prior ultrasound report, recommend further evaluation with contrasted MRI. Electronically Signed: Nick Carpio MD at 22:44 EDT , Service support , Pelvis CT 02/17/20 23:00 IMPRESSION: Suspected diverticulitis of the sigmoid colon with suspected multiple pelvic abscesses as described measuring up to 3 cm. Electronically Signed: Erasmo Ramirez MD at 1:24 EDT , Service support , Current Medications Acetaminophen (Tylenol) 650 mg PO Q6H PRN PRN PRN Reason: Pain Score 1-10/Temp > 100.7 F Dextrose (D50w Syringe) 0 gm IV X1 PRN; Protocol PRN Reason: Hypoglycemia Diphenhydramine HCl (Benadryl) 25 mg IV Q6H PRN PRN PRN Reason: ITCHING Glucagon () 1 mg IM .X1 PRN PRN Reason: Hypoglycemia Ampicillin Sodium/Sulbactam (Sodium 3 gm/ Sodium Chloride) 112 mls @ 150 mls/hr IV Q6 SONU Doxycycline Hyclate 100 mg/ (Dextrose) 260 mls @ 250 mls/hr IV Q12 [facility] Metronidazole (Flagyl) 500 mg in 100 mls @ 100 mls/hr IV Q8 SONU Sodium Chloride () 1,000 mls @ 75 mls/hr IV .[id number] SONU Last Admin: 02/17/20 04:57 Dose: 75 mls/hr Documented by: Morphine Sulfate () 2 mg IV Q3H PRN PRN PRN Reason: Pain Score 6-10/10 Last Admin: 02/17/20 08:56 Dose: 2 mg Documented by: Ondansetron HCl (Zofran) 4 mg IV Q8H PRN PRN PRN Reason: NAUSEA/VOMITING Potassium Chloride (K-Dur) 40 meq PO X1 ONE Stop: 02/17/20 09:29 Prochlorperazine Edisylate (Compazine Iv) 5 mg IV Q4H PRN PRN PRN Reason: Breakthrough nausea/vomiting Sodium Chloride () 10 - 40 ml IV UD PRN PRN Reason: SALINE FLUSH STROKE Vital Signs/Narrative: Vital Signs Temp Pulse Resp BP Pulse Ox 02/17/20 09:00 97.7 F L 52 L 16 93/52 L 99 02/17/20 07:49 98 Medical Necessity - Tobacco Use Smoking Status: Current every day smoker Tobacco Use: Cigarettes Assessment/Plan All Active Problems (Last Reviewed 02/17/20 @ 05:[address] Josiah Matute MD) Graves disease (Resolved) Abdominal pain (Acute) Pelvic abscess in female (Acute) Lower abdominal pain (Acute) Diabetes in (Ruled-out) 1. 1. Diverticulitis with pelvic abscesses * test was negative * pain has improved today. * CT of the abdomen and pelvis without contrast showed an acute process noted within the pelvis but poorly characterized, and CT of the pelvis with IV contrast showed suspected diverticulitis of the sigmoid colon with suspeted multiple pelvic abscesses measuring up to 3cm. Uterus was unremarkable * USG showed enlargement of the unterus, with a 3.4cm complex cyst of the right ovary, and elliptical fluid collection located between aquiles ueterus and bladder of uncertain etiology. * MRI of the pelvis is pending * on IV unasyn, doxycycline and flagyl. general surgery and gynecology on board * patient refused pelvic exam by gynecology * per general surgery, they don't think this is diverticulitis, especially in a 19 year old. * I spoke to radiology about getting a stat MRI of the pelvis * 2. Hypotension: * likely medication induced, as patient's BP dropped to 70s systolic after she received morphine. * Hold IV morphine, and hydrate with IVF. * Give bolus of 1L normal saline and continue hydrating wtih IVF NS @ 150cc/hr * 3. Anemia: * Hb has dropped from 9.8 on admission to 8. * Baseline hemoglobin is around 9-10. * Will monitor closely. * There is no clear evidence of bleeding now. * 4.; History of hypothyroidism: * not on any thyroid medication as she says she is allergic. * Has been off thyroid medications for 5 years. * To follow-up with PCP on outpatient basis. * 5. History of diabetes: * Noncompliant with him medications and states he does not take any medication as she does not want to be a kidney pack and take a lot of medications. DVT Prophylaxis: SCDs Inpatient E&M: 94609 Subs Hosp L3
[2020-02-17] MEDS: 0.9% Normal Saline 1,000 ML 150 ML IV ×2 (10:31→22:38)
--- NOTE | 2020-02-17 10:33 | NURSING ---
pt refused to have me call her family
--- NOTE | 2020-02-17 10:37 | PCM.CONS.B ---
- Consult Date of Consult: 02/17/20 - Reason for Consult HISTORY OF PRESENT ILLNESS: On 02/17/2020, Marilyn Montalvo, a 19 year old female , presented for: -- Lower Abdominal Tenderness -- Lower abdominal tenderness right > left which began 2 weeks ago. Marilyn claims it started gradually. It occurs all the time. It is located in the lower abdomen. Marilyn characterizes the quality of the lower abdominal tenderness right > left as stabbing. Severity is moderate and not improving. Associated signs and symptoms are due to start menses next week and problems with bloating and does not believe SPT that she is not . Additional comment: claims 4 ectopics in the past year treated in [place] with pills; pain same as with her ectopics. Presented to the ER and pelvic CT was done without contrast and it showed an acute process in the pelvis that was poorly characterized. Pelvic ultrasound showed enlargement of the uterus and a 3.4 cm complex cyst of the right ovary; also, there was an elliptical fluid collection located between the uterus and the bladder of uncertain etiology. Pelvis CT with IV contrast showed suspected diverticulitis of the sigmoid colon with suspected multiple pelvic abscesses. The patient denies any fever, nausea, vomiting, other evidence of infection. She presented to the emergency room primarily because she thought she had another ectopic . White count was normal in the ER. ALLERGIES: Synthroid MEDICATIONS HISTORY: No medications although patient indicates she is diabetic and had her thyroid removed Past Medical History: Epilepsy, Graves' disease, migraines, hypothyroidism, diabetes, multiple tubal pregnancies Smoker: Patient uses marijuana nearly daily as well as smokes cigarettes daily Surgeries: section and thyroidectomy. She indicates her for tubal pregnancies were treated with medication during the past year and 1 of them was a twin . REVIEW OF SYSTEMS: GENERAL - Denies fever, or chills SKIN - Denies skin changes EYES - Denies visual changes EARS - Denies difficulty hearing NOSE - Denies nasal congestion or bleeding MOUTH - Denies sore throat or difficulty swallowing NECK - Denies pain or swelling RESPIRATORY - Denies shortness of breath or wheezing CARDIOVASCULAR - Denies palpitations or chest pain GASTROINTESTINAL - Denies nausea, vomiting, diarrhea, constipation GENITOURINARY - Denies dysuria, frequency of urination, incontinence of urine MUSCULOSKELETAL - Denies joint or muscle pain NEUROLOGICAL - Denies localized numbness or weakness; has seizures PSYCHIATRIC - Denies depression or anxiety ENDOCRINE - Denies heat or cold intolerance, weight loss or gain; hx of thyroidectomy and Graves disease HEMATO-IMMUNOLOGIC - Denies excessive bleeding with cuts PAST HISTORY: MENSTRUAL HISTORY: LMP Known?- Definite Amount/Duration - 6-7 DAYS, LMP - 01/27/20 PHYSICAL EXAM Vital Signs: Temp Pulse Resp BP Pulse Ox 98.1 F 64 18 106/74 100 02/17/20 02:11 02/17/20 02:11 02/17/20 02:11 02/17/20 02:11 02/17/20 02:11 Oxygen Delivery Method Room Air Weight: 63.503 kg Body Mass Index (BMI) 24.0 Finger Stick Blood Glucose 110 CONSTITUTIONAL - NAD, well nourished, and well developed SKIN - No rash, lesions, or ulcers HEENT - Normocephalic, PERRLA, EOMI NECK - No nodes, no nuchal rigidity and thyroid normal size and texture LYMPH NODES - Palpation of lymph nodes in neck and groins within normal limits ABDOMEN - Without hepatosplenomegaly, distention, masses, rebound, or guarding; normal bowel sounds; no hernias and mild tenderness to deep palpation EXTREMITIES - No edema or calf tenderness NEUROLOGICAL - Cranial nerves II-XII grossly intact PSYCHIATRIC - A and O to time, place, person, mood and affect PELVIC - refused ASSESSMENT: 1. Pelvic And Perineal Pain PLAN BY DIAGNOSIS: 1. Pelvic And Perineal Pain CT scan shows possible small abscess of GI or [employer] etiology. Diverticulitis vs PID mentioned by radiology. However, WBC was normal and no fevers. Placed on IV antibiotics overnight for possible PID. Suspect fluid collections are from chronic PID versus ruptured ovarian cyst versus endometriosis, especially given multiple ectopic pregnancies. Agree that diverticulitis less likely with her age and no bowel symptoms. Since she is not acute, I agree with attempted drainage under CT guidance to help relieve some of her symptoms. Due to no fevers or elevated WBC, I would also not recommend surgical intervention at this time. After attempting or succeeding at CT drainage, I would recommend discharging to home on po pain meds (Ultram?) and oral antibiotic (Doxycycine 100 BID x 14 days and Flagyl 500 mg BID x 14 days). I would also recommend a single dose of Rocephin 250 mg before release. She should f/u with our office or her OBGYN in the next 1-2 weeks. Sooner if she has worsening pain or fevers.
--- NOTE | 2020-02-17 10:55 | CASEMGMT ---
THADDEUS WHALEY Face to Face with patient for initial transition planning/care coordination assessment. RN CM introduced self and role at [facility]. Patient lying in bed, alert and oriented. Patient willing to participate in assessment and is able to answer all questions appropriately. Care providers, pharmacy, and demographics verified. Patient wishes to discharge home, denies need for home health at this time. Patient states she has no further needs or concerns at this time. CM to follow for discharge planning needs that may arise. PCP: No PCP, list provided Specialists: None Preferred Pharmacy: [facility] Insurance: [place] Prescription Benefit: yes Living Will/HPOA: none LNOK: mom Living Arrangements: Patient lives with mother in a 2 story apartment. Patient states she is independent. Transportation: self/MOM DME/HHC: Patient denies need for DME or previous HHC. Disposition Plan: Patient to discharge home with family support and follow-up plans in place. Myriam PRAJAPATI, RN, CM
--- NOTE | 2020-02-17 13:47 | NURSING ---
pt to ct scan
--- NOTE | 2020-02-17 14:42 | MRI_ITS ---
STUDY: MR PELVIS WITH T WITHOUT CONTRAST REASON FOR EXAM: Female, 19 years old. Pelvic pain, PID -- pain since beginning of January, neg preg test, hx of 4 ectopic preg TECHNIQUE: Standardized fat and water weighted pulse sequences were obtained in all 3 orthogonal planes, pre-and post contrast administration. IV dotarem 10ml was administered for the contrast portion of the examination. COMPARISON: CT abdomen 02/16/2020. FINDINGS: 3.5 x 1.9 x 3.2 cm retrovesical collection with moderately thick walled enhancing rim. 3.3 x 3.2 x 4.7 cm collection in the cul-de-sac with moderately thick walled enhancing rim. This lies inferior to the sigmoid colon and anterior to the rectum. 3.2 x 2.4 x 7.9 cm collection with enhancing rim posterior to the uterus and medial to the left ovary. These collections are consistent with pelvic abscesses. Etiology is unclear. Normal urinary bladder. No bowel obstruction. Mild presacral edema. Trace free intraperitoneal fluid. Marrow signal is normal, with no fracture, bone contusion, or osteonecrosis. Normal joints. MRI/Pelvis W/WO Contrast IMPRESSION: Pelvic abscesses as described above. Electronically Signed: Milly Rosas MD at 18:03 EDT Tel , Service support ,
--- NOTE | 2020-02-17 15:10 | NURSING ---
Pt refused CT drainage during consent process with Dr. Griffith. Patient informed of purpose of drain and functionality, duration, and alternative options by this rn and doctor. Pt wishes to wait. Dr Griffith spoke with Dr Coronado, who would like pt sent to MRI. This RN spoke with THADDEUS Sorensen, to inform of refusal and new plan. Pt held in Radiology until MRI ready, just transported to MRI via bed. Pt resting comfortably. C/O pain to RLQ.
--- NOTE | 2020-02-17 16:35 | PCA ---
pt off floor
--- NOTE | 2020-02-17 23:00 | CT_ITS ---
STUDY: CT PELVIS WITH CONTRAST REASON FOR EXAM: Female, 19 years old. ABDOMEN PAIN X 3 WEEKS,FLUID SEEN ON C- CT AND US -- HX:4 ECTOPIC PREGNANCIES,2 C-SECTIONS RADIATION DOSAGE (If Supplied By Facility): CTDIvol = ( 21.53 ) mGy, DLP = ( 1256.45 ) mGycm TECHNIQUE: Transaxial imaging of the pelvis was performed without oral contrast. Oral and amp; IV Gastrografin and amp; 100mL Isovue-300 was administered intravenously. Individualized dose optimization techniques were used for this CT. COMPARISON: None. FINDINGS: There is diffuse thickening of the sigmoid colon and rectum with induration of the surrounding mesentery suggesting colitis or diverticulitis. There is NO obstruction. There is a loculated fluid collection in the pelvis measuring 2.8 cm. There is a similar-appearing loculated fluid collection between urinary bladder and uterus measuring 3 cm. These could be abscesses associated with diverticulitis. Smaller similar loculated fluid collections are seen in the LEFT hemipelvis measuring up to 15 mm which could be smaller early abscesses. Remainder of the bowel including the appendix is unremarkable. Uterus is unremarkable. Urinary bladder is unremarkable. Vascular structures are intact. There are reactive enlarged retroperitoneal lymph nodes. The bony structures are intact. CT/Pelvis WITH IV Contrast IMPRESSION: Suspected diverticulitis of the sigmoid colon with suspected multiple pelvic abscesses as described measuring up to 3 cm. Electronically Signed: Erasmo Ramirez MD at 1:24 EDT , Service support ,
[2020-02-18 03:30] VITALS: BP 97/49; PULSE 57; RESP 16; TEMP 36.9; O2SAT 97
[2020-02-18] MEDS: metroNIDAZOLE 500 MG/100 ML BAG 100 MG IV ×2 (05:28→13:36)
[2020-02-18 06:21] LABS: Absolute Lymphocyte Count 1.91 X10^3/uL (0.83-4.51); Absolute Neutrophil Count 2.3 X10^3/uL (2.0-7.7); Basophil# 0.01 X10^3/uL; Basophil% 0.2 % (0-1); Eosinophil# 0.06 X10^3/uL; Eosinophils% 1.3 % (0-5); Hematocrit 25.5 % (37-47); Hemoglobin 7.8 g/dL (12.0-15.0); Lymphocyte # 1.91 X10^3/ul (4.0); Mean Corp Hgb Conc 30.6 g/dL (32-36); Mean Corpuscular Hgb 22.9 pg (27.0-32.0); Mean Corpuscular Volume 74.8 fL (81-99); Mean Platelet Vol. 9.9 fl (6.2-12.0); Monocyte# 0.35 X10^3/uL; Monocyte% 7.5 % (0-10); NRBC Flagged by Analyzer 0 % (0-5); Neutrophil # 2.31 X10^3/uL (2.7-7.7); Neutrophil % 49.6 % (47-70); Platelet Count 378 K/mm3 (150-450); RBC Distribution Width CV 17.2 % (11.6-14.6); RBC Distribution Width SD 46.1 fl (35.1-43.9); Red Blood Count 3.41 M/mm3 (4.2-5.4); White Blood Count 4.7 K/mm3 (4.4-11.0)
[2020-02-18 06:46] LABS: Anion Gap 7 (5-15); BUN 3 mg/dL (7-18); Calcium,Total 7.9 mg/dL (8.5-10.1); Chloride 111 mmol/L (98-107); EST Glomerular Filtration Rate 134 mL/min (>60); Est Glom Filt Rate - Afr Amer 162 mL/min (>60); Estimated Creatinine Clearance 128.08 ml/min; Glucose 76 mg/dL (74-106); Potassium 3.6 mmol/L (3.5-5.1); Sodium Level 142 mmol/L (136-145)
[2020-02-18 08:00] VITALS: O2SAT 97
[2020-02-18 09:30] VITALS: BP 102/65; PULSE 75; RESP 18; TEMP 36.7; O2SAT 96
[2020-02-18] MEDS: 0.9% Normal Saline 1,000 ML 150 ML IV (09:43)
[2020-02-18 10:05] LABS: Hematocrit 25.1 % (37-47); Hemoglobin 7.5 g/dL (12.0-15.0)
--- NOTE | 2020-02-18 10:28 | PCM.PN.SRG ---
Patient Problems: Active and Suspected Problems (Last Reviewed 02/17/20 @ 05:[address] Josiah Matute MD) Abdominal pain (Acute) Pelvic abscess in female (Acute) Lower abdominal pain (Acute) Subjective: Patient states that her pain is less today than it was yesterday. No nausea or vomiting. Objective: Her abdomen is soft really no overt tenderness to palpation no rebound guarding or peritoneal signs are identified. - Physical Exam Vitals/I&O's: Vital Signs Temp Pulse Resp BP Pulse Ox 98.0 F 75 18 102/65 96 02/18/20 09:30 02/18/20 09:30 02/18/20 09:30 02/18/20 09:30 02/18/20 09:30 Oxygen Delivery Method Room Air Weight: 128 lb 8.472 oz Body Mass Index (BMI) 22.0 Finger Stick Blood Glucose 110 Intake and Output for Last 24 Hours 02/16/20 02/17/20 02/18/20 23:59 23:59 23:59 Intake Total 3821.67 / 3941.67 2108 Balance 3821.67 / 3941.67 2108 Laboratory Results 02/18/20 06:02: WBC 4.7, RBC 3.41 L, Hgb 7.8 L, Hct 25.5 L, MCV 74.8 L, MCH 22.9 L, MCHC 30.6 L, RDW Std Deviation 46.1 H, RDW Coeff of Elaine 17.2 H, Plt Count 378, MPV 9.9, Immature Gran % (Auto) 0.400, Neut % (Auto) 49.6, Lymph % (Auto) 41.0, [place] % (Auto) 7.5, Eos % (Auto) 1.3, Baso % (Auto) 0.2, Absolute Neuts (auto) 2.3, Absolute Lymphs (auto) 1.91, Nucleated RBC % 0 02/18/20 06:02: Sodium 142, Potassium 3.6, Chloride 111 H, Carbon Dioxide 24.0, Anion Gap 7, BUN 3 L, Creatinine 0.60, Estim Creat Clear Calc 128.08, Est GFR (MDRD) Af Amer 162, Est GFR (MDRD) Non-Af 134, BUN/Creatinine Ratio 5.0 L, Glucose 76, Calcium 7.9 L 02/18/20 09:56: Hgb 7.5 L, Hct 25.1 L Current Medications Acetaminophen (Tylenol) 650 mg PO Q6H PRN PRN PRN Reason: Pain Score 1-10/Temp > 100.7 F Dextrose (D50w Syringe) 0 gm IV X1 PRN; Protocol PRN Reason: Hypoglycemia Diphenhydramine HCl (Benadryl) 25 mg IV Q6H PRN PRN PRN Reason: ITCHING Glucagon () 1 mg IM .X1 PRN PRN Reason: Hypoglycemia Ampicillin Sodium/Sulbactam (Sodium 3 gm/ Sodium Chloride) 112 mls @ 150 mls/hr IV Q6 [facility] Last Infusion: 02/18/20 06:41 Dose: Infused Documented by: Doxycycline Hyclate 100 mg/ (Dextrose) 260 mls @ 250 mls/hr IV Q12 [facility] Last Admin: 02/18/20 09:43 Dose: 250 mls/hr Documented by: Metronidazole (Flagyl) 500 mg in 100 mls @ 100 mls/hr IV Q8 [facility] Last Infusion: 02/18/20 06:41 Dose: Infused Documented by: Morphine Sulfate () 2 mg IV Q3H PRN PRN PRN Reason: Pain Score 6-10/10 Last Admin: 02/17/20 08:56 Dose: 2 mg Documented by: Ondansetron HCl (Zofran) 4 mg IV Q8H PRN PRN PRN Reason: NAUSEA/VOMITING Prochlorperazine Edisylate (Compazine Iv) 5 mg IV Q4H PRN PRN PRN Reason: Breakthrough nausea/vomiting Sodium Chloride () 10 - 40 ml IV UD PRN PRN Reason: SALINE FLUSH Medical Necessity - Tobacco Use Smoking Status: Current every day smoker Tobacco Use: Cigarettes Assessment/Plan All Active Problems (Last Reviewed 02/17/20 @ 05:[address] Josiah Matute MD) Graves disease (Resolved) Abdominal pain (Acute) Pelvic abscess in female (Acute) Lower abdominal pain (Acute) Diabetes in (Ruled-out) At this point I have no surgical interventions planned for her during this hospitalization. I doubt diverticulitis is the source of any of this problem. Agree that this is more likely pelvic inflammatory disease. Inpatient E&M: 52535 Subs Hosp L2
--- NOTE | 2020-02-18 11:29 | PN.OBGYN_ITS ---
Patient Problems: Active and Suspected Problems (Last Reviewed 02/17/20 @ 05:[address] Josiah Matute MD) Abdominal pain (Acute) Pelvic abscess in female (Acute) Lower abdominal pain (Acute) Subjective: Patient without complaints except some mild pain. Pain is quite a bit better on IV antibiotics. At present there is no plans to attempt drainage of the small pockets of fluid in her abdomen. - Physical Exam Vitals/I&O's: Vital Signs Temp Pulse Resp BP Pulse Ox 98.0 F 75 18 102/65 96 02/18/20 09:30 02/18/20 09:30 02/18/20 09:30 02/18/20 09:30 02/18/20 09:30 Oxygen Delivery Method Room Air Weight: 128 lb 8.472 oz Body Mass Index (BMI) 22.0 Finger Stick Blood Glucose 110 Intake and Output for Last 24 Hours 02/16/20 02/17/20 02/18/20 23:59 23:59 23:59 Intake Total 3821.67 / 3941.67 2108 Balance 3821.67 / 3941.67 2108 Laboratory Results 02/18/20 06:02: WBC 4.7, RBC 3.41 L, Hgb 7.8 L, Hct 25.5 L, MCV 74.8 L, MCH 22.9 L, MCHC 30.6 L, RDW Std Deviation 46.1 H, RDW Coeff of Elaine 17.2 H, Plt Count 378, MPV 9.9, Immature Gran % (Auto) 0.400, Neut % (Auto) 49.6, Lymph % (Auto) 41.0, [place] % (Auto) 7.5, Eos % (Auto) 1.3, Baso % (Auto) 0.2, Absolute Neuts (auto) 2.3, Absolute Lymphs (auto) 1.91, Nucleated RBC % 0 02/18/20 06:02: Sodium 142, Potassium 3.6, Chloride 111 H, Carbon Dioxide 24.0, Anion Gap 7, BUN 3 L, Creatinine 0.60, Estim Creat Clear Calc 128.08, Est GFR (MDRD) Af Amer 162, Est GFR (MDRD) Non-Af 134, BUN/Creatinine Ratio 5.0 L, Glucose 76, Calcium 7.9 L 02/18/20 09:56: Hgb 7.5 L, Hct 25.1 L Current Medications Acetaminophen (Tylenol) 650 mg PO Q6H PRN PRN PRN Reason: Pain Score 1-10/Temp > 100.7 F Dextrose (D50w Syringe) 0 gm IV X1 PRN; Protocol PRN Reason: Hypoglycemia Diphenhydramine HCl (Benadryl) 25 mg IV Q6H PRN PRN PRN Reason: ITCHING Glucagon () 1 mg IM .X1 PRN PRN Reason: Hypoglycemia Ampicillin Sodium/Sulbactam (Sodium 3 gm/ Sodium Chloride) 112 mls @ 150 mls/hr IV Q6 [facility] Last Infusion: 02/18/20 06:41 Dose: Infused Documented by: Doxycycline Hyclate 100 mg/ (Dextrose) 260 mls @ 250 mls/hr IV Q12 [facility] Last Admin: 02/18/20 09:43 Dose: 250 mls/hr Documented by: Metronidazole (Flagyl) 500 mg in 100 mls @ 100 mls/hr IV Q8 [facility] Last Infusion: 02/18/20 06:41 Dose: Infused Documented by: Morphine Sulfate () 2 mg IV Q3H PRN PRN PRN Reason: Pain Score 6-10/10 Last Admin: 02/17/20 08:56 Dose: 2 mg Documented by: Ondansetron HCl (Zofran) 4 mg IV Q8H PRN PRN PRN Reason: NAUSEA/VOMITING Prochlorperazine Edisylate (Compazine Iv) 5 mg IV Q4H PRN PRN PRN Reason: Breakthrough nausea/vomiting Sodium Chloride () 10 - 40 ml IV UD PRN PRN Reason: SALINE FLUSH Medical Necessity - Tobacco Use Smoking Status: Current every day smoker Tobacco Use: Cigarettes Assessment/Plan All Active Problems (Last Reviewed 02/17/20 @ 05:[address] Josiah Matute MD) Graves disease (Resolved) Abdominal pain (Acute) Pelvic abscess in female (Acute) Lower abdominal pain (Acute) Diabetes in (Ruled-out) Likely mild PID. At this point I believe surgical intervention is not warranted. The patient may be discharged home soon on oral antibiotics from a ASSISTANT standpoint.
[2020-02-18 12:52] LABS: Ferritin 6 ng/mL (8-252); Iron 10 ug/dL (50-170); Iron Binding Capacity,Total 297 ug/dL (250-450); PERCENT IRON SATURATION 3.4 % (15.0-55.0)
[2020-02-18 13:38] VITALS: BP 108/78; PULSE 72; RESP 18; TEMP 36.6; O2SAT 97
--- NOTE | 2020-02-18 14:06 | DCINST_ITS ---
- Discharge Diagnoses Current Active Problems: Current Active and Chronic Problems (Last Reviewed 02/17/20 @ 05:[address] Josiah Matute MD) Abdominal pain (Acute) Pelvic abscess in female (Acute) Lower abdominal pain (Acute) You will use the following diet at home:: No restrictions Your food should be the consistency of: Regular Your liquids should be the consistency of: Regular/Thin Discharge Activity: Return to Normal Activity Weight Bearing Status: Weight bearing as tolerated Call your doctor if you observe: Fever of 101 or Higher, Shortness of breath, Dizziness, Fainting spells, Swelling in the ankles, Increased palpitations (irregular heartbeat) Instructions: ED Abscess Antibiotic Treatment Only, ED Anemia Iron Deficiency, Anemia Additional Instructions: for follow up CBC on Thursday02/20/2020 Allergies/Adverse Reactions: Allergies levothyroxine sodium [From Synthroid] Allergy (Mild, Verified 02/17/20 04:32) Itching Medications to take at Discharge Doxycycline 100 mg PO BID #28 cap 02/18/20 Ferrous Sulfate 325 mg PO TIDCM #90 tab 02/18/20 Metronidazole 500 mg PO [id number] #56 tab 02/18/20 The following prescriptions were given: Doxycycline 100 mg PO BID #28 cap Transmission Status: Received by [facility] Ferrous Sulfate 325 mg PO TIDCM #90 tab Transmission Status: Received by [facility] Metronidazole 500 mg PO [id number] #56 tab Transmission Status: Received by [facility] Primary Care Physician: Care Physician,No Primary [Primary Care Provider] - Test Results: Test results from this visit will be discussed in further detail at your follow- up appointment, if applicable. Please Follow Up With: Tej Anton MD When: in 1-2 weeks; call office to set up PCP appointment Please Follow Up With: Matt Burnett MD When: 1 week Proposed Discharge Date: 02/18/20
--- NOTE | 2020-02-18 14:13 | PCM.DC.SUM ---
Discharge Date and Diagnosis - Problem List Patient Problems: Active and Suspected Problems (Last Reviewed 02/17/20 @ 05:[address] Josiah Matute MD) Abdominal pain (Acute) Pelvic abscess in female (Acute) Lower abdominal pain (Acute) Date of Admission: 02/17/20 Date of Discharge: 02/18/20 - Primary Discharge Diagnosis Acute Problems: Active Problems (Last Reviewed 02/17/20 @ 05:[address] Josiah Matute MD) Abdominal pain (Acute) Pelvic abscess in female (Acute) Lower abdominal pain (Acute) - Secondary Discharge Diagnosis Chronic Problems: Chronic Problems (Last Reviewed 02/17/20 @ 05:[address] Josiah Matute MD) Diabetes (Chronic) Graves disease (Chronic) History of delivery affecting (Chronic) considering Hypothyroidism affecting (Chronic) h/o thyroid removal. ordered testing Epilepsy (Chronic) neuro consult. no meds. last seizure 07/15 Family history of spina bifida (Chronic) 4 mg folic acid History of marijuana use (Chronic) encouraged cessation Migraine (Chronic) Convulsion, non-epileptic (Chronic) Hypothyroid (Chronic) Hospital Course and Treatment Imaging Results: Diagnostic Data Abdomen/Pelvis CT 02/16/20 18:10 IMPRESSION: Examination is limited due to the lack of intravenous contrast. An acute process is noted within the pelvis but is poorly characterized. The proximal appendix is normal however the distal appendix is obscured by this process. Favor a gynecologic process such as a possible ruptured ectopic however if that is a valid clinical concern. Consider contrast-enhanced MRI for further evaluation and to avoid further irradiation of this young patient. Electronically Signed: Jayjay Mariscal, at 19:39 EDT Tel , Service support , ADDENDUM: 02/16/201953 IMPRESSION: Examination is limited due to the lack of intravenous contrast. An acute process is noted within the pelvis but is poorly characterized. The proximal appendix is normal however the distal appendix is obscured by this process. Favor a gynecologic process such as a possible ruptured ectopic however if that is a valid clinical concern. Consider contrast-enhanced MRI for further evaluation and to avoid further irradiation of this young patient. N.B. : The above information has been verbally conveyed by Jayjay Mariscal to Chicho Springer MD, on 02/16/2020 19:47:55 (ET). Electronically Signed: Jayjay Mariscal, at 19:39 EDT Tel , Service support , Pelvis Ultrasound 02/16/20 19:44 IMPRESSION: Again noted is enlargement of the uterus. 3.4 cm complex cyst of the right ovary. Elliptical fluid collection located between the uterus and the bladder of uncertain etiology. As indicated on the prior ultrasound report, recommend further evaluation with contrasted MRI. Electronically Signed: Nick Carpio MD at 22:44 EDT , Service support , Pelvis MRI 02/17/20 14:42 IMPRESSION: Pelvic abscesses as described above. Electronically Signed: Milly Rosas MD at 18:03 EDT Tel , Service support , Pelvis CT 02/17/20 23:00 IMPRESSION: Suspected diverticulitis of the sigmoid colon with suspected multiple pelvic abscesses as described measuring up to 3 cm. Electronically Signed: Erasmo Ramirez MD at 1:24 EDT , Service support , general surgery- Dr Anne gynecology- Dr Burnett Operations: None Procedures: None Summary of Care Provided: The patient is a 19 year old F with a past medical history as outlined was admitted through the ED on 02/17/2020 with a complaint of right lower abdominal pain which had been going on since the first week of January 2020. Pain had progressively been worsening and radiated to the left lower quadrant of her abdomen and was worsened with moving, talking and deep breathing. Pain improved with rest. She had no assisted fever or chills or nausea or vomiting. Her last. Was the first week of December 2019. On admission, test done was negative and abdominopelvic CT done without contrast showed an acute process in the pelvis which was poorly characterized. Pelvic ultrasound done showed enlargement of the uterus with a 3.4 cm complex cyst of the right ovary and elliptical fluid collection located between the uterus and the bladder of uncertain etiology. Pelvic CT with IV contrast showed suspected diverticulitis of the sigmoid colon with multiple pelvic abscesses. General surgery was consulted and gynecology also consulted. Patient was admitted IV doxycycline to cover metronidazole and IV Unasyn. General surgery reviewed patient and per their documentation, diverticulitis with abscess and a 19-year-old was quite unlikely and it was concerning the patient may have PID. Patient also stated she had lost a about 2 months ago and it was thought that this may have something to do with that as well. Gynecology reviewed patient in the differentials were fluid collection from chronic PID versus ruptured ovarian cyst versus empiric treatment uses especially given multiple ectopic pregnancies. Patient refused to allow gynecology to examine her. Drainage of the abscess this was attempted by radiology but patient refused procedure. Patient's hemoglobin was noted to be dropping; it dropped from 9.8 on admission to 7.5. There was no clear evidence of bleeding. Patient's abdominal pain resolved. Iron panel check showed severe iron deficiency anemia. Patient also denied being in here. And also denied having any dark stools. Orthostatics checked were negative and patient had no tachycardia. All cell lines to anemia white cell count and platelets also dropped old hemodilution may also play a role. Patient was given a dose of IV Venofer and started on oral iron supplements. I did discuss the low hemoglobin with Dr. Burnett was on consult for gynecology, about whether it could possibly be related to the pelvic abscesses. He did not think this was the likely cause especially as patient was completely asymptomatic and thought it was more hemodilution all and chronic anemia. Patient is therefore to have a follow-up CBC on 02/20/2020. She is to follow-up with her primary care doctor and to follow-up with gynecology within 1 week. She received 1 dose of IV ceftriaxone to 50 mg x 1. Gynecology recommendation she was discharged home on p.o. doxycycline 100 mg twice daily for 14 days and p.o. metronidazole 500 mg every 6 hours for 14 days. She was referred to [place] [facility] to set up a PCP relationship. Patient seen and examined prior to discharge. She had no complaitns. Review of systems was otherwise negative. Labs and vitals reviewed. Home meds reviewed and reconciled. o/e: Vital Signs Temp Pulse Resp BP Pulse Ox 98.3 F 62 16 112/67 94 02/18/20 14:32 02/18/20 14:32 02/18/20 14:32 02/18/20 14:32 02/18/20 14:32 [] General: Alert, Oriented x3, Cooperative, No apparent distress HEENT: Atraumatic, PERRLA, EOMI, Normocephalic Oral: Dry Mucosa Neck: Supple, No JVD, Negative Carotid Bruits, Negative Hepatojugular Reflux, No Nodes Lungs: Clear to auscultation, Normal air movement, No rhonchi, No wheeze Cardiovascular: Regular Rhythm, Normal S1, Normal S2, No murmurs, Bradycardic Abdomen: Bowel Sounds Present, Soft, - - non tender, no organomegaly Extremities: No clubbing, No cyanosis, No edema, Capillary Refill Less than 3 Seconds Skin: No rashes, No breakdown Musculoskeletal: No Tenderness to Palpation of Joints or Extremities Lymphatic: No Cervical, Supraclavicular, or Inguinal Adenopathy Neurological: Cranial nerves II-XII grossly intact, Neuro grossly intact, Motor Exam 5/5 strength throughout Psych/Mental Status: Normal Affect, Appropriate, Alert and oriented to time, place, person, mood and affect She is to have follow up CBC checked when she follows with gynecology early next week. Patient Problems: Active and Suspected Problems (Last Reviewed 02/17/20 @ 05:[address] Josiah Matute MD) Abdominal pain (Acute) Pelvic abscess in female (Acute) Lower abdominal pain (Acute) - Physical Exam Vitals/I&O's: Vital Signs Temp Pulse Resp BP Pulse Ox 97.8 F 72 18 108/78 97 02/18/20 13:38 02/18/20 13:38 02/18/20 13:38 02/18/20 13:38 02/18/20 13:38 Oxygen Delivery Method Room Air Weight: 128 lb 8.472 oz Body Mass Index (BMI) 22.0 Finger Stick Blood Glucose 110 Intake and Output for Last 24 Hours 02/16/20 02/17/20 02/18/20 23:59 23:59 23:59 Intake Total 3821.67 / 3941.67 2923.5 / 2923.5 Balance 3821.67 / 3941.67 2923.5 / 2923.5 Laboratory Results 02/18/20 06:02: WBC 4.7, RBC 3.41 L, Hgb 7.8 L, Hct 25.5 L, MCV 74.8 L, MCH 22.9 L, MCHC 30.6 L, RDW Std Deviation 46.1 H, RDW Coeff of Elaine 17.2 H, Plt Count 378, MPV 9.9, Immature Gran % (Auto) 0.400, Neut % (Auto) 49.6, Lymph % (Auto) 41.0, [place] % (Auto) 7.5, Eos % (Auto) 1.3, Baso % (Auto) 0.2, Absolute Neuts (auto) 2.3, Absolute Lymphs (auto) 1.91, Nucleated RBC % 0 02/18/20 06:02: Sodium 142, Potassium 3.6, Chloride 111 H, Carbon Dioxide 24.0, Anion Gap 7, BUN 3 L, Creatinine 0.60, Estim Creat Clear Calc 128.08, Est GFR (MDRD) Af Amer 162, Est GFR (MDRD) Non-Af 134, BUN/Creatinine Ratio 5.0 L, Glucose 76, Calcium 7.9 L 02/18/20 06:02: Iron 10 L, TIBC 297, Iron Saturation 3.4 L, Ferritin 6 L 02/18/20 09:56: Hgb 7.5 L, Hct 25.1 L Current Medications Acetaminophen (Tylenol) 650 mg PO Q6H PRN PRN PRN Reason: Pain Score 1-10/Temp > 100.7 F Dextrose (D50w Syringe) 0 gm IV X1 PRN; Protocol PRN Reason: Hypoglycemia Diphenhydramine HCl (Benadryl) 25 mg IV Q6H PRN PRN PRN Reason: ITCHING Glucagon () 1 mg IM .X1 PRN PRN Reason: Hypoglycemia Ampicillin Sodium/Sulbactam (Sodium 3 gm/ Sodium Chloride) 112 mls @ 150 mls/hr IV Q6 [facility] Last Infusion: 02/18/20 12:39 Dose: Infused Documented by: Doxycycline Hyclate 100 mg/ (Dextrose) 260 mls @ 250 mls/hr IV Q12 [facility] Last Infusion: 02/18/20 11:32 Dose: Infused Documented by: Metronidazole (Flagyl) 500 mg in 100 mls @ 100 mls/hr IV Q8 [facility] Last Admin: 02/18/20 13:36 Dose: 100 mls/hr Documented by: Iron Sucrose 200 mg/ Sodium (Chloride) 110 mls @ 220 mls/hr IV X1 ONE Stop: 02/18/20 14:59 Morphine Sulfate () 2 mg IV Q3H PRN PRN PRN Reason: Pain Score 6-10/10 Last Admin: 02/17/20 08:56 Dose: 2 mg Documented by: Ondansetron HCl (Zofran) 4 mg IV Q8H PRN PRN PRN Reason: NAUSEA/VOMITING Prochlorperazine Edisylate (Compazine Iv) 5 mg IV Q4H PRN PRN PRN Reason: Breakthrough nausea/vomiting Sodium Chloride () 10 - 40 ml IV UD PRN PRN Reason: SALINE FLUSH Sodium Chloride () 10 - 40 ml IV UD PRN PRN Reason: SALINE FLUSH Discharge Diet: Low fat/ Low Cholesterol Discharge Activity: Return to Normal Activity Weight Bearing Status: Weight bearing as tolerated Call your doctor if you observe: Fever of 101 or Higher, Shortness of breath, Dizziness, Fainting spells, Swelling in the ankles, Increased palpitations (irregular heartbeat) Home Medications: Medications to take at Discharge Doxycycline 100 mg PO BID #28 cap 02/18/20 Ferrous Sulfate 325 mg PO TIDCM #90 tab 02/18/20 Metronidazole 500 mg PO [id number] #56 tab 02/18/20 Following Prescrptions Were Given to Patient: Doxycycline 100 mg PO BID #28 cap Transmission Status: Received by [facility] Ferrous Sulfate 325 mg PO TIDCM #90 tab Transmission Status: Received by [facility] Metronidazole 500 mg PO [id number] #56 tab Transmission Status: Received by [facility] Primary Care Physician: Care Physician,No Primary [Primary Care Provider] - Please Follow Up With: Tej Anton MD When: in 1-2 weeks; call office to set up PCP appointment Please Follow Up With: Matt Burnett MD When: 1 week Patient Instructions: Anemia, ED Abscess Antibiotic Treatment Only, ED Anemia Iron Deficiency Disposition: Home Minutes spent on discharge:: 45 Patient Condition:: Stable Medical Necessity - Tobacco Use Smoking Status: Current every day smoker Tobacco Use: Cigarettes Meaningful Use Info Meaningful Use Diagnoses (Choose all that apply): None applicable Inpatient E&M: 17829 Disch Hosp
[2020-02-18 14:31] VITALS: BP 109/67; BP 112/67; BP 112/82; PULSE 62; PULSE 67; PULSE 81
[2020-02-18 14:32] VITALS: BP 112/67; PULSE 62; RESP 16; TEMP 36.8; O2SAT 94
== END 2020-02-18 16:01 | disposition home or self-care (01) | DRG 531 ==
LOC: ED 02-17 03:27 → MS3 02-17 05:36
PROVIDERS: Admitting Provider Hospitalist; Emergency Provider Emergency Medicine; Visit Provider Student in an Organized Health Care Education/Training Program
DX: N73.9 Female pelvic inflammatory disease, unspecified (principal); E11.9 Type 2 diabetes mellitus without complications; E89.0 Postprocedural hypothyroidism; N83.291 Other ovarian cyst, right side; F17.210 Nicotine dependence, cigarettes, uncomplicated; I95.9 Hypotension, unspecified; D64.9 Anemia, unspecified
CPT/HCPCS: 36415; 72193; 72197; 74176; 76856; 80048; 81001; 82728; 83540; 83550; 84703; 85014; 85018; 85025; 93976; 99284; 99406; A9575; J1756; J7030; J7040; Q9967; A4216; J0295; J2405

== ENCOUNTER 2020-06-08 03:46 | Emergency (ER) | payer MEDICAID, SELFPAY ==
[2020-02-17 04:17] VITALS: BMI 22.0
[2020-06-08 03:46] VITALS: BP 121/84; PULSE 66; RESP 16; TEMP 36.9; O2SAT 100; BMI 25.2
--- NOTE | 2020-06-08 03:59 | ED.DCSUM_ITS ---
History of Present Illness Chief Complaint: Abd Pain Informant: Patient - Abdominal Pain/Flank Pain Onset: Days - 10 Context: Gradual Onset Timing: Intermittent, Lasts - hrs Quality: Aching Location: - - Pelvis/suprapubic Current Severity: Moderate Maximum Severity: Moderate Worsened by: Movement Relieved by: Nothing - Nausea/Vomiting/Emesis GI Symptom: Negative for: Nausea, Vomiting - Diarrhea/Melena/Hematochezia GI Symptom: Negative for: Diarrhea, Melena, Hematochezia Associated Symptoms: Negative for: Dysuria, Frequency, Hematuria, Urgency Narrative: Patient presented 4 AM for pain that is been going on for 10 days, intermittently, with no other associated symptoms. She states in her pelvis where she is having pain, it hurts just to barely press on the skin. She states this feels distinctly different from menstrual cramps. Also, she had pelvic abscesses several months ago that she was admitted to the hospital for, she states that pain was way more severe than this, and this does not feel similar. She denies any vaginal discharge or bleeding, her last menstrual cycle was 5 or 6 weeks ago and she is usually irregular. She has taken many urine home test and they have all been negative. She denies any fevers, chills, urinary symptoms, nausea, vomiting, diarrhea or other abnormal bowel movements. There is been no radiation into her low back or elsewhere until tonight, where she is feeling some mild discomfort in her low back. It is nonlateralizing, and her suprapubic discomfort has also been nonlateralizing. No history of any abdominal surgeries except a . - Past Medical History (1) Convulsion, non-epileptic Status: Chronic (2) Diabetes Status: Chronic (3) Epilepsy Status: Chronic Comment: neuro consult. no meds. last seizure 07/15 (4) Graves disease Status: Chronic (5) Hypothyroid Status: Chronic Past Medical History - Allergies and Home Meds Allergies/Adverse Reactions: Allergies levothyroxine sodium [From Synthroid] Allergy (Mild, Verified 06/08/20 03:50) Itching Primary Care Physician: Care Physician,No Primary [Primary Care Provider] - Smoking Status: Current every day smoker Review of Systems General: Denies: Chills, Fever, Sweats Eyes: Denies: Visual changes - bilaterally, Diplopia ENT: Denies: Rhinorrhea, Sore throat Cardiovascular: Denies: Chest pain, Palpitations Respiratory: Denies: Dyspnea, Cough, Dyspnea on exertion Gastrointestinal: Reports: Abdominal pain. Denies: Nausea, Vomiting, Diarrhea, Melena, Hematochezia Genitourinary: Denies: Dysuria, Hematuria, Frequency Musculoskeletal: Reports: Back pain. Denies: Neck pain, Swelling, Extremity Pain Skin: Denies: Rash, Wounds Neurological: Denies: Headache, Weakness, Numbness Physical Exam Vital Signs/Narrative: Vital Signs Temp Pulse Resp BP Pulse Ox 06/08/20 03:46 98.5 F 66 16 121/84 H 100 Inital Vital Signs reviewed: Yes General: Well nourished, Well developed, No Acute Distress - Well-appearing Head: Normocephalic, Atraumatic Eyes: Perrl, EOMI ENT: Moist mucous membranes, No rhinorrhea Neck: Supple, Nontender Cardiovascular: Regular rate, Regular rhythm, No murmurs Respiratory: No distress, CTA bilaterally, Chest nontender Abdomen: Soft, Nondistended, Normal bowel sounds, No masses, Tender - Mild throughout suprapubic region, otherwise nontender. No tenderness at McBurney's point or the left lower quadrant., - - Normal inspection of the abdominal wall. Negative for: Guarding, Rebound tenderness Back: Nontender, Normal Inspection. Negative for: CVA tenderness Extremities: Nontender, No edema Skin: Normal color, No rash, No Trauma Neurological: Alert, Oriented x3, Cranial nerves II-XII grossly intact, Normal Strength, Normal Sensation Psychological: Normal affect, Normal Mood Diagnostic/Tx/Re-eval Laboratory Tests 06/08/20 06/08/20 06/08/20 Range/Units 04:10 04:05 04:05 WBC (4.4-11.0) K/mm3 RBC (4.2-5.4) M/mm3 Hgb (12.0-15.0) g/dL Hct (37-47) % MCV (81-99) fL MCH (27.0-32.0) pg MCHC (32-36) g/dL RDW Std Deviation (35.1-43.9) fl RDW Coeff of Elaine (11.6-14.6) % Plt Count (150-450) K/mm3 MPV (6.2-12.0) fl Immature Gran % (Auto) (0.0-0.9) % Neut % (Auto) (47-70) % Lymph % (Auto) (19-41) % Holmes % (Auto) (0-10) % Eos % (Auto) (0-5) % Baso % (Auto) (0-1) % Absolute Neuts (auto) (2.0-7.7) X10^3/uL Absolute Lymphs (auto) (0.83-4.51) X10^3/uL Nucleated RBC % (0-5) % Sodium 139 (136-145) mmol/L Potassium 3.4 L (3.5-5.1) mmol/L Chloride 105 (98-107) mmol/L Carbon Dioxide 28.0 (21.0-32.0) mmol/L Anion Gap 6 (5-15) BUN 11 (7-18) mg/dL Creatinine 0.83 (0.55-1.02) mg/dL Estim Creat Clear Calc 92.59 ml/min Est GFR (MDRD) Af Amer 111 (>60) mL/min Est GFR (MDRD) Non-Af 91 (>60) mL/min BUN/Creatinine Ratio 13.2 (10-20) RATIO Glucose 115 H (74-106) mg/dL Calcium 8.8 (8.5-10.1) mg/dL Serum , Qual NEGATIVE Negative Urine Color Yellow (Yellow) Urine Clarity Clear (Clear) Urine pH 6.5 (5.0 - 8.0) Ur Specific [place] 1.020 (1.002-1.030) Urine Protein 30 H (Negative) mg/dl Urine Glucose (UA) Normal (Normal) mg/dl Urine Ketones 5 H (Negative) mg/dl Urine Occult Blood Negative (Negative) /ul Urine Nitrite Negative (Negative) Urine Bilirubin Negative (Negative) mg/dL Urine Urobilinogen 4 H (Normal) mg/dl Ur Leukocyte Esterase 100 H (Negative) /ul Urine RBC 0-5 SEEN (0-5) /hpf Urine WBC 25-50 SEEN (0-5) /hpf Ur Squamous Epith Cells 0-5 SEEN (5-10) /hpf Urine Bacteria RARE (None Seen) /hpf Urine Mucus 1+ (<or=2+) /hpf 06/08/20 Range/Units 04:05 WBC 7.1 (4.4-11.0) K/mm3 RBC 3.96 L (4.2-5.4) M/mm3 Hgb 9.7 L (12.0-15.0) g/dL Hct 31.1 L (37-47) % MCV 78.5 L (81-99) fL MCH 24.5 L (27.0-32.0) pg MCHC 31.2 L (32-36) g/dL RDW Std Deviation 49.6 H (35.1-43.9) fl RDW Coeff of Elaine 17.3 H (11.6-14.6) % Plt Count 327 (150-450) K/mm3 MPV 9.8 (6.2-12.0) fl Immature Gran % (Auto) 0.100 (0.0-0.9) % Neut % (Auto) 61.5 (47-70) % Lymph % (Auto) 30.8 (19-41) % Holmes % (Auto) 6.6 (0-10) % Eos % (Auto) 0.7 (0-5) % Baso % (Auto) 0.3 (0-1) % Absolute Neuts (auto) 4.4 (2.0-7.7) X10^3/uL Absolute Lymphs (auto) 2.19 (0.83-4.51) X10^3/uL Nucleated RBC % 0 (0-5) % Sodium (136-145) mmol/L Potassium (3.5-5.1) mmol/L Chloride (98-107) mmol/L Carbon Dioxide (21.0-32.0) mmol/L Anion Gap (5-15) BUN (7-18) mg/dL Creatinine (0.55-1.02) mg/dL Estim Creat Clear Calc ml/min Est GFR (MDRD) Af Amer (>60) mL/min Est GFR (MDRD) Non-Af (>60) mL/min BUN/Creatinine Ratio (10-20) RATIO Glucose (74-106) mg/dL Calcium (8.5-10.1) mg/dL Serum , Qual Negative Urine Color (Yellow) Urine Clarity (Clear) Urine pH (5.0 - 8.0) Ur Specific [place] (1.002-1.030) Urine Protein (Negative) mg/dl Urine Glucose (UA) (Normal) mg/dl Urine Ketones (Negative) mg/dl Urine Occult Blood (Negative) /ul Urine Nitrite (Negative) Urine Bilirubin (Negative) mg/dL Urine Urobilinogen (Normal) mg/dl Ur Leukocyte Esterase (Negative) /ul Urine RBC (0-5) /hpf Urine WBC (0-5) /hpf Ur Squamous Epith Cells (5-10) /hpf Urine Bacteria (None Seen) /hpf Urine Mucus (<or=2+) /hpf - Medical Decision Making Other than mild anemia her tests are negative/normal, including a serum qualitative hCG which is negative, except for urinalysis which showed signs of infection. We will treat her empirically for a urinary/bladder infection, and I also sent GC and chlamydia. When she was admitted to the hospital for pelvic abscesses of unknown etiology, it was hypothesized that this was from PID. She has had negative GC and chlamydia tests in the past. She has no student finance specialist or PCP. She will be referred to the next doctor on the unassigned list for primary care to follow-up with if her symptoms do not resolve. She is comfortable with that plan. ED Disposition - Plan for ED Patient: Disposition: Home or Assisted Living Diagnosis: Lower urinary tract infection, acute Instructions: ED CYSTITIS Female Adult Prescriptions: Sulfamethoxazole/Trimethoprim [Bactrim Ds Tablet] 1 ea PO BID #14 tab Transmission Status: Pending to [facility] #30 Referrals: Judy Persaud MD [STAFF PHYSICIAN] - 1 Week if not improving
[2020-06-08 04:14] LABS: Absolute Lymphocyte Count 2.19 X10^3/uL (0.83-4.51); Absolute Neutrophil Count 4.4 X10^3/uL (2.0-7.7); Basophil# 0.02 X10^3/uL; Basophil% 0.3 % (0-1); Eosinophil# 0.05 X10^3/uL; Eosinophils% 0.7 % (0-5); Hematocrit 31.1 % (37-47); Hemoglobin 9.7 g/dL (12.0-15.0); Lymphocyte # 2.19 X10^3/ul (4.0); Lymphocyte % 30.8 % (19-41); Mean Corp Hgb Conc 31.2 g/dL (32-36); Mean Corpuscular Hgb 24.5 pg (27.0-32.0); Mean Corpuscular Volume 78.5 fL (81-99); Mean Platelet Vol. 9.8 fl (6.2-12.0); Monocyte# 0.47 X10^3/uL; Monocyte% 6.6 % (0-10); NRBC Flagged by Analyzer 0 % (0-5); Neutrophil # 4.37 X10^3/uL (2.7-7.7); Neutrophil % 61.5 % (47-70); Platelet Count 327 K/mm3 (150-450); RBC Distribution Width CV 17.3 % (11.6-14.6); RBC Distribution Width SD 49.6 fl (35.1-43.9); Red Blood Count 3.96 M/mm3 (4.2-5.4); White Blood Count 7.1 K/mm3 (4.4-11.0)
[2020-06-08 04:19] LABS: Color, Urine Yellow (Yellow); Glucose, Dipstick Normal (Normal); Ketone-Dipstick 5 mg/dl (Negative); Leukocyte Esterase-Dipstick 100 /ul (Negative); Nitrite-Dipstick Negative (Negative); Occult Blood-Urine Negative /ul (Negative); Protein-Dipstick 30 mg/dl (Negative); Urine Bilirubin Dipstick Negative (Negative); Urine Clarity Clear (Clear); Urine Urobilinogen 4 mg/dl (Normal); Urine pH 6.5 (5.0 - 8.0)
[2020-06-08 04:26] LABS: White Blood Cells 25-50 SEEN /hpf (0-5)
[2020-06-08 04:27] LABS: Internal QC Validated? YES +Cl - CLEAR BKGD; Pregnancy, Serum, hCG Quali. NEGATIVE Negative
[2020-06-08 04:27] LABS: Red Blood Cells-Urine 0-5 SEEN /hpf (0-5)
[2020-06-08 04:28] LABS: Mucous, Urine 1+ /hpf (<or=2+); Squamous Epithelial Cells - UA 0-5 SEEN /hpf (5-10)
[2020-06-08 04:29] LABS: Bacteria RARE /hpf (None Seen)
[2020-06-08 04:31] LABS: Anion Gap 6 (5-15); BUN 11 mg/dL (7-18); BUN/Creat Ratio 13.2 RATIO (10-20); Calcium,Total 8.8 mg/dL (8.5-10.1); Chloride 105 mmol/L (98-107); Creatinine, Serum 0.83 mg/dL (0.55-1.02); EST Glomerular Filtration Rate 91 mL/min (>60); Est Glom Filt Rate - Afr Amer 111 mL/min (>60); Estimated Creatinine Clearance 92.59 ml/min; Glucose 115 mg/dL (74-106); Potassium 3.4 mmol/L (3.5-5.1); Sodium Level 139 mmol/L (136-145)
[2020-06-08 05:47] VITALS: RESP 16
[2020-06-08 06:55] LABS: Chlamydia Trachomatis by PCR Negative (Negative); Neisserai gonorrhoeae by PCR Negative (Negative); Probe Check PASS; Sample Adequacy Control PASS; Specimen Processing Control PASS
== END 2020-06-08 05:48 | disposition home or self-care (01) ==
PROVIDERS: Emergency Provider Emergency Medicine
DX: N39.0 Urinary tract infection, site not specified (principal); F17.200 Nicotine dependence, unspecified, uncomplicated
CPT/HCPCS: 80048; 81001; 84703; 85025; 87491; 87591; 99283; A4216

== ENCOUNTER 2020-10-23 21:34 | Emergency (ER) | payer MEDICAID, SELFPAY ==
[2020-10-23 21:35] VITALS: BP 131/60; PULSE 84; RESP 18; TEMP 36.1; O2SAT 100; BMI 22.6
--- NOTE | 2020-10-23 21:38 | EKG12_ITS ---
Test Reason : DYSRHYTHMIA Blood Pressure : / mmHG Vent. Rate : 053 BPM Atrial Rate : 053 BPM P-R Int : 130 ms QRS Dur : 104 ms QT Int : 442 ms P-R-T Axes : 023 070 063 degrees QTc Int : 414 ms Sinus bradycardia Otherwise normal ECG Confirmed by LUKE BUTLER, DEBORAH ([id number]), news copy editor CABRERA FERNANDES ([id number]) on 10/29/2020 11:02:38 AM Referred By: CORTES Confirmed By:KOURTNEY BUTLER MD
[2020-10-23] MEDS: Ziprasidone IM 20 MG/ML VIAL IM (21:44)
[2020-10-23 21:55] LABS: Bedside Glucose 97 mg/dL (70-110)
--- NOTE | 2020-10-23 21:59 | ED.DCSUM_ITS ---
History of Present Illness Chief Complaint: Substance Abuse Informant: Director Of Development And Marketing Onset: Today Narrative: Patient is a 20-year-old female who presents to the emergency department by EMS for agitation. The boyfriend apparently came home and she was not acting herself. She was drinking alcohol today and had a white powder substance in a bag next to her. This time patient unable to provide any history based on her past medical problems. Patient is agitated and yelling at staff. She has flight of ideas and starts talking about caregivers clothes in between answering questions about where her children are at by police. Past Medical History - Allergies and Home Meds Allergies/Adverse Reactions: Allergies levothyroxine sodium [From Synthroid] Allergy (Mild, Verified 10/23/20 21:49) Itching Primary Care Physician: Care Physician,No Primary [Primary Care Provider] - Past Medical History: - - Graves' disease, seizures Smoking Status: Current every day smoker Review of Systems ROS: Unable to Obtain - Due to mental status Physical Exam Vital Signs/Narrative: Vital Signs Temp Pulse Resp BP Pulse Ox 10/23/20 21:35 96.9 F L 84 18 131/60 H 100 Inital Vital Signs reviewed: Yes General: - - Patient required four-point restraints as she is not directable and very agitated. She is trying to get away from staff. Head: Normocephalic, Atraumatic Eyes: EOMI Neck: Supple Cardiovascular: Regular rate, Regular rhythm Respiratory: No distress, CTA bilaterally Abdomen: Nondistended Back: Normal Inspection Extremities: - - Moving all 4 extremities equally. Skin: Normal color, No rash Psychological: Agitated Diagnostic/Tx/Re-eval - EKG Initial EKG Interpretation: - - Rate of 53 bpm in sinus bradycardia. Normal intervals. Normal axis. No significant ST elevations or depressions. No T wave abnormalities. - Medical Decision Making Patient presents to the emergency department for acute agitation. Upon arrival to the emerge department she is requiring restraints. She is very agitated and a potential harm to herself. She has flight of ideas and is not redirectable. She did require dose of IM ziprasidone. Will check basic lab work. Patient's lab work showed the patient to be intoxicated and positive for cannabinoids. Her potassium is low and this will be replaced. She was still agitated despite ziprasidone being given so she is given a dose of Benadryl and Ativan. That time she did fall asleep. Patient will be evaluated by psychiatry once sober. Patient is signed out due to end of shift. She otherwise has been stable throughout ED stay. ED Disposition - Plan for ED Patient: Diagnosis: Alcohol intoxication, Acute psychosis, Hypokalemia Referrals: Care Physician,No Primary [Primary Care Provider] -
[2020-10-23 22:15] LABS: Absolute Lymphocyte Count 2.19 X10^3/uL (0.83-4.51); Absolute Neutrophil Count 2.1 X10^3/uL (2.0-7.7); Basophil# 0.01 X10^3/uL; Basophil% 0.2 % (0-1); Eosinophil# 0.04 X10^3/uL; Eosinophils% 0.9 % (0-5); Hematocrit 34.1 % (37-47); Hemoglobin 10.9 g/dL (12.0-15.0); Lymphocyte # 2.19 X10^3/ul (4.0); Mean Corpuscular Hgb 26.4 pg (27.0-32.0); Mean Corpuscular Volume 82.6 fL (81-99); Mean Platelet Vol. 10.2 fl (6.2-12.0); Monocyte# 0.33 X10^3/uL; Monocyte% 7.1 % (0-10); NRBC Flagged by Analyzer 0 % (0-5); Neutrophil # 2.08 X10^3/uL (2.7-7.7); Neutrophil % 44.6 % (47-70); Platelet Count 407 K/mm3 (150-450); RBC Distribution Width CV 16.5 % (11.6-14.6); RBC Distribution Width SD 49.4 fl (35.1-43.9); Red Blood Count 4.13 M/mm3 (4.2-5.4); White Blood Count 4.7 K/mm3 (4.4-11.0)
--- NOTE | 2020-10-23 22:18 | ED.RN ---
MOTHER UPDATED AND MADE AWARE OF PATIENT CONDITION AND STATUS MOTHER WILL PICK HER UP WHEN SHE IS DISCHARGED [phone]
[2020-10-23 22:25] LABS: Internal QC Validated? YES +Cl - CLEAR BKGD; Pregnancy, Serum, hCG Quali. NEGATIVE Negative
[2020-10-23 22:35] LABS: Amphetamine Urine VISTA NEGATIVE (<1000 ng/mL); Barbiturate Urine VISTA NEGATIVE (< 200 ng/mL); Benzodiazepine Urine VISTA NEGATIVE (< 200 ng/mL); Cocaine Urine VISTA NEGATIVE (< 300 ng/mL); Ecstacy Urine VISTA NEGATIVE (< 500 ng/mL); Methadone Urine VISTA NEGATIVE (< 300 ng/mL); PCP Urine VISTA NEGATIVE (< 25 ng/mL); THC Urine VISTA POSITIVE (< 50 ng/mL); Vista UDS pH Range 6
[2020-10-23 22:35] LABS: ALB/GLOB Ratio 1.1 RATIO (0.9-2.4); AST(SGOT) 13 U/L (15-37); Alanine Aminotransfer ALT/SGPT 17 U/L (13-56); Albumin, Serum 4.3 g/dL (3.2-5.0); Alkaline Phosphatase 77 U/L (45-117); Anion Gap 9 (5-15); BUN 8 mg/dL (7-18); BUN/Creat Ratio 9.5 RATIO (10-20); Calcium,Total 9.2 mg/dL (8.5-10.1); Chloride 113 mmol/L (98-107); Creatinine, Serum 0.84 mg/dL (0.55-1.02); EST Glomerular Filtration Rate 90 mL/min (>60); Est Glom Filt Rate - Afr Amer 109 mL/min (>60); Estimated Creatinine Clearance 90.71 ml/min; Globulin 3.9 g/dL (2.2-4.2); Glucose 93 mg/dL (74-106); Potassium 2.8 mmol/L (3.5-5.1); Protein, Total 8.2 g/dL (6.4-8.2); Sodium Level 146 mmol/L (136-145)
[2020-10-23 23:43] LABS: Magnesium 2.2 mg/dL (1.6-2.6)
[2020-10-23] MEDS: DiphenhydrAMINE 50 MG/ML Syringe 25 MG IM (23:52)
[2020-10-23] MEDS: LORazepam 2 MG/ML Syringe IM (23:52)
[2020-10-23 23:54] VITALS: BP 115/74; PULSE 66; RESP 16; O2SAT 100
[2020-10-24] VITALS (8 sets, daily range): BP systolic 114–126; BP diastolic 54–82; PULSE 64–74; RESP 16; O2SAT 97–100
[2020-10-24] MEDS: Potassium Chloride 10mEq/100mL 10 MEQ/100 ML IV.SOLN. 100 MEQ IV BOLUS ×2 (00:38→01:31)
--- NOTE | 2020-10-24 01:22 | ED.RN ---
PT MOTHER CALLS REQUESTING TO SPEAK WITH PT. THIS RN TALKS WITH MOTHER EXPLAINING THAT THE PT IS SLEEPING AND PROBABLY WILL NOT TALK WITH HER. MOTHER INSISTS. THIS RN ENTERS PT ROOM AND HOLDS PHONE TO PT EAR. PT DOES NOT REPLY TO CONVERSATION AND REMAINS ASLEEP. THIS RN REPORTS TO MOTHER THAT PT WILL BE INFORMED THAT SHE CALLED. INFORMED THAT MEDICAL INFORMATION CAN NOT BE RELEASED WITHOUT PT PERMISSION.
--- NOTE | 2020-10-24 01:31 | ED.RN ---
spoke with patients mother again and updated on patients condition and status. Advised mother not able to discuses drug tox screen or test results due to HIPAA
--- NOTE | 2020-10-24 09:00 | NURSING ---
CALLED [facility]. FAX CHART TO THEM
--- NOTE | 2020-10-24 09:31 | NURSING ---
JOSE M, [facility], WILL HAVE TO WRAP THINGS UP, THEN SHE WILL TALK TO PATIENT
--- NOTE | 2020-10-24 10:39 | ED.RN ---
PT MEDICATED PER ORDERS, REPORTS THAT SHE WANTS TO GO HOME, MADE PATIENT AWARE THAT SHE HAS TO BE EVALUATED BY [facility] COUNSELOR PRIOR TO BEING DISCHARGED. IRRITABLE.
--- NOTE | 2020-10-24 10:41 | NURSING ---
LELA, [facility], FOR PATIENT
--- NOTE | 2020-10-24 11:26 | ED.RN ---
IV DC'ED, CATHETER INTACT, SMALL GAUZE DRESSING PLACED. DISCHARGE INSTRUCTIONS GIVEN TO PATIENT, BELONGINGS RETURNED TO PATIENT. BOYFRIEND (LAISHA) WILL COME GET PATIENT.
--- NOTE | 2020-10-24 11:30 | ED.RN ---
PT AMBULATES OUT OF ROOM WITHOUT DIFFICULTY.
== END 2020-10-24 11:30 | disposition home or self-care (01) ==
PROVIDERS: Emergency Medicine; Emergency Provider Emergency Medicine
DX: F10.129 Alcohol abuse with intoxication, unspecified (principal); F23 Brief psychotic disorder; E87.6 Hypokalemia; F17.200 Nicotine dependence, unspecified, uncomplicated
CPT/HCPCS: 36415; 80053; 80307; 82077; 82962; 83735; 84703; 85025; 93005; 96365; 96366; 96372; 99285; J7030; P9612; A4216; J3486

== ENCOUNTER 2020-11-08 10:01 | Emergency (ER) | payer MEDICAID, SELFPAY ==
[2020-11-08 10:02] VITALS: BP 109/46; PULSE 99; RESP 14; TEMP 35.3; O2SAT 100; BMI 23.3
--- NOTE | 2020-11-08 10:20 | RAD_ITS ---
STUDY: X-RAY - RIGHT FOOT CLINICAL: Inability to dorsiflex foot after right foot kicking injury last night. TECHNIQUE: 3 view(s) of the foot. COMPARISON: None. FINDINGS: Normal talus, calcaneus, and tarsal bones. Normal visualized subtalar, talonavicular, calcaneocuboid, tarsal and tarsometatarsal articulations. Normal metatarsi. Normal metatarsophalangeal joint of the great toe. Normal tibial and fibular sesamoid bones. Normal interphalangeal joint of the great toe. Normal phalanges of the great toe. Normal second through fifth metatarsophalangeal joints. There is a minimally displaced fracture of the fifth proximal phalanx. The soft tissue structures are unremarkable. RAD/Foot min 3 Views IMPRESSION: Fifth proximal phalangeal fracture. Electronically Signed: Gokul Estrada MD at 10:47 EST Tel , Service support ,
--- NOTE | 2020-11-08 10:22 | ED.DCSUM_ITS ---
History of Present Illness Chief Complaint: Lower Extremity Injury Informant: Patient Occurred: Yesterday Mechanism/Context: Injury Onset: Yesterday Context: Sudden Onset Quality of Pain: Sharp Associated Symptoms: Parasthesia Narrative: Patient is a 20-year-old female with history of hypothyroid presenting with right fourth and fifth toe pain/foot pain. Patient states she got up in the middle of the night to use restroom when she struck her foot are on the entertainment system. She not exactly sure how she did or where she hit her foot. She had immediate pain. She states she passed out from the pain. She states her pinky toe was at the wrong angle. Her significant other pulled on it to set it back in place. She states she passed out again from that pain. Since then she has had significant pain her fourth and fifth toes grading of her foot and into her ankle/lower legs. Is worse with weightbearing. She does not take anything for pain. She states she has some paresthesias in a hard time moving her fourth and fifth toes. No other complaints at this time. Denies any prior injuries or problems with her foot. Past Medical History - Allergies and Home Meds Allergies/Adverse Reactions: Allergies levothyroxine sodium [From Synthroid] Allergy (Mild, Verified 11/08/20 10:04) Itching Primary Care Physician: Care Physician,No Primary [Primary Care Provider] - Past Medical History: - - Hypothyroid Lives: Spouse/ Significant Other, With Family Smoking Status: Current every day smoker Review of Systems General: Denies: Chills, Fever, Sweats Eyes: Denies: Visual changes - bilaterally, Diplopia ENT: Denies: Rhinorrhea, Sore throat Cardiovascular: Denies: Chest pain, Palpitations Respiratory: Denies: Dyspnea, Cough, Dyspnea on exertion Gastrointestinal: Denies: Abdominal pain, Nausea, Vomiting, Diarrhea, Melena, Hematochezia Genitourinary: Denies: Dysuria, Hematuria, Frequency Musculoskeletal: Reports: Extremity Pain - Right toe/foot. Denies: Back pain Skin: Denies: Rash, Wounds Neurological: Denies: Headache, Weakness, Numbness Physical Exam Vital Signs/Narrative: Vital Signs Temp Pulse Resp BP Pulse Ox 11/08/20 10:02 95.5 F L 99 14 109/46 L 100 Inital Vital Signs reviewed: Yes - Extremity Exam Right Tib fib: - - Tenderness palpation of the proximal fibula. Negative for: Contusion, Deformity, Limited ROM Right Ankle: Negative for: Contusion, Deformity, Edema, Hematoma, Limited ROM Right Foot: Negative for: Contusion, Deformity, Edema, Limited ROM Right Toe: Limited ROM - Pinky toe, - - Significant tenderness to palpation of the fifth toe diffusely. Negative for: Abrasion, Contusion, Deformity, Edema General: Well nourished, Well developed Head: Normocephalic, Atraumatic Eyes: Perrl, EOMI ENT: No Trauma, Moist Mucous Membranes Neck: Full ROM Cardiovascular: Regular rate, Regular rhythm, No murmurs, - - Bilateral pedal pulses 2+ Respiratory: No distress, Chest nontender Back: Nontender Skin: Normal color, No rash Neurological: Alert, Oriented x3, Cranial nerves II-XII grossly intact, Normal S trength, Normal Sensation Psychological: Normal affect Diagnostic/Tx/Re-eval Clinical Impression(s) from Imaging Studies Foot X-Ray 11/08/20 10:20 IMPRESSION: Fifth proximal phalangeal fracture. Electronically Signed: Gokul Estrada MD at 10:47 EST Tel , Service support , - Medical Decision Making Evaluated for right foot/toe pain. She struck her foot last night. X-ray shows a nondisplaced fracture of fifth proximal phalanges. Patient will be placed in kirstin tape and given a short course of norco for pain control. She is encouraged also take ibuprofen and Tylenol for further pain control. Patient is neurovascularly intact. Patient is counseled on signs and symptoms requiring return to the emergency room. Patient verbalizes agreement and understand this plan. Patient discharged home in stable and improved condition. ED Disposition - Plan for ED Patient: Disposition: Home or Assisted Living Diagnosis: Fracture of fifth toe, right, closed Instructions: ED Fracture, Foot Prescriptions: Hydrocodone Bitart/Apap 5-325 [[place] 5MG-325MG] 1 tablet PO TID PRN 3 Days #9 tablet PRN Reason: Pain Transmission Status: Sent to [facility] #30 Additional Instructions: And ibuprofen and Tylenol as well for pain. Do not take Tylenol with this prescribed pain medication because there is already Tylenol in it.
[2020-11-08] MEDS: HYDROcodone Bitartrate/Apap 5/325 Tablet PO (11:16)
== END 2020-11-08 11:21 | disposition home or self-care (01) ==
PROVIDERS: Emergency Provider Emergency Medicine
DX: S92.501A Displaced unspecified fracture of right lesser toe(s), initial encounter for closed fracture (principal); F17.200 Nicotine dependence, unspecified, uncomplicated; W22.8XXA Striking against or struck by other objects, initial encounter
CPT/HCPCS: 73630; 99283

== ENCOUNTER 2021-05-24 07:13 | Emergency (ER) | payer MEDICAID, SELFPAY ==
[2021-05-24 07:14] VITALS: BP 120/62; PULSE 59; RESP 16; TEMP 36.6; O2SAT 98; BMI 23.6
--- NOTE | 2021-05-24 07:39 | EDS_ITS ---
HPI History of Present Illness Chief Complaint: Abscess Informant: patient Narrative Narrative: Patient reports developing erythema on her left cheek over the last day. Patient states that she was bitten by a bug a little over a year ago. They think it was a brown recluse. She was admitted to the hospital for a period of time at [facility]. She was on antibiotics. They then kept her in the hospital but gave her no treatment for several days. She left AMA. She came here. She was then given clindamycin and Benadryl along with eyedrops. Her eye is not bothering her now. Patient states she has had a sore area on her left cheek for 6 months or more. It never really goes away. She wore a mask for the first time yesterday and now the cheek is getting more red and irritated. Not swelling. No trouble breathing. She has no problems with vision opening or closing her eyes. No nausea vomiting fevers or chills. No history of immunosuppression. Nothing makes this better or worse. PFSH PFS Medical History Hypothyroid Seizure Home Medications clindamycin HCl [Cleocin HCl] 300 mg PO Q6H #40 cap 05/24/21 [Rx Last Taken Unknown] diphenhydramine HCl [Benadryl] 25 mg PO Q6H #28 cap 05/24/21 [Rx Last Taken Unknown] Allergy/AdvReac Type Severity Reaction Status Date / Time levothyroxine sodium Allergy Mild Itching Verified 05/24/21 07:19 [From Synthroid] Family History Mother Cancer unknown Surgical History delivery delivered H/O thyroidectomy Social History Smoking Status: Current every day smoker tobacco type: cigarettes alcohol intake: never substance use type: marijuana caffeine: Yes what type of physical activity do you participate in: none seatbelt use: always do you feel safe at home: Yes additional social history: single- unemployed ROS ROS ED Constitutional Constitutional ED: Denies chills, fever(s) or sweats Eyes Eyes: Denies blurry vision, change in vision or diplopia ENT ENT ED: Reports other Details: See history of present illness. ; Denies ear pain or sore throat Cardiovascular Cardiovascular: Denies racing heartbeat Respiratory/Chest Respiratory/Chest: Denies cough or dyspnea Gastrointestinal Gastrointestinal: Denies nausea or vomiting Musculoskeletal Musculoskeletal: Denies arthralgias or myalgias Integumentary Reports rash Neurologic Neurologic: Denies headache(s) Allergic/Immunologic Allergic/Immunologic ED: Denies urticaria EXAM Physical Exam Const Vital Signs: 05/24/21 07:14 Temperature 98 F Temperature Source Temporal Pulse Rate 59 L Respiratory Rate 16 Blood Pressure 120/62 Blood Pressure Mean 81 Pulse Ox 98 Oxygen Delivery Method Room Air Positive well nourished and well developed Constitutional Narrative: Patient is sitting calmly in a chair on the phone. No acute distress. General Appearance ED: well developed and NAD HEENT HEENT Narrative: There is a slightly eroded area about 1.5 cm around on the left cheek. There is a little bit of erythema surrounding this. Most of this is above that area. There is no abscess. Even placing a finger in the mouth and feeling the tissue there is no pocket or swollen area. No indication for drainage at all. Eyes Eyes Narrative: No involvement of her lids. No swelling of the lids. No erythema the eyes. No pain with motion of the eyes. Neck no lymphadenopathy and supple Neck Narrative: Prior thyroidectomy scar. No lymphadenopathy. Resp normal respiratory effort and clear to auscultation bilaterally Cardio regular rate Neuro oriented x3 Sensorium / Orientation: alert Psych mental status grossly normal Skin Skin Narrative: See above description. General Skin Exam: other MDM MDM MDM Narrative Medical decision making narrative: I reviewed the patient's prior note from November of last she here. She was placed on ofloxacin eyedrops, clindamycin and Benadryl. At this point there is no ocular involvement at all. We will stay with clindamycin as she had very good success with this. Originally I was going to place her on Bactrim and Keflex. She states that there were 2 drugs that she was placed on at [facility] originally that did not work. She thinks Bactrim and Keflex may have been the ones. For that reason I will stick with clindamycin in this case. If she develops further swelling, trouble breathing or swallowing, fevers chills nausea vomiting or any other concerns she should return. Discharge Plan Triage Chief Complaint: Abscess ED Provider: Benja Guerrero Dx/Rx/DC Orders Clinical Impression: Cellulitis, face Instructions: ED Cellulitis, Facial Prescriptions: New clindamycin HCl [Cleocin HCl] 300 MG capsule 300 mg PO Q6H Qty: 40 RF: 0 diphenhydramine HCl [Benadryl] 25 mg capsule 25 mg PO Q6H Qty: 28 RF: 0 Primary Care Provider: Care Physician,No Primary Referrals: Aniket Bergeron MD [STAFF PHYSICIAN] - 3-5 Days Care Physician,No Primary [Primary Care Provider] - Disposition Disposition: Home, Self Care
[2021-05-24 07:56] VITALS: BP 118/59; PULSE 72; RESP 15; O2SAT 99
[2021-05-24] MEDS: DiphenhydrAMINE 25 MG Capsule PO (07:56)
[2021-05-24] MEDS: Clindamycin HCl 150 MG Capsule 300 MG PO (07:56)
== END 2021-05-24 07:56 | disposition home or self-care (01) ==
LOC: ED 07:45
PROVIDERS: Emergency Provider Emergency Medicine
DX: L03.211 Cellulitis of face (principal); F17.210 Nicotine dependence, cigarettes, uncomplicated; F12.10 Cannabis abuse, uncomplicated; Z56.0 Unemployment, unspecified
CPT/HCPCS: 99285